=== PATIENT | male | born 1955 | race Caucasian/White ===

== ENCOUNTER 2017-10-29 20:22 | Inpatient (IN) | payer BC, OTHER ==
[2017-10-29] MEDS ORDERED: Sodium Chloride 0.9% 1,000 ML IV STA (20:42)
[2017-10-29] MEDS ORDERED: Morphine 4 MG/ML VIAL ONE ×2 (21:09→22:36)
[2017-10-29 21:25] LABS: BASO % 0.1 % (0.0-2.0); EOS % 0.1 % (0.0-4.0); HEMOGLOBIN 13.2 g/dL (12.0-18.0); LYMPH # 0.4 K/uL (1.0-4.3); LYMPH % 3.4 % (20.0-40.0); MEAN CELL VOLUME 87.4 fl (80.0-94.0); MEAN CORPUSCULAR HEMOGLOBIN 29.9 pg (27.0-31.0); MEAN CORPUSCULAR HGB CONC 34.2 g/dL (33.0-37.0); MEAN PLATELET VOLUME 6.7 fl (7.2-11.7); MONO # 0.4 K/uL (0.0-0.8); NEUT # 10.3 K/uL (1.8-7.0); NEUT % 92.4 % (50.0-75.0); PLATELET COUNT 317 K/uL (130-400); RBC 4.43 Mil/uL (4.40-5.90); RED CELL DISTRIBUTION WIDTH 13.9 % (11.5-14.5); WHITE BLOOD COUNT 11.1 K/uL (4.8-10.8)
--- NOTE | 2017-10-29 21:26 | ED PDOC ---
HPI: Abdomen Time Seen by Provider: 10/29/17 20:30 Chief Complaint (Nursing): Abdominal Pain Chief Complaint (Provider): abdominal pain History Per: Patient History/Exam Limitations: no limitations Onset/Duration Of Symptoms: Days (1), Gradual, Persistent Current Symptoms Are (Timing): Still Present Location Of Pain/Discomfort: RUQ, RLQ Quality Of Discomfort: "Pain" Associated Symptoms: Nausea, Vomiting, Diarrhea, Loss Of Appetite, Other ( distension). denies: Fever, Chills, Constipation, Urinary Symptoms Exacerbating Factors: Movement Alleviating Factors: None Past Medical History Reviewed: Historical Data, Nursing Documentation, Vital Signs Vital Signs: Last Vital Signs Temp 98.6 F 11/01/17 16:25 Pulse 69 11/01/17 16:25 Resp 20 11/01/17 16:25 BP 107/66 11/01/17 16:25 Pulse Ox 97 11/01/17 16:25 - Medical History PMH: Diverticulitis, HTN - Surgical History Surgical History: Hernia Repair (Umbilical) - Family History Family History: States: Hypertension - Living Arrangements Living Arrangements: With Family - Social History Current smoker - smoking cessation education provided: No Alcohol: None - Home Medications Home Medications: Ambulatory Orders Medication Instructions Recorded Aspirin [Lo-Dose Aspirin EC] 81 mg PO DAILY 10/30/17 Gabapentin [Neurontin] 300 mg PO BID 10/30/17 Metoprolol Tartrate [Lopressor] 25 mg PO BID 10/30/17 Naproxen [Naprosyn] 500 mg PO Q12H 10/30/17 Zolpidem [Ambien] 10 mg PO HS 10/30/17 - Allergies Allergies/Adverse Reactions: Allergies Allergy/AdvReac Type Severity Reaction Status Date / Time No Known Allergies Allergy Verified 10/29/17 20:24 Review of Systems ROS Statement: Except As Marked, All Systems Reviewed And Found Negative Constitutional: Negative for: Fever, Chills Gastrointestinal: Positive for: Nausea, Vomiting, Abdominal Pain, Diarrhea. Negative for: Constipation, Melena, Hematochezia, Rectal Pain Physical Exam - Reviewed Nursing Documentation Reviewed: Yes Vital Signs Reviewed: Yes - Physical Exam Appears: Positive for: Uncomfortable, In Acute Distress Head Exam: Positive for: ATRAUMATIC, NORMOCEPHALIC Skin: Positive for: Warm, Dry Eye Exam: Positive for: EOMI, PERRL ENT: Negative for: Pharyngeal Erythema, Tonsillar Exudate Neck: Positive for: Painless ROM, Supple Cardiovascular/Chest: Positive for: Regular Rate, Rhythm. Negative for: Murmur Respiratory: Positive for: Normal Breath Sounds. Negative for: Wheezing Gastrointestinal/Abdominal: Positive for: Soft, Tenderness (diffuse RIGHT>LEFT) , Distended. Negative for: Mass, Guarding, Rebound Back: Positive for: Normal Inspection. Negative for: Decreased ROM Extremity: Positive for: Normal ROM. Negative for: Deformity Lymphatic: Negative for: Adenopathy Neurologic/Psych: Positive for: Alert. Negative for: Motor/Sensory Deficits - Laboratory Results Result Diagrams: 11/01/17 05:30 11/01/17 05:30 Interpretation Of Abn Labs: Minimally elevated WBC - ECG ECG: Positive for: Interpreted By Me ECG Rhythm: Positive for: Normal QRS, Normal ST Segment, Sinus Rhythm O2 Sat by Pulse Oximetry: 96 Pulse Ox Interpretation: Normal - Other Rad Obstructive series X-Ray: Interpreted by Me X-Ray Interpretation: Airfluid levels x 5, otherwise NSBGP. No free air. No inf/ effusion - Progress ED Course And Treament: Pt's pain persisted despite IV Morphine. EXAM: CT Abdomen and Pelvis With Intravenous Contrast CLINICAL HISTORY: 61 years old, male; Pain; Abdominal pain; Localized; Right lower quadrant (rlq); Prior surgery; Surgery date: 6+ months; Surgery type: Hernia surgery yrs ago; Additional info: Severe abd pain and distension TECHNIQUE: Axial computed tomography images of the abdomen and pelvis with intravenous contrast. All CT scans at this facility use at least one of these dose optimization techniques: automated exposure control; mA and/or kV adjustment per patient size (includes targeted exams where dose is matched to clinical indication); or iterative reconstruction. Coronal and sagittal reformatted images were created and reviewed. CONTRAST: 95 mL of [id number] was administered intravenously. COMPARISON: No relevant prior studies available. FINDINGS: Lung bases: Atelectasis posterior lungs. ABDOMEN: Liver: 1.1 cm subcapsular cyst in the anterior liver. Gallbladder and bile ducts: Unremarkable. No calcified stones. No ductal dilation. Pancreas: Unremarkable. No mass. No ductal dilation. Spleen: Unremarkable. No splenomegaly. Adrenals: Unremarkable. No mass. Kidneys and ureters: Unremarkable. No solid mass. No hydronephrosis. Stomach and bowel: Mild mucosal thickening in the sigmoid colon where there are numerous diverticula. There is a small amount of gas and fluid adjacent to the sigmoid colon but no definite abscess. Fluid in the right colon consistent with diarrhea. No obstruction. PELVIS: Appendix: Normal appendix. Bladder: Unremarkable. No mass. Reproductive: Unremarkable as visualized. ABDOMEN and PELVIS: Intraperitoneal space: Unremarkable. No free air. No significant fluid collection. Bones/joints: No acute fracture. No dislocation. Soft tissues: Bilateral inguinal hernias containing fat. Vasculature: Unremarkable. No abdominal aortic aneurysm. Lymph nodes: Unremarkable. No enlarged lymph nodes. IMPRESSION: 1. Mild mucosal thickening in the sigmoid colon where there are numerous diverticula. Findings consistent with acute diverticulitis. 2. There is a small amount of gas and fluid adjacent to the sigmoid colon but no definite abscess. Findings consistent with perforation. 3. Fluid in the right colon consistent with diarrhea. Thank you for allowing us to participate in the care of your patient. Dictated and Authenticated by: Saeed Andrade MD 10/29/2017 11:27 PM Eastern Time ([place] & [place]) IV antibiotics ordered DW pt findings and plan of care. DW Dr Viveros for [facility] Re-evaluation Time: 23:00 Condition: Unchanged Medical Decision Making Medical Decision Making: Time: 2099 Plan: -- Type and Screen -- CT Abd/Pelvis IV Contrast -- EKG -- CMP -- Lact Acid, Plasma -- Lipase -- Magnesium -- Phosphorus -- ED Urine Dipstick -- CBC with differentials -- PTT -- Prothrombin Time -- Obstructive Series XR -- Morphine 4 mg IVP -- Sodium Chloride IV 1000 mls/hr -- Zofran Inj 8 mg IV Time: 2223 Plan: -- Morphine 6 mg IVP -- Blood Culture Time: 2341 Plan: -- General Surgery Consult -- Cipro 400 mg in 200 ml IV -- Flagyl [500 mg/100 ml NS] 100 ml IV DW pt findings and plan of care. Admitted to [facility] and Dr Viveros made aware. Scribe Attestation: Documented by Husam Dolan acting as a scribe for Stephania Mcrae MD. Provider Scribe Attestation: All medical record entries made by the Scribe were at my direction and personally dictated by me. I have reviewed the chart and agree that the record accurately reflects my personal performance of the medical decision making for this patient. I have also personally directed, reviewed, and agree with the discharge instructions and disposition. Disposition - Clinical Impression Clinical Impression: Diverticulitis Discussed With Dr.: Flex Viveros Doctor Will See Patient In The: Hospital Counseled Patient/Family Regarding: Studies Performed, Diagnosis - Disposition Disposition Time: 23:00 Condition: FAIR - Pt Status Changed To: Hospital Disposition Of: Observation - POA Present On Arrival: None
[2017-10-29 21:27] LABS: INR 1.2; PROTHROMBIN TIME 13.8 Seconds (9.8-13.1)
[2017-10-29 21:30] LABS: PARTIAL THROMBOPLASTIN TIME 30.6 Seconds (25.6-37.1)
[2017-10-29 21:34] LABS: ALB/GLOB RATIO 1.2 (1.0-2.1); ALBUMIN 3.9 g/dL (3.5-5.0); ALT/SGPT 37 U/L (21-72); AST/SGOT 28 U/L (17-59); BLOOD UREA NITROGEN 14 mg/dl (9-20); CALCIUM 8.9 mg/dL (8.4-10.2); GFR NON-AFRICAN AMERICAN > 60
[2017-10-29 21:59] LABS: LIPASE < 10 U/L (23-300)
[2017-10-29 22:45] LABS: TOTAL CELLS COUNTED 100
[2017-10-29 22:46] LABS: ANISOCYTOSIS SLIGHT; GIANT PLATELETS PRESENT; LYMPHOCYTE 2 % (20-50); MONOCYTE 5 % (0-10); NEUTROPHIL 93 % (42-75); PLATELET ESTIMATE NORMAL (NORMAL); ROULEAUX FORMATION SLIGHT
[2017-10-29] MEDS ORDERED: Iohexol 300 100 ML IJ ONE ×2 (22:54)
[2017-10-29] MEDS ORDERED: Sodium Chloride 0.9% 50 ML IV ONE (22:54)
[2017-10-29] MEDS ORDERED: Ciprofloxacin 400mg/200ml D5W 400 MG/200 ML BAG IV STA (23:28)
[2017-10-29] MEDS ORDERED: metroNIDAZOLE 500mg/100ml NS 100 ML IV STA (23:28)
[2017-10-30] MEDS ORDERED: Ciprofloxacin 400mg/200ml D5W 400 MG/200 ML BAG IVPB ONE (00:42)
[2017-10-30] MEDS ORDERED: metroNIDAZOLE 500mg/100ml NS 100 ML IVPB ONE (00:42)
--- NOTE | 2017-10-30 00:54 | CP.PCM.CON ---
<Tj Jacob - Last Filed: 10/30/17 00:38> History of Present Illness - History of Present Illness History of Present Illness: General Surgery Consult Re: diverticulitis with microperforation HPI: 61M presented to the ED with RLQ/suprapubic abd pain that began earlier today. Pain kept increasing and he had some nausea with bilious, nonbloody emesis and a small amount of nonbloody stool. By noon he had trouble moving due to the pain. Occasional chills. Had a colonoscopy last which showed severe diverticulosis in the sigmoid and he has a referral to a surgeon at [place] with an appointment on the . Also had a recent stress test that he is following up on the as well. PMH: Hx gastric ulcers, HTN, diverticulosis, heart valve regurg PSH: umbilical hernia, R trigger finger, L hand surgery FH: noncontributory SH: No tobacco, EtOH, or drug use, Works at [employer] All: NKDA Meds: See MAR Review of Systems - Review of Systems All systems: reviewed and no additional remarkable complaints except (as per HPI ) Past Patient History - Past Social History Alcohol: None - CARDIAC Hx Hypertension: Yes - GASTROINTESTINAL Hx Diverticulitis: Yes - PSYCHIATRIC Hx Substance Use: No - SURGICAL HISTORY Hx Herniorrhaphy: Yes Meds Allergies/Adverse Reactions: Allergies Allergy/AdvReac Type Severity Reaction Status Date / Time No Known Allergies Allergy Verified 10/29/17 20:24 Physical Exam - Constitutional Appears: Non-toxic, No Acute Distress - Head Exam Head Exam: ATRAUMATIC, NORMOCEPHALIC - Eye Exam Eye Exam: EOMI. absent: Scleral icterus - ENT Exam ENT Exam: Mucous Membranes Moist Additional comments: trachea midline - Neck Exam Neck exam: Positive for: Full Rom. Negative for: Tenderness - Respiratory Exam Respiratory Exam: NORMAL BREATHING PATTERN. absent: Respiratory Distress - Cardiovascular Exam Cardiovascular Exam: RRR, +S1, +S2 - GI/Abdominal Exam GI & Abdominal Exam: Distended, Soft, Tenderness (worst in RLQ and suprapubic area). absent: Firm, Guarding, Hernia, Rebound, Rigid Additional comments: Lap hernia repair scars, well healed Diastasis recti - Rectal Exam Rectal Exam: Deferred - Extremities Exam Extremities exam: Positive for: normal capillary refill, pedal pulses present. Negative for: calf tenderness, pedal edema - Back Exam Back exam: absent: CVA tenderness (L), CVA tenderness (R) - Neurological Exam Neurological exam: Alert, Oriented x3 - Skin Skin Exam: Dry, Warm Results - Vital Signs Recent Vital Signs: Last Vital Signs Temp 99.3 F 10/29/17 20:24 Pulse 93 H 10/29/17 20:24 Resp 18 10/29/17 20:24 BP 97/58 L 10/29/17 20:24 Pulse Ox 96 10/30/17 00:10 - Labs Result Diagrams: 10/29/17 21:00 10/29/17 21:00 Labs: Laboratory Results - last 24 hr 10/29/17 10/29/17 10/29/17 21:00 21:00 21:00 WBC 11.1 H RBC 4.43 Hgb 13.2 Hct 38.7 MCV 87.4 MCH 29.9 MCHC 34.2 RDW 13.9 Plt Count 317 MPV 6.7 L Neut % (Auto) 92.4 H Lymph % (Auto) 3.4 L Pettis % (Auto) 4.0 Eos % (Auto) 0.1 Baso % (Auto) 0.1 Neut # (Auto) 10.3 H Lymph # (Auto) 0.4 L Pettis # (Auto) 0.4 Eos # (Auto) 0.0 Baso # (Auto) 0.0 Neutrophils % (Manual) 93 H Lymphocytes % (Manual) 2 L Monocytes % (Manual) 5 Platelet Estimate Normal Giant Platelets Present Anisocytosis (manual) Slight Rouleaux Slight PT 13.8 H INR 1.2 APTT 30.6 Sodium 140 Potassium 3.7 Chloride 107 Carbon Dioxide 23 Anion Gap 14 BUN 14 Creatinine 1.2 Est GFR ( Amer) > 60 Est GFR (Non-Af Amer) > 60 Random Glucose 112 H Lactic Acid Calcium 8.9 Phosphorus 2.6 Magnesium 2.0 Total Bilirubin 1.3 AST 28 ALT 37 Alkaline Phosphatase 115 Total Protein 7.1 Albumin 3.9 Globulin 3.2 Albumin/Globulin Ratio 1.2 Lipase < 10 L Blood Type Antibody Screen BBK History Checked 10/29/17 10/29/17 21:00 21:00 WBC RBC Hgb Hct MCV MCH MCHC RDW Plt Count MPV Neut % (Auto) Lymph % (Auto) Pettis % (Auto) Eos % (Auto) Baso % (Auto) Neut # (Auto) Lymph # (Auto) Pettis # (Auto) Eos # (Auto) Baso # (Auto) Neutrophils % (Manual) Lymphocytes % (Manual) Monocytes % (Manual) Platelet Estimate Giant Platelets Anisocytosis (manual) Rouleaux PT INR APTT Sodium Potassium Chloride Carbon Dioxide Anion Gap BUN Creatinine Est GFR ( Amer) Est GFR (Non-Af Amer) Random Glucose Lactic Acid 1.4 Calcium Phosphorus Magnesium Total Bilirubin AST ALT Alkaline Phosphatase Total Protein Albumin Globulin Albumin/Globulin Ratio Lipase Blood Type O POSITIVE Antibody Screen Negative BBK History Checked No verified bt - Imaging and Cardiology CT scan - abdomen Status: Image reviewed by me, Report reviewed by me Assessment & Plan - Assessment and Plan (Free Text) Assessment: 61M with diverticulitis, possible microperforation. Plan: Serial abd exams NPO IVF Analgesia Continue abx Will discuss with Dr. Kasandra Jacob PGY4 <Jay Slaughter - Last Filed: 10/30/17 10:25> History of Present Illness - History of Present Illness History of Present Illness: Patient was seen and examined at the bedside. Agree with resident's note above. Meds - Medications Medications: Current Medications Hydromorphone HCl (Dilaudid) 1 mg IVP Q4 PRN PRN Reason: Pain, severe (8-10) Sodium Chloride (Sodium Chloride 0.9%) 1,000 mls @ 125 mls/hr IV .Q8H [facility] Stop: 10/31/17 01:11 Last Admin: 10/30/17 04:04 Dose: 125 mls/hr Sodium Chloride (Sodium Chloride 0.9%) 1,000 mls @ 1,000 mls/hr IV .Q1H [facility] Stop: 10/31/17 01:21 Last Admin: 10/30/17 05:57 Dose: 1,000 mls/hr Piperacillin Sod/Tazobactam (Sod 3.375 gm/ Sodium Chloride) 100 mls @ 100 mls/ hr IVPB Q6 ANTIONE PRN Reason: Protocol Last Admin: 10/30/17 09:20 Dose: 100 mls/hr Lactated Ringer's (Lactated Ringer's) 1,000 mls @ 0 mls/hr IV .Q0M ANTIONE PRN Reason: UD Morphine Sulfate (Morphine) 4 mg IVP Q4 PRN PRN Reason: Pain, moderate (4-7) Last Admin: 10/30/17 08:05 Dose: 4 mg Ondansetron HCl (Zofran Inj) 4 mg IVP Q4 PRN PRN Reason: Nausea/Vomiting Physical Exam - GI/Abdominal Exam Additional comments: soft, diffusely tender, distended, BS+, well healed scars from prior surgery Results - Vital Signs Recent Vital Signs: Last Vital Signs Temp 98.8 F 10/30/17 08:02 Pulse 81 10/30/17 08:02 Resp 20 10/30/17 08:02 BP 95/60 L 10/30/17 08:02 Pulse Ox 95 10/30/17 08:02 - Labs Result Diagrams: 10/29/17 21:00 10/29/17 21:00 Labs: Laboratory Results - last 24 hr 10/29/17 10/29/17 10/29/17 21:00 21:00 21:00 WBC 11.1 H RBC 4.43 Hgb 13.2 Hct 38.7 MCV 87.4 MCH 29.9 MCHC 34.2 RDW 13.9 Plt Count 317 MPV 6.7 L Neut % (Auto) 92.4 H Lymph % (Auto) 3.4 L Pettis % (Auto) 4.0 Eos % (Auto) 0.1 Baso % (Auto) 0.1 Neut # (Auto) 10.3 H Lymph # (Auto) 0.4 L Pettis # (Auto) 0.4 Eos # (Auto) 0.0 Baso # (Auto) 0.0 Neutrophils % (Manual) 93 H Lymphocytes % (Manual) 2 L Monocytes % (Manual) 5 Platelet Estimate Normal Giant Platelets Present Anisocytosis (manual) Slight Rouleaux Slight PT 13.8 H INR 1.2 APTT 30.6 Sodium 140 Potassium 3.7 Chloride 107 Carbon Dioxide 23 Anion Gap 14 BUN 14 Creatinine 1.2 Est GFR ( Amer) > 60 Est GFR (Non-Af Amer) > 60 POC Glucose (mg/dL) Random Glucose 112 H Lactic Acid Calcium 8.9 Phosphorus 2.6 Magnesium 2.0 Total Bilirubin 1.3 AST 28 ALT 37 Alkaline Phosphatase 115 Total Protein 7.1 Albumin 3.9 Globulin 3.2 Albumin/Globulin Ratio 1.2 Lipase < 10 L Blood Type Antibody Screen BBK History Checked 10/29/17 10/29/17 10/30/17 21:00 21:00 01:11 WBC RBC Hgb Hct MCV MCH MCHC RDW Plt Count MPV Neut % (Auto) Lymph % (Auto) Pettis % (Auto) Eos % (Auto) Baso % (Auto) Neut # (Auto) Lymph # (Auto) Pettis # (Auto) Eos # (Auto) Baso # (Auto) Neutrophils % (Manual) Lymphocytes % (Manual) Monocytes % (Manual) Platelet Estimate Giant Platelets Anisocytosis (manual) Rouleaux PT INR APTT Sodium Potassium Chloride Carbon Dioxide Anion Gap BUN Creatinine Est GFR ( Amer) Est GFR (Non-Af Amer) POC Glucose (mg/dL) 240 H Random Glucose Lactic Acid 1.4 Calcium Phosphorus Magnesium Total Bilirubin AST ALT Alkaline Phosphatase Total Protein Albumin Globulin Albumin/Globulin Ratio Lipase Blood Type O POSITIVE Antibody Screen Negative BBK History Checked No verified bt - Imaging and Cardiology CT scan - abdomen Status: Image reviewed by me, Report reviewed by me Assessment & Plan - Assessment and Plan (Free Text) Plan: - Keep NPO - IV fluids - 1 litter bolus now - Continue antibiotics - Pain control - Repeat labs in am - Will follow
[2017-10-30] MEDS ORDERED: Morphine 4 MG/ML VIAL IVP PRN (01:12)
[2017-10-30] MEDS ORDERED: Sodium Chloride 0.9% 1,000 ML IV SCH (01:30)
[2017-10-30] MEDS ORDERED: Morphine 4 MG/ML VIAL ONE (03:18)
[2017-10-30] MEDS: Sodium Chloride 0.9% 1,000 ML IV SCH ×3 (04:04→22:34)
[2017-10-30] MEDS ORDERED: Piperacillin/Tazobact 3.375 GM in Sodium Chloride 0.9% 100 ML IVPB STA (04:37)
--- NOTE | 2017-10-30 08:47 | CARD ---
APPROVED REPORT Date of service: 10/29/2017 <Conclusion> Normal sinus rhythm Normal ECG
--- NOTE | 2017-10-30 09:00 | RAD ---
Date of service: 10/29/2017 PROCEDURE: Radiographs of the chest and abdomen (obstructive series) HISTORY: abd pain and distension COMPARISON: No prior. TECHNIQUE: AP radiograph of the chest, with upright and supine radiographs of the abdomen. FINDINGS: CHEST: Lungs: The lungs are well inflated and clear. Cardiovascular: Normal size heart. No pulmonary vascular congestion. Pleura: No pleural fluid. No pneumothorax. Other findings: None. ABDOMEN AND PELVIS: Bowel: There are small fluid levels in the abdomen. . Free air: None. Bones: Unremarkable. Other findings: None. IMPRESSION: Clear lungs. Small fluid levels may represent nonspecific enteritis or ileus.
[2017-10-30] MEDS: Piperacillin/Tazobact 3.375 GM in Sodium Chloride 0.9% 100 ML IVPB SCH ×3 (09:20→21:24)
[2017-10-30] MEDS ORDERED: HYDROmorphone 1 mg/ml ISec IVP PRN (10:20)
[2017-10-30] MEDS ORDERED: Lactated Ringer's 1,000 ML IV SCH ×2 (10:30)
--- NOTE | 2017-10-30 11:09 | CT ---
Date of service: 10/29/2017 PROCEDURE: CT Abdomen and Pelvis with contrast HISTORY: severe abd pain and distension COMPARISON: None available TECHNIQUE: Contrast dose: 95 mL Omnipaque 300 Radiation dose: Total exam DLP = 786.36 mGy-cm. This CT exam was performed using one or more of the following dose reduction techniques: Automated exposure control, adjustment of the mA and/or kV according to patient size, and/or use of iterative reconstruction technique. FINDINGS: LOWER THORAX: Bibasilar infiltrates. LIVER: 1.1 cm low-density lesion within the anterior appears consistent with a cyst. Hypoattenuation of the liver compatible with hepatic steatosis. GALLBLADDER AND BILE DUCTS: Gallbladder distension without evidence of gallstone. PANCREAS: Fatty atrophy. SPLEEN: Unremarkable. ADRENALS: Unremarkable. KIDNEYS AND URETERS: The kidneys enhance symmetrically. No hydronephrosis or obstructing calculus identified. VASCULATURE: No aortic aneurysm. BOWEL: Stomach is nondistended. Lack of oral contrast limits evaluation for bowel pathology. Bowel loops appear within normal limits of caliber without evidence of obstruction. Mild mucosal thickening involving the sigmoid colon in region with numerous diverticula. Small gas and fluid adjacent the sigmoid colon. No definite abscess. Fluid within the right colon may be seen in the setting of diarrheal illness. APPENDIX: The appendix appears within normal limits of caliber. No secondary signs of acute appendicitis. LYMPH NODES: No bulky adenopathy identified. BLADDER: Unremarkable. REPRODUCTIVE: Prostate gland measures approximately 4.0 x 4.6 cm. BONES: Degenerative changes. OTHER FINDINGS: Bilateral fat containing inguinal hernias. Tiny ventral wall hernia. IMPRESSION: Findings as above appear consistent with acute diverticulitis involving the sigmoid colon. Small amount of gas and fluid adjacent to the sigmoid colon without definite abscess. Findings consistent with small perforation. Enlarged prostate gland. Recommend correlation with PSA. Gallbladder distension without evidence of gallstone. Suggest correlation with right upper quadrant ultrasound. Additional findings as above. Preliminary impression was provided by virtual radiologic. Study has been marked for PA review.
--- NOTE | 2017-10-30 11:48 | CP.PCM.HP ---
History of Present Illness - History of Present Illness History of Present Illness: 61M presented to the ED with RLQ/suprapubic abd pain that began earlier today. Pain kept increasing and he had some nausea with bilious, nonbloody emesis and a small amount of nonbloody stool. By noon he had trouble moving due to the pain. Occasional chills. Had a colonoscopy last which showed severe diverticulosis in the sigmoid and he has a referral to a surgeon at [place] with an appointment on the . Also had a recent stress test that he is following up on the as well. pt is stable now, c/o pain, vss. Present on Admission - Present on Admission Any Indicators Present on Admission: No Review of Systems - Constitutional Constitutional: absent: As Per HPI, Anorexia, Chills, Daytime Sleepiness, Excessive Sweating, Fatigue, Fever, Frequent Falls, Headache, Increased Appetite , Lethargy, Malaise, Night Sweats, Snoring, Sleep Apnea, Weight Gain, Weight Loss, Weakness, Other - EENT Eyes: absent: As Per HPI, Blind Spots, Blurred Vision, Change in Vision, Decreased Night Vision, Diplopia, Discharge, Dry Eye, Exophthalmos, Floaters, Irritation, Itchy Eyes, Loss of Peripheral Vision, Pain, Photophobia, Requires Corrective Lenses, Sees Flashes, Spots in Vision, Tunnel Vision, Other Visual Disturbances, Loss of Vision, Other Nose/Mouth/Throat: absent: As Per HPI, Epistaxis, Nasal Congestion, Nasal Discharge, Nasal Obstruction, Nasal Trauma, Nose Pain, Post Nasal Drip, Sinus Pain, Sinus Pressure, Bleeding Gums, Change in Voice, Dental Pain, Dry Mouth, Dysphagia, Halitosis, Hoarsness, Lip Swelling, Mouth Lesions, Mouth Pain, Odynophagia, Sore Throat, Throat Swelling, Tongue Swelling, Facial Pain, Neck Pain, Neck Mass, Other - Cardiovascular Cardiovascular: absent: As Per HPI, Acrocyanosis, Chest Pain, Chest Pain at Rest , Chest Pain with Activity, Claudication, Diaphoresis, Dyspnea, Dyspnea on Exertion, Edema, Irregular Heart Rhythm, Pain Radiating to Arm/Neck/Jaw, Leg Edema, Leg Ulcers, Lightheadedness, Orthopnea, Palpitations, Paroxysmal Nocturnal Dyspnea, Pedal Edema, Radiating Pain, Rapid Heart Rate, Slow Heart Rate, Syncope, Other - Respiratory Respiratory: absent: As Per HPI, Cough, Dyspnea, Hemoptysis, Dyspnea on Exertion , Wheezing, Snoring, Stridor, Pain on Inspiration, Chest Congestion, Excessive Mucous Production, Change in Mucous Color, Pain with Coughing, Other - Gastrointestinal Gastrointestinal: Abdominal Pain - Neurological Neurological: absent: As Per HPI, Abnormal Gait, Abnormal Hearing, Abnormal Movements, Abnormal Speech, Behavioral Changes, Burning Sensations, Confusion, Convulsions, Disequilibrium, Dizziness, Numbness, Focal Weakness, Frequent Falls , Headaches, Lack of Coordination, Loss of Vision, Memory Loss, Paresthesias, Radicular Pain, Restless Legs, Sensory Deficit, Syncope, Tingling, Tremor, Vertigo, Weakness, Other Visual Disturbances, Other Past Patient History - Past Social History Smoking Status: Never Smoked - CARDIAC Hx Hypertension: Yes Other/Comment: heart valve regurgitation - PULMONARY Hx Respiratory Disorders: No - NEUROLOGICAL Hx Neurological Disorder: No - HEENT Hx HEENT Problems: No - RENAL Hx Chronic Kidney Disease: No - ENDOCRINE/METABOLIC Hx Endocrine Disorders: No - HEMATOLOGICAL/ONCOLOGICAL Hx Blood Disorders: No - INTEGUMENTARY Hx Dermatological Problems: No - MUSCULOSKELETAL/RHEUMATOLOGICAL Hx Falls: No - GASTROINTESTINAL Hx Diverticulitis: Yes - GENITOURINARY/GYNECOLOGICAL Hx Genitourinary Disorders: No - PSYCHIATRIC Hx Substance Use: No - SURGICAL HISTORY Hx Herniorrhaphy: Yes Other/Comment: Hand surgery - ANESTHESIA Hx Anesthesia: Yes Hx Anesthesia Reactions: No Hx Malignant Hyperthermia: No Has any member of the family had a problem w/ anesthesia?: No Meds Allergies/Adverse Reactions: Allergies Allergy/AdvReac Type Severity Reaction Status Date / Time No Known Allergies Allergy Verified 10/29/17 20:24 Physical Exam - Constitutional Appears: Non-toxic - Head Exam Head Exam: NORMAL INSPECTION - Eye Exam Eye Exam: Normal appearance Pupil Exam: NORMAL ACCOMODATION - ENT Exam ENT Exam: Mucous Membranes Moist - Respiratory Exam Respiratory Exam: Clear to Auscultation Bilateral, NORMAL BREATHING PATTERN - Cardiovascular Exam Cardiovascular Exam: REGULAR RHYTHM, +S1, +S2 - GI/Abdominal Exam GI & Abdominal Exam: Tenderness - Extremities Exam Extremities exam: Positive for: normal inspection - Neurological Exam Neurological exam: Alert, Oriented x3 Results - Vital Signs Recent Vital Signs: Last Vital Signs Temp 98.8 F 10/30/17 08:02 Pulse 81 10/30/17 08:02 Resp 20 10/30/17 08:02 BP 95/60 L 10/30/17 08:02 Pulse Ox 95 10/30/17 08:02 - Labs Result Diagrams: 10/29/17 21:00 10/29/17 21:00 Labs: Laboratory Results - last 24 hr 10/29/17 10/29/17 10/29/17 21:00 21:00 21:00 WBC 11.1 H RBC 4.43 Hgb 13.2 Hct 38.7 MCV 87.4 MCH 29.9 MCHC 34.2 RDW 13.9 Plt Count 317 MPV 6.7 L Neut % (Auto) 92.4 H Lymph % (Auto) 3.4 L Hays % (Auto) 4.0 Eos % (Auto) 0.1 Baso % (Auto) 0.1 Neut # (Auto) 10.3 H Lymph # (Auto) 0.4 L Hays # (Auto) 0.4 Eos # (Auto) 0.0 Baso # (Auto) 0.0 Neutrophils % (Manual) 93 H Lymphocytes % (Manual) 2 L Monocytes % (Manual) 5 Platelet Estimate Normal Giant Platelets Present Anisocytosis (manual) Slight Rouleaux Slight PT 13.8 H INR 1.2 APTT 30.6 Sodium 140 Potassium 3.7 Chloride 107 Carbon Dioxide 23 Anion Gap 14 BUN 14 Creatinine 1.2 Est GFR ( Amer) > 60 Est GFR (Non-Af Amer) > 60 POC Glucose (mg/dL) Random Glucose 112 H Lactic Acid Calcium 8.9 Phosphorus 2.6 Magnesium 2.0 Total Bilirubin 1.3 AST 28 ALT 37 Alkaline Phosphatase 115 Total Protein 7.1 Albumin 3.9 Globulin 3.2 Albumin/Globulin Ratio 1.2 Lipase < 10 L Blood Type Antibody Screen BBK History Checked 10/29/17 10/29/17 10/30/17 21:00 21:00 01:11 WBC RBC Hgb Hct MCV MCH MCHC RDW Plt Count MPV Neut % (Auto) Lymph % (Auto) Hays % (Auto) Eos % (Auto) Baso % (Auto) Neut # (Auto) Lymph # (Auto) Hays # (Auto) Eos # (Auto) Baso # (Auto) Neutrophils % (Manual) Lymphocytes % (Manual) Monocytes % (Manual) Platelet Estimate Giant Platelets Anisocytosis (manual) Rouleaux PT INR APTT Sodium Potassium Chloride Carbon Dioxide Anion Gap BUN Creatinine Est GFR ( Amer) Est GFR (Non-Af Amer) POC Glucose (mg/dL) 240 H Random Glucose Lactic Acid 1.4 Calcium Phosphorus Magnesium Total Bilirubin AST ALT Alkaline Phosphatase Total Protein Albumin Globulin Albumin/Globulin Ratio Lipase Blood Type O POSITIVE Antibody Screen Negative BBK History Checked No verified bt Assessment & Plan - Assessment and Plan (Free Text) Assessment: 1. Ac diverticulitis with microperf CT results reviewed zosyn surgery consulted pain management will cont to monitor npo 2. htn bp is low cont ivf hold meds 3. insomnia ambien 5 prn 4. dvt px
[2017-10-31] MEDS: Piperacillin/Tazobact 3.375 GM in Sodium Chloride 0.9% 100 ML IVPB SCH ×4 (04:19→21:14)
[2017-10-31 06:31] LABS: HEMOGLOBIN 11.4 g/dL (12.0-18.0); MEAN CORPUSCULAR HEMOGLOBIN 30.2 pg (27.0-31.0); MEAN CORPUSCULAR HGB CONC 33.9 g/dL (33.0-37.0); RBC 3.77 Mil/uL (4.40-5.90); WHITE BLOOD COUNT 10.6 K/uL (4.8-10.8)
[2017-10-31 06:45] LABS: ALB/GLOB RATIO 1.1 (1.0-2.1); ALBUMIN 3.1 g/dL (3.5-5.0); ALT/SGPT 30 U/L (21-72); AST/SGOT 30 U/L (17-59); BLOOD UREA NITROGEN 14 mg/dl (9-20); CALCIUM 8.4 mg/dL (8.4-10.2); GFR NON-AFRICAN AMERICAN > 60
[2017-10-31] MEDS ORDERED: Pantoprazole 40 MG in Sodium Chloride 0.9% 100 ML IVPB SCH (09:00)
--- NOTE | 2017-10-31 09:18 | CP.PCM.PN ---
<Arleen Florian - Last Filed: 10/31/17 09:19> Subjective - Date & Time of Evaluation Date of Evaluation: 10/31/17 Time of Evaluation: 09:16 - Subjective Subjective: General surgery progress note for Dr. Slaughter-Arleen Florian, PGY-2 Pt S & E at bedside at 0710 Pt reports improved pain control on Dilaudid. Denies N & V, flatus, BM. Is currently itchy. Objective - Vital Signs/Intake and Output Vital Signs (last 24 hours): Temp Pulse Resp BP Pulse Ox 98.7 F 86 20 104/64 93 L 10/31/17 08:17 10/31/17 08:17 10/31/17 08:17 10/31/17 08:17 10/31/17 08:17 - Medications Medications: Current Medications Hydromorphone HCl (Dilaudid) 1 mg IVP Q4 PRN PRN Reason: Pain, severe (8-10) Last Admin: 10/31/17 05:52 Dose: 1 mg Piperacillin Sod/Tazobactam (Sod 3.375 gm/ Sodium Chloride) 100 mls @ 100 mls/ hr IVPB Q6 ANTIONE PRN Reason: Protocol Last Admin: 10/31/17 04:19 Dose: 100 mls/hr Lactated Ringer's (Lactated Ringer's) 1,000 mls @ 999 mls/hr IV .Q1H1M ANTIONE Morphine Sulfate (Morphine) 4 mg IVP Q4 PRN PRN Reason: Pain, moderate (4-7) Last Admin: 10/30/17 08:05 Dose: 4 mg Ondansetron HCl (Zofran Inj) 4 mg IVP Q4 PRN PRN Reason: Nausea/Vomiting Pantoprazole Sodium (Protonix Inj) 40 mg IVP DAILY ANTIONE Zolpidem Tartrate (Ambien) 5 mg PO HS PRN PRN Reason: Insomnia Stop: 11/03/17 11:00 Last Admin: 10/30/17 22:27 Dose: 5 mg - Labs Labs: 10/31/17 05:50 10/31/17 05:50 PT 13.8 Seconds (9.8-13.1) H 10/29/17 21:00 INR 1.2 10/29/17 21:00 APTT 30.6 Seconds (25.6-37.1) 10/29/17 21:00 - Constitutional Appears: Non-toxic, No Acute Distress - Head Exam Head Exam: ATRAUMATIC, NORMAL INSPECTION, NORMOCEPHALIC - Eye Exam Eye Exam: EOMI, Normal appearance - ENT Exam ENT Exam: Mucous Membranes Moist, Normal Exam - Neck Exam Neck Exam: Full ROM, Normal Inspection - Respiratory Exam Respiratory Exam: NORMAL BREATHING PATTERN - Cardiovascular Exam Cardiovascular Exam: REGULAR RHYTHM, +S1, +S2 - GI/Abdominal Exam GI & Abdominal Exam: Distended (mildly), Tenderness (Suprapubic, RLQ -improved) . absent: Firm, Guarding, Mass - Extremities Exam Extremities Exam: Normal Inspection - Neurological Exam Neurological Exam: Alert, Awake, CN II-XII Intact, Oriented x3 - Psychiatric Exam Psychiatric exam: Normal Affect, Normal Mood - Skin Skin Exam: Dry, Intact, Normal Color, Warm Assessment and Plan - Assessment and Plan (Free Text) Assessment: 61M w/sigmoid diverticulitis Plan: Cont pain control Strict NPO Ok for mouth swabs Serial ab exams IVF Cont IV Abx DW Dr. Kasandra Florian, PGY-2 <Jay Slaughter - Last Filed: 10/31/17 11:02> Subjective - Date & Time of Evaluation Time of Evaluation: 10:35 - Subjective Subjective: Patient was seen and examined at the bedside. Agree with resident's note above. Objective - Vital Signs/Intake and Output Vital Signs (last 24 hours): Temp Pulse Resp BP Pulse Ox 98.7 F 86 20 104/64 93 L 10/31/17 08:17 10/31/17 08:17 10/31/17 08:17 10/31/17 08:17 10/31/17 08:17 - Medications Medications: Current Medications Hydromorphone HCl (Dilaudid) 1 mg IVP Q4 PRN PRN Reason: Pain, severe (8-10) Last Admin: 10/31/17 05:52 Dose: 1 mg Piperacillin Sod/Tazobactam (Sod 3.375 gm/ Sodium Chloride) 100 mls @ 100 mls/ hr IVPB Q6 ANTIONE PRN Reason: Protocol Last Admin: 10/31/17 04:19 Dose: 100 mls/hr Potassium Chloride/Dextrose/Sod Cl (Potassium Chl 20 Meq In D5-1/2ns) 1,000 mls @ 125 mls/hr IV .Q8H ANTIONE Stop: 11/01/17 09:19 Last Admin: 10/31/17 10:48 Dose: 125 mls/hr Morphine Sulfate (Morphine) 4 mg IVP Q4 PRN PRN Reason: Pain, moderate (4-7) Last Admin: 10/30/17 08:05 Dose: 4 mg Ondansetron HCl (Zofran Inj) 4 mg IVP Q4 PRN PRN Reason: Nausea/Vomiting Pantoprazole Sodium (Protonix Inj) 40 mg IVP DAILY [facility] Last Admin: 10/31/17 10:47 Dose: 40 mg Zolpidem Tartrate (Ambien) 5 mg PO HS PRN PRN Reason: Insomnia Stop: 11/03/17 11:00 Last Admin: 10/30/17 22:27 Dose: 5 mg - Labs Labs: 10/31/17 05:50 10/31/17 05:50 PT 13.8 Seconds (9.8-13.1) H 10/29/17 21:00 INR 1.2 10/29/17 21:00 APTT 30.6 Seconds (25.6-37.1) 10/29/17 21:00 - GI/Abdominal Exam Additional comments: soft, tender in the lower abdomen, mildly distended, BS+, no rebound, no guarding, well healed scars from prior surgery Assessment and Plan - Assessment and Plan (Free Text) Plan: - Repeat labs in am - Will follow
[2017-10-31] MEDS: Potassium Ch 20mEq in D5-1/2NS 1,000 ML IV SCH (10:48)
--- NOTE | 2017-10-31 11:53 | CP.PCM.PN ---
Subjective - Date & Time of Evaluation Date of Evaluation: 10/31/17 Time of Evaluation: 11:00 - Subjective Subjective: pt examined at bedside. no fever, no new complaints. npo Objective - Vital Signs/Intake and Output Vital Signs (last 24 hours): Temp Pulse Resp BP Pulse Ox 98.7 F 86 20 104/64 93 L 10/31/17 08:17 10/31/17 08:17 10/31/17 08:17 10/31/17 08:17 10/31/17 08:17 - Medications Medications: Current Medications Hydromorphone HCl (Dilaudid) 1 mg IVP Q4 PRN PRN Reason: Pain, severe (8-10) Last Admin: 10/31/17 11:12 Dose: 1 mg Piperacillin Sod/Tazobactam (Sod 3.375 gm/ Sodium Chloride) 100 mls @ 100 mls/ hr IVPB Q6 ANTIONE PRN Reason: Protocol Last Admin: 10/31/17 04:19 Dose: 100 mls/hr Potassium Chloride/Dextrose/Sod Cl (Potassium Chl 20 Meq In D5-1/2ns) 1,000 mls @ 125 mls/hr IV .Q8H ANTIONE Stop: 11/01/17 09:19 Last Admin: 10/31/17 10:48 Dose: 125 mls/hr Morphine Sulfate (Morphine) 4 mg IVP Q4 PRN PRN Reason: Pain, moderate (4-7) Last Admin: 10/30/17 08:05 Dose: 4 mg Ondansetron HCl (Zofran Inj) 4 mg IVP Q4 PRN PRN Reason: Nausea/Vomiting Pantoprazole Sodium (Protonix Inj) 40 mg IVP DAILY [facility] Last Admin: 10/31/17 10:47 Dose: 40 mg Zolpidem Tartrate (Ambien) 5 mg PO HS PRN PRN Reason: Insomnia Stop: 11/03/17 11:00 Last Admin: 10/30/17 22:27 Dose: 5 mg - Labs Labs: 10/31/17 05:50 10/31/17 05:50 PT 13.8 Seconds (9.8-13.1) H 10/29/17 21:00 INR 1.2 10/29/17 21:00 APTT 30.6 Seconds (25.6-37.1) 10/29/17 21:00 - Head Exam Head Exam: NORMAL INSPECTION - Eye Exam Pupil Exam: NORMAL ACCOMODATION - ENT Exam ENT Exam: Mucous Membranes Moist - Respiratory Exam Respiratory Exam: Clear to Ausculation Bilateral, NORMAL BREATHING PATTERN - Cardiovascular Exam Cardiovascular Exam: REGULAR RHYTHM - GI/Abdominal Exam GI & Abdominal Exam: Soft, Normal Bowel Sounds - Extremities Exam Extremities Exam: Full ROM, Normal Inspection - Neurological Exam Neurological Exam: Alert, Oriented x3 Assessment and Plan - Assessment and Plan (Free Text) Assessment: sigmoid diverticulitis Plan: npo cont iv abx surgery on board cont to monitor.
--- NOTE | 2017-10-31 18:32 | CP.PCM.PN ---
Subjective - Date & Time of Evaluation Date of Evaluation: 10/31/17 Time of Evaluation: 18:26 - Subjective Subjective: ID NOTE PATIENT EXAMINED,HISTORY TAKEN PERFORATED DIVERTICULITI ON ZOSYN,HAVE ADDED FLAGYL TO TREATMENT PRESENTLY IS AFEBRILE WILL REVIEW c SURGERY Objective - Vital Signs/Intake and Output Vital Signs (last 24 hours): Temp Pulse Resp BP Pulse Ox 99.7 F H 91 H 20 127/71 96 10/31/17 17:00 10/31/17 15:58 10/31/17 15:58 10/31/17 15:58 10/31/17 15:58 - Medications Medications: Current Medications Acetaminophen (Tylenol 650 Mg Supp) 650 mg ND Q6 PRN PRN Reason: Fever >100.4 F Last Admin: 10/31/17 16:06 Dose: 650 mg Hydromorphone HCl (Dilaudid) 1 mg IVP Q4 PRN PRN Reason: Pain, severe (8-10) Last Admin: 10/31/17 16:15 Dose: 1 mg Piperacillin Sod/Tazobactam (Sod 3.375 gm/ Sodium Chloride) 100 mls @ 100 mls/ hr IVPB Q6 ANTIONE PRN Reason: Protocol Last Admin: 10/31/17 15:12 Dose: 100 mls/hr Potassium Chloride/Dextrose/Sod Cl (Potassium Chl 20 Meq In D5-1/2ns) 1,000 mls @ 125 mls/hr IV .Q8H ANTIONE Stop: 11/01/17 09:19 Last Admin: 10/31/17 10:48 Dose: 125 mls/hr Metronidazole (Flagyl 500mg/100ml Ns) 100 mls @ 100 mls/hr IVPB Q8 ANTIONE PRN Reason: Protocol Morphine Sulfate (Morphine) 4 mg IVP Q4 PRN PRN Reason: Pain, moderate (4-7) Last Admin: 10/30/17 08:05 Dose: 4 mg Ondansetron HCl (Zofran Inj) 4 mg IVP Q4 PRN PRN Reason: Nausea/Vomiting Pantoprazole Sodium (Protonix Inj) 40 mg IVP DAILY [facility] Last Admin: 10/31/17 10:47 Dose: 40 mg Zolpidem Tartrate (Ambien) 5 mg PO HS PRN PRN Reason: Insomnia Stop: 11/03/17 11:00 Last Admin: 10/30/17 22:27 Dose: 5 mg - Labs Labs: 10/31/17 05:50 10/31/17 05:50 PT 13.8 Seconds (9.8-13.1) H 10/29/17 21:00 INR 1.2 10/29/17 21:00 APTT 30.6 Seconds (25.6-37.1) 10/29/17 21:00
[2017-10-31] MEDS: metroNIDAZOLE 500mg/100ml NS 100 ML IVPB SCH (18:59)
[2017-11-01] MEDS: metroNIDAZOLE 500mg/100ml NS 100 ML IVPB SCH ×3 (00:18→20:09)
[2017-11-01] MEDS: Potassium Ch 20mEq in D5-1/2NS 1,000 ML IV SCH ×3 (01:40→20:10)
[2017-11-01] MEDS: Piperacillin/Tazobact 3.375 GM in Sodium Chloride 0.9% 100 ML IVPB SCH ×4 (04:39→22:13)
[2017-11-01 06:16] LABS: BASO % 0.2 % (0.0-2.0); EOS # 0.1 K/uL (0.0-0.7); EOS % 0.7 % (0.0-4.0); HEMOGLOBIN 10.8 g/dL (12.0-18.0); LYMPH # 0.5 K/uL (1.0-4.3); LYMPH % 5.2 % (20.0-40.0); MEAN CELL VOLUME 88.3 fl (80.0-94.0); MEAN CORPUSCULAR HEMOGLOBIN 29.8 pg (27.0-31.0); MEAN CORPUSCULAR HGB CONC 33.8 g/dL (33.0-37.0); MEAN PLATELET VOLUME 6.7 fl (7.2-11.7); MONO # 0.6 K/uL (0.0-0.8); MONO % 6.3 % (0.0-10.0); NEUT # 8.2 K/uL (1.8-7.0); NEUT % 87.6 % (50.0-75.0); NRBC % 0.1 % (0.0-0.0); RBC 3.64 Mil/uL (4.40-5.90); RED CELL DISTRIBUTION WIDTH 13.7 % (11.5-14.5); WHITE BLOOD COUNT 9.4 K/uL (4.8-10.8)
[2017-11-01 06:37] LABS: ALT/SGPT 30 U/L (21-72); AST/SGOT 27 U/L (17-59); BLOOD UREA NITROGEN 13 mg/dl (9-20); CALCIUM 8.6 mg/dL (8.4-10.2); GFR NON-AFRICAN AMERICAN > 60
--- NOTE | 2017-11-01 11:15 | CP.PCM.PN ---
Subjective - Date & Time of Evaluation Date of Evaluation: 11/01/17 Time of Evaluation: 11:13 - Subjective Subjective: Surgery: Dr. Rivero Pt seen and examined. Pt continues to have abd pain and feels bloated. He denies N/V. He did have small BM this morning, he did notice small amount of dark blood. Occassionally pt has SOB 2/2 pain. Objective - Vital Signs/Intake and Output Vital Signs (last 24 hours): Temp Pulse Resp BP Pulse Ox 100.3 F H 84 20 126/65 94 L 11/01/17 10:36 11/01/17 08:30 11/01/17 08:30 11/01/17 08:30 11/01/17 08:30 - Medications Medications: Current Medications Acetaminophen (Tylenol 650 Mg Supp) 650 mg OR Q6 PRN PRN Reason: Fever >100.4 F Last Admin: 10/31/17 23:21 Dose: 650 mg Hydromorphone HCl (Dilaudid) 1 mg IVP Q4 PRN PRN Reason: Pain, severe (8-10) Last Admin: 11/01/17 08:57 Dose: 1 mg Piperacillin Sod/Tazobactam (Sod 3.375 gm/ Sodium Chloride) 100 mls @ 100 mls/ hr IVPB Q6 ANTIONE PRN Reason: Protocol Last Admin: 11/01/17 09:00 Dose: 100 mls/hr Metronidazole (Flagyl 500mg/100ml Ns) 100 mls @ 100 mls/hr IVPB Q8 ANTIONE PRN Reason: Protocol Last Admin: 11/01/17 00:18 Dose: 100 mls/hr Morphine Sulfate (Morphine) 4 mg IVP Q4 PRN PRN Reason: Pain, moderate (4-7) Last Admin: 10/30/17 08:05 Dose: 4 mg Ondansetron HCl (Zofran Inj) 4 mg IVP Q4 PRN PRN Reason: Nausea/Vomiting Pantoprazole Sodium (Protonix Inj) 40 mg IVP DAILY [facility] Last Admin: 11/01/17 08:56 Dose: 40 mg Zolpidem Tartrate (Ambien) 5 mg PO HS PRN PRN Reason: Insomnia Stop: 11/03/17 11:00 Last Admin: 10/30/17 22:27 Dose: 5 mg - Labs Labs: 11/01/17 05:30 09/01/18 05:30 PT 13.8 Seconds (9.8-13.1) H 10/29/17 21:00 INR 1.2 10/29/17 21:00 APTT 30.6 Seconds (25.6-37.1) 10/29/17 21:00 - Constitutional Appears: Non-toxic, No Acute Distress - Head Exam Head Exam: ATRAUMATIC, NORMOCEPHALIC - Eye Exam Eye Exam: EOMI - ENT Exam ENT Exam: Mucous Membranes Moist - Neck Exam Neck Exam: Full ROM - Respiratory Exam Respiratory Exam: NORMAL BREATHING PATTERN. absent: Accessory Muscle Use, Respiratory Distress - GI/Abdominal Exam GI & Abdominal Exam: Distended, Soft, Tenderness (B/L lower quadrants), Rebound. absent: Firm, Guarding, Rigid - Extremities Exam Extremities Exam: absent: Calf Tenderness, Pedal Edema - Neurological Exam Neurological Exam: Alert, Awake, Oriented x3 - Psychiatric Exam Psychiatric exam: Normal Affect, Normal Mood - Skin Skin Exam: Dry, Normal Color, Warm Assessment and Plan - Assessment and Plan (Free Text) Assessment: 61M w. diverticulitis -Strict NPO -IVF -abx -pain meds -serial abx exams -will f/u on AXR and CXR -will continue to follow closely -d/w attending Zemaitis PGY4
--- NOTE | 2017-11-01 13:07 | RAD ---
Date of service: 11/01/2017 HISTORY: distension/pain COMPARISON: No prior. FINDINGS: BOWEL: Normal. No obstruction. No free air. BONES: Normal. OTHER FINDINGS: None. IMPRESSION: No active disease.
--- NOTE | 2017-11-01 13:39 | CP.PCM.PN ---
Subjective - Date & Time of Evaluation Date of Evaluation: 11/01/17 Time of Evaluation: 11:00 - Subjective Subjective: pt seen and examined at bedside. nad. no fever. cont to be bloated, small bm this am. Objective - Vital Signs/Intake and Output Vital Signs (last 24 hours): Temp Pulse Resp BP Pulse Ox 100.3 F H 84 20 126/65 94 L 11/01/17 10:36 11/01/17 08:30 11/01/17 08:30 11/01/17 08:30 11/01/17 08:30 - Medications Medications: Current Medications Acetaminophen (Tylenol 650 Mg Supp) 650 mg [place] Q6 PRN PRN Reason: Fever >100.4 F Last Admin: 10/31/17 23:21 Dose: 650 mg Hydromorphone HCl (Dilaudid) 1 mg IVP Q4 PRN PRN Reason: Pain, severe (8-10) Last Admin: 11/01/17 12:46 Dose: 1 mg Piperacillin Sod/Tazobactam (Sod 3.375 gm/ Sodium Chloride) 100 mls @ 100 mls/ hr IVPB Q6 ANTIONE PRN Reason: Protocol Last Admin: 11/01/17 09:00 Dose: 100 mls/hr Metronidazole (Flagyl 500mg/100ml Ns) 100 mls @ 100 mls/hr IVPB Q8 ANTIONE PRN Reason: Protocol Last Admin: 11/01/17 12:43 Dose: 100 mls/hr Potassium Chloride/Dextrose/Sod Cl (Potassium Chl 20 Meq In D5-1/2ns) 1,000 mls @ 125 mls/hr IV .Q8H [facility] Stop: 11/02/17 11:44 Morphine Sulfate (Morphine) 4 mg IVP Q4 PRN PRN Reason: Pain, moderate (4-7) Last Admin: 10/30/17 08:05 Dose: 4 mg Ondansetron HCl (Zofran Inj) 4 mg IVP Q4 PRN PRN Reason: Nausea/Vomiting Pantoprazole Sodium (Protonix Inj) 40 mg IVP DAILY [facility] Last Admin: 11/01/17 08:56 Dose: 40 mg Zolpidem Tartrate (Ambien) 5 mg PO HS PRN PRN Reason: Insomnia Stop: 11/03/17 11:00 Last Admin: 10/30/17 22:27 Dose: 5 mg - Labs Labs: 11/01/17 05:30 11/01/17 05:30 PT 13.8 Seconds (9.8-13.1) H 10/29/17 21:00 INR 1.2 10/29/17 21:00 APTT 30.6 Seconds (25.6-37.1) 10/29/17 21:00 - Head Exam Head Exam: NORMAL INSPECTION - Eye Exam Eye Exam: Normal appearance, PERRL Pupil Exam: NORMAL ACCOMODATION - ENT Exam ENT Exam: Mucous Membranes Moist - Neck Exam Neck Exam: Normal Inspection - Respiratory Exam Respiratory Exam: Clear to Ausculation Bilateral - Cardiovascular Exam Cardiovascular Exam: REGULAR RHYTHM, +S1, +S2 - GI/Abdominal Exam GI & Abdominal Exam: Distended, Hypoactive Bowel Sounds - Extremities Exam Extremities Exam: Full ROM, Normal Inspection - Neurological Exam Neurological Exam: Alert, Awake, Oriented x3 Assessment and Plan - Assessment and Plan (Free Text) Assessment: Diverticulitis with perf Plan: cont npo pain management ID consult appreciated, added flagyl to zosyn cont to monitor iVF
[2017-11-01] MEDS ORDERED: Chlorhexidine Gluconate 1 APPL/PKT TP ONE (18:17)
[2017-11-02] MEDS: Piperacillin/Tazobact 3.375 GM in Sodium Chloride 0.9% 100 ML IVPB SCH ×4 (03:11→22:00)
[2017-11-02] MEDS: Potassium Ch 20mEq in D5-1/2NS 1,000 ML IV SCH ×2 (04:00→05:29)
[2017-11-02] MEDS: metroNIDAZOLE 500mg/100ml NS 100 ML IVPB SCH ×3 (05:30→20:41)
--- NOTE | 2017-11-02 07:58 | CP.PCM.PN ---
Subjective - Date & Time of Evaluation Date of Evaluation: 11/02/17 Time of Evaluation: 07:56 - Subjective Subjective: Surgery: Dr. Rivero Pt seen and examined. Resting comfortably in bed. Pain significantly improved. Bloating resolved. No N/V. Objective - Vital Signs/Intake and Output Vital Signs (last 24 hours): Temp Pulse Resp BP Pulse Ox 98.7 F 71 19 109/63 96 11/02/17 00:36 11/02/17 00:36 11/02/17 00:36 11/02/17 00:36 11/02/17 00:36 - Medications Medications: Current Medications Acetaminophen (Tylenol 650 Mg Supp) 650 mg [place] Q6 PRN PRN Reason: Fever >100.4 F Last Admin: 11/01/17 18:17 Dose: 650 mg Hydromorphone HCl (Dilaudid) 1 mg IVP Q4 PRN PRN Reason: Pain, severe (8-10) Last Admin: 11/02/17 02:15 Dose: 1 mg Piperacillin Sod/Tazobactam (Sod 3.375 gm/ Sodium Chloride) 100 mls @ 100 mls/ hr IVPB Q6 [facility] PRN Reason: Protocol Last Admin: 11/02/17 03:11 Dose: 100 mls/hr Potassium Chloride/Dextrose/Sod Cl (Potassium Chl 20 Meq In D5-1/2ns) 1,000 mls @ 125 mls/hr IV .Q8H [facility] Stop: 11/02/17 11:44 Last Admin: 11/02/17 05:29 Dose: 125 mls/hr Metronidazole (Flagyl 500mg/100ml Ns) 100 mls @ 100 mls/hr IVPB Q8H [facility] PRN Reason: Protocol Last Admin: 11/02/17 05:30 Dose: 100 mls/hr Morphine Sulfate (Morphine) 4 mg IVP Q4 PRN PRN Reason: Pain, moderate (4-7) Last Admin: 10/30/17 08:05 Dose: 4 mg Ondansetron HCl (Zofran Inj) 4 mg IVP Q4 PRN PRN Reason: Nausea/Vomiting Pantoprazole Sodium (Protonix Inj) 40 mg IVP DAILY [facility] Last Admin: 11/01/17 08:56 Dose: 40 mg Zolpidem Tartrate (Ambien) 5 mg PO HS PRN PRN Reason: Insomnia Stop: 11/03/17 11:00 Last Admin: 11/02/17 03:07 Dose: 5 mg - Labs Labs: 11/01/17 05:30 11/01/17 05:30 PT 13.8 Seconds (9.8-13.1) H 10/29/17 21:00 INR 1.2 10/29/17 21:00 APTT 30.6 Seconds (25.6-37.1) 10/29/17 21:00 - Constitutional Appears: Non-toxic, No Acute Distress - Head Exam Head Exam: ATRAUMATIC, NORMOCEPHALIC - Eye Exam Eye Exam: EOMI - ENT Exam ENT Exam: Mucous Membranes Moist - Neck Exam Neck Exam: Full ROM - Respiratory Exam Respiratory Exam: NORMAL BREATHING PATTERN. absent: Accessory Muscle Use, Respiratory Distress - GI/Abdominal Exam GI & Abdominal Exam: Distended, Soft, Tenderness (mild lower quadrants). absent : Firm, Guarding, Rigid, Rebound - Extremities Exam Extremities Exam: absent: Calf Tenderness, Pedal Edema - Neurological Exam Neurological Exam: Alert, Awake, Oriented x3 Assessment and Plan - Assessment and Plan (Free Text) Assessment: 61M w. diverticulitis, improving -NPO -IVF -abx -pain meds -f/u AM labs, if wbc WNL, will consider starting clear liquids -c/w serial abd exams -d/w attending Zemaitis PGY4
[2017-11-02 08:18] LABS: HEMOGLOBIN 10.2 g/dL (12.0-18.0); MEAN CELL VOLUME 87.8 fl (80.0-94.0); MEAN CORPUSCULAR HEMOGLOBIN 30.3 pg (27.0-31.0); MEAN CORPUSCULAR HGB CONC 34.5 g/dL (33.0-37.0); RBC 3.37 Mil/uL (4.40-5.90); WHITE BLOOD COUNT 8.5 K/uL (4.8-10.8)
[2017-11-02 08:29] LABS: BLOOD UREA NITROGEN 11 mg/dl (9-20); CALCIUM 8.2 mg/dL (8.4-10.2); GFR NON-AFRICAN AMERICAN > 60
--- NOTE | 2017-11-02 09:10 | RAD ---
Date of service: 11/01/2017 PROCEDURE: CHEST RADIOGRAPH, 1 VIEW HISTORY: SOB COMPARISON: None available. FINDINGS: LUNGS: Nodular density in the left mid lung nodule. Recommend correlation with CT scan. PLEURA: No pneumothorax or pleural fluid seen. CARDIOVASCULAR: Normal. OSSEOUS STRUCTURES: No significant abnormalities. VISUALIZED UPPER ABDOMEN: Normal. OTHER FINDINGS: None. IMPRESSION: Nodular density in the left mid lung nodule. Recommend correlation with CT scan.
[2017-11-02] MEDS ORDERED: Potassium Ch 20mEq in D5-1/2NS 1,000 ML IV SCH (10:29)
--- NOTE | 2017-11-02 12:53 | CP.PCM.PN ---
Subjective - Date & Time of Evaluation Date of Evaluation: 11/02/17 Time of Evaluation: 11:00 - Subjective Subjective: pt seen and examined at bedside. on liquid diet. c/o irritation in left eye Objective - Vital Signs/Intake and Output Vital Signs (last 24 hours): Temp Pulse Resp BP Pulse Ox 97.9 F 78 18 130/80 97 11/02/17 08:05 11/02/17 08:05 11/02/17 08:05 11/02/17 08:05 11/02/17 08:05 - Medications Medications: Current Medications Acetaminophen (Tylenol 650 Mg Supp) 650 mg NE Q6 PRN PRN Reason: Fever >100.4 F Last Admin: 11/01/17 18:17 Dose: 650 mg Hydromorphone HCl (Dilaudid) 1 mg IVP Q4 PRN PRN Reason: Pain, severe (8-10) Last Admin: 11/02/17 08:37 Dose: 1 mg Piperacillin Sod/Tazobactam (Sod 3.375 gm/ Sodium Chloride) 100 mls @ 100 mls/ hr IVPB Q6 [facility] PRN Reason: Protocol Last Admin: 11/02/17 09:54 Dose: 100 mls/hr Metronidazole (Flagyl 500mg/100ml Ns) 100 mls @ 100 mls/hr IVPB Q8H [facility] PRN Reason: Protocol Last Admin: 11/02/17 12:00 Dose: 100 mls/hr Morphine Sulfate (Morphine) 4 mg IVP Q4 PRN PRN Reason: Pain, moderate (4-7) Last Admin: 10/30/17 08:05 Dose: 4 mg Ondansetron HCl (Zofran Inj) 4 mg IVP Q4 PRN PRN Reason: Nausea/Vomiting Pantoprazole Sodium (Protonix Inj) 40 mg IVP DAILY [facility] Last Admin: 11/02/17 08:39 Dose: 40 mg Zolpidem Tartrate (Ambien) 5 mg PO HS PRN PRN Reason: Insomnia Stop: 11/03/17 11:00 Last Admin: 11/02/17 03:07 Dose: 5 mg - Labs Labs: 11/02/17 07:50 11/02/17 07:50 PT 13.8 Seconds (9.8-13.1) H 10/29/17 21:00 INR 1.2 10/29/17 21:00 APTT 30.6 Seconds (25.6-37.1) 10/29/17 21:00 - Constitutional Appears: Non-toxic - Head Exam Head Exam: NORMAL INSPECTION - Eye Exam Eye Exam: Normal appearance Pupil Exam: NORMAL ACCOMODATION - ENT Exam ENT Exam: Mucous Membranes Moist - Neck Exam Neck Exam: Full ROM - Respiratory Exam Respiratory Exam: Clear to Ausculation Bilateral, NORMAL BREATHING PATTERN - Cardiovascular Exam Cardiovascular Exam: REGULAR RHYTHM, +S1, +S2 - GI/Abdominal Exam GI & Abdominal Exam: Soft, Normal Bowel Sounds - Extremities Exam Extremities Exam: Full ROM - Neurological Exam Neurological Exam: Alert Assessment and Plan - Assessment and Plan (Free Text) Assessment: 1. diverticulitis with perf 2.lung nodule Plan: diverticulitis with perforation cont diet advance per surgery pain control cont iv abx lung nodule ct chest ordered eye irritation warm compresses
[2017-11-02] MEDS ORDERED: Chlorhexidine Gluconate 1 APPL/PKT TP ONE (15:27)
[2017-11-02] MEDS: Potassium Chl 40 mEq in D5-1/2 1,000 ML IV SCH ×2 (18:24→23:51)
[2017-11-03] MEDS: Piperacillin/Tazobact 3.375 GM in Sodium Chloride 0.9% 100 ML IVPB SCH ×4 (03:23→22:52)
[2017-11-03] MEDS: metroNIDAZOLE 500mg/100ml NS 100 ML IVPB SCH ×3 (04:59→20:19)
[2017-11-03] MEDS: Potassium Chl 40 mEq in D5-1/2 1,000 ML IV SCH (07:00)
[2017-11-03] MEDS ORDERED: Chlorhexidine Gluconate 1 APPL/PKT TP ONE (07:51)
[2017-11-03 08:28] LABS: BLOOD UREA NITROGEN 8 mg/dl (9-20); CALCIUM 8.2 mg/dL (8.4-10.2); GFR NON-AFRICAN AMERICAN > 60
[2017-11-03 08:48] LABS: BASO % 0.1 % (0.0-2.0); EOS # 0.1 K/uL (0.0-0.7); EOS % 0.8 % (0.0-4.0); HEMOGLOBIN 10.6 g/dL (12.0-18.0); LYMPH # 0.5 K/uL (1.0-4.3); LYMPH % 3.5 % (20.0-40.0); MEAN CELL VOLUME 87.3 fl (80.0-94.0); MEAN CORPUSCULAR HEMOGLOBIN 30.2 pg (27.0-31.0); MEAN CORPUSCULAR HGB CONC 34.7 g/dL (33.0-37.0); MEAN PLATELET VOLUME 6.8 fl (7.2-11.7); MONO # 0.8 K/uL (0.0-0.8); MONO % 6.3 % (0.0-10.0); NEUT # 11.6 K/uL (1.8-7.0); NEUT % 89.3 % (50.0-75.0); NRBC % 0.1 % (0.0-0.0); PLATELET COUNT 252 K/uL (130-400); RBC 3.51 Mil/uL (4.40-5.90); RED CELL DISTRIBUTION WIDTH 13.6 % (11.5-14.5); WHITE BLOOD COUNT 12.9 K/uL (4.8-10.8)
[2017-11-03 09:19] LABS: BANDS 3 % (0-2); EOSINOPHIL 1 % (0-7); HYPOCHROMIC SLIGHT; LYMPHOCYTE 3 % (20-50); METAMYELOCYTE 1 % (0-0); MONOCYTE 8 % (0-10); NEUTROPHIL 83 % (42-75); PLATELET ESTIMATE NORMAL (NORMAL); REACTIVE LYMPHOCYTES 1 % (0-0); TOTAL CELLS COUNTED 100
--- NOTE | 2017-11-03 09:40 | CP.PCM.PN ---
Subjective - Date & Time of Evaluation Date of Evaluation: 11/03/17 Time of Evaluation: 09:33 - Subjective Subjective: General Surgery Pt seen and examined this AM. He reports feeling like he is more bloated today. (+) flatus this AM, LBM: 2days ago. On clear liquid diet with minimal PO intake. He also reports having difficulty breathing because of his abdominal distention but it is worse at night. Right now he feels okay because he had pain medicine he says. Pt continues to have fevers and recently had a CT of his chest which showed pleural effusions and atelectasis. Labs and vitals noted. K corrected from yesterday. PE Gen: Pt laying in bed in NAD Skin: warm and dry Cardio: s1s2 RRR Lungs: CTA bilaterally, (-) tachypnea, (-) wheezing, speaking in full sentences. Abd: Distended, (+) tenderness at RLQ and at midline. (-) LLQ tenderness, (-) rebound Extr: (-) calf tenderness A/P Diverticulitis with micro perf Repeat CT scan of abd with PO contrast tomorrow to r/o abscess Monitor labs Monitor vitals Serial abdominal exams On clear liquids, will renew IVF as pt is not consuming much clears. Pain meds prn as ordered Objective - Vital Signs/Intake and Output Vital Signs (last 24 hours): Temp Pulse Resp BP Pulse Ox 100.7 F H 78 20 109/62 98 11/03/17 08:18 11/03/17 08:18 11/03/17 08:18 11/03/17 08:18 11/03/17 08:18 - Medications Medications: Current Medications Acetaminophen (Tylenol 650 Mg Supp) 650 mg ME Q6 PRN PRN Reason: Fever >100.4 F Last Admin: 11/03/17 07:52 Dose: 650 mg Hydromorphone HCl (Dilaudid) 1 mg IVP Q4 PRN PRN Reason: Pain, severe (8-10) Last Admin: 11/03/17 07:51 Dose: 1 mg Piperacillin Sod/Tazobactam (Sod 3.375 gm/ Sodium Chloride) 100 mls @ 100 mls/ hr IVPB Q6 ANTIONE PRN Reason: Protocol Last Admin: 11/03/17 03:23 Dose: 100 mls/hr Metronidazole (Flagyl 500mg/100ml Ns) 100 mls @ 100 mls/hr IVPB Q8H [facility] PRN Reason: Protocol Last Admin: 11/03/17 04:59 Dose: 100 mls/hr Potassium Chloride/Dextrose/Sod Cl (Potassium Chl 40 Meq In D5-1/2ns) 1,000 mls @ 125 mls/hr IV .Q8H [facility] Stop: 11/03/17 15:06 Last Admin: 11/03/17 07:00 Dose: 125 mls/hr Vancomycin HCl 1 gm/ Sodium (Chloride) 250 mls @ 166.667 mls/hr IVPB Q12 [facility] PRN Reason: Protocol Last Admin: 11/03/17 08:49 Dose: 166.667 mls/hr Ondansetron HCl (Zofran Inj) 4 mg IVP Q4 PRN PRN Reason: Nausea/Vomiting Last Admin: 11/03/17 07:57 Dose: 4 mg Pantoprazole Sodium (Protonix Inj) 40 mg IVP DAILY [facility] Last Admin: 11/03/17 08:50 Dose: 40 mg Zolpidem Tartrate (Ambien) 5 mg PO HS PRN PRN Reason: Insomnia Stop: 11/03/17 11:00 Last Admin: 11/02/17 03:07 Dose: 5 mg - Labs Labs: 11/03/17 08:30 11/03/17 07:45 PT 13.8 Seconds (9.8-13.1) H 10/29/17 21:00 INR 1.2 10/29/17 21:00 APTT 30.6 Seconds (25.6-37.1) 10/29/17 21:00
--- NOTE | 2017-11-03 10:04 | CP.PCM.PN ---
Subjective - Date & Time of Evaluation Date of Evaluation: 11/03/17 Time of Evaluation: 10:04 - Subjective Subjective: stable at present febrile no nvd co abd bloating/full sensation bw noted surgical consilts apprixiated Objective - Vital Signs/Intake and Output Vital Signs (last 24 hours): Temp Pulse Resp BP Pulse Ox 100.7 F H 78 20 109/62 98 11/03/17 08:18 11/03/17 08:18 11/03/17 08:18 11/03/17 08:18 11/03/17 08:18 - Medications Medications: Current Medications Acetaminophen (Tylenol 325mg Tab) 650 mg PO Q6 PRN PRN Reason: Fever >100.4 F Hydromorphone HCl (Dilaudid) 1 mg IVP Q4 PRN PRN Reason: Pain, severe (8-10) Last Admin: 11/03/17 07:51 Dose: 1 mg Piperacillin Sod/Tazobactam (Sod 3.375 gm/ Sodium Chloride) 100 mls @ 100 mls/ hr IVPB Q6 ANTIONE PRN Reason: Protocol Last Admin: 11/03/17 03:23 Dose: 100 mls/hr Metronidazole (Flagyl 500mg/100ml Ns) 100 mls @ 100 mls/hr IVPB Q8H [facility] PRN Reason: Protocol Last Admin: 11/03/17 04:59 Dose: 100 mls/hr Potassium Chloride/Dextrose/Sod Cl (Potassium Chl 40 Meq In D5-1/2ns) 1,000 mls @ 125 mls/hr IV .Q8H [facility] Stop: 11/03/17 15:06 Last Admin: 11/03/17 07:00 Dose: 125 mls/hr Vancomycin HCl 1 gm/ Sodium (Chloride) 250 mls @ 166.667 mls/hr IVPB Q12 [facility]E PRN Reason: Protocol Last Admin: 11/03/17 08:49 Dose: 166.667 mls/hr Lactated Ringer's (Lactated Ringer's) 1,000 mls @ 125 mls/hr IV .Q8H [facility] Stop: 11/05/17 10:01 Ondansetron HCl (Zofran Inj) 4 mg IVP Q4 PRN PRN Reason: Nausea/Vomiting Last Admin: 11/03/17 07:57 Dose: 4 mg Pantoprazole Sodium (Protonix Inj) 40 mg IVP DAILY [facility] Last Admin: 11/03/17 08:50 Dose: 40 mg Zolpidem Tartrate (Ambien) 5 mg PO HS PRN PRN Reason: Insomnia Stop: 11/03/17 11:00 Last Admin: 11/02/17 03:07 Dose: 5 mg - Labs Labs: 11/03/17 08:30 11/03/17 07:45 PT 13.8 Seconds (9.8-13.1) H 10/29/17 21:00 INR 1.2 10/29/17 21:00 APTT 30.6 Seconds (25.6-37.1) 10/29/17 21:00 Assessment and Plan (1) Diverticulitis of colon with perforation Assessment & Plan: surgery id consult aida gerber Status: Acute (2) DVT prophylaxis Assessment & Plan: scd and ae hose hold lovenox r/t intestinal perf Status: Acute
[2017-11-03] MEDS: Lactated Ringer's 1,000 ML IV SCH ×3 (10:14→20:21)
--- NOTE | 2017-11-03 14:17 | CT ---
Date of service: 11/02/2017 PROCEDURE: CT Chest without contrast HISTORY: nodule on cxr COMPARISON: None available. TECHNIQUE: Contiguous axial images were obtained through the chest without intravenous contrast enhancement. Sagittal and coronal reconstructions were performed. Radiation dose (DLP): 587 mGy-cm. This CT exam was performed using one or more of the following dose reduction techniques: Automated exposure control, adjustment of the mA and/or kV according to patient size, and/or use of iterative reconstruction technique. FINDINGS: LUNGS: There is evidence of mild scattered areas of interstitial change and mild interlobular thickening. Scattered areas of mild scarring are also appreciated. Mild subsegmental atelectasis is seen posteriorly at the right lung base associated with a small right pleural effusion. Minor effusion is seen on the left. Mild peribronchial thickening is noted. There is a faint tiny subpleural subtle ground-glass nodule seen in the left upper lobe on axial image 46 series 3 measuring 3-4 millimeters. This subtle finding is more than likely not sales utility representative of the previously noted area of nodularity on the recent portable chest radiograph. No appreciable nodular density is seen in this region on the CT scan. MEDIASTINUM: Unremarkable thoracic aorta. No aneurysm. Heart is normal in size. Coronary artery calcification is suspected although limited by technique. No significant pericardial effusion is noted. Main pulmonary artery unremarkable. No vascular congestion. A few small scattered shotty mediastinal lymph nodes are identified. No hilar adenopathy or subcarinal adenopathy is seen. PLEURA: Small right pleural effusion and smaller left effusion. Mild compressive atelectasis posteriorly at the right lung base. BONES: No fracture. No destructive lesion. Degenerative changes are seen in the spine. UPPER ABDOMEN: Grossly unremarkable. OTHER FINDINGS: Esophagus shows some mild thickening distally. This may reflect mild esophagitis. Visualized upper abdomen is unremarkable except for some minor ascites. IMPRESSION: No appreciable nodule is seen to correspond with the reported area noted on the recent portable chest radiograph. A very tiny subtle subpleural ground-glass nodule in the left upper lobe is incidentally noted. No further imaging workup would be suggested in a low risk patient of this age. Small right pleural effusion and compressive atelectasis at the right lung base. Smaller left effusion. Mild nonspecific interstitial change and peribronchial thickening. This may suggest an infectious and/or inflammatory process and should be correlated clinically. Follow-up PA and lateral chest x-ray is suggested.
--- NOTE | 2017-11-03 16:08 | CP.PCM.PN ---
Subjective - Date & Time of Evaluation Date of Evaluation: 11/03/17 Time of Evaluation: 16:02 - Subjective Subjective: iI D NOTE PATIENT HAS POSITIVE CULTURE FOR GRAM POS COCCI IN CHAINS(STREP/ENTEROCOCCUS) ,HAD ORDERED I gm iv VANCOMYCIN IVPB Q12 H IN ADDITION WILL RE EVAULATE AFTER IDENTIFICATION/SENSITIVITY AVAILABLE HAS SMALL PERFORATION PREVIOSLY NOTED Objective - Vital Signs/Intake and Output Vital Signs (last 24 hours): Temp Pulse Resp BP Pulse Ox 98.7 F 78 20 109/62 98 11/03/17 10:22 11/03/17 08:18 11/03/17 08:18 11/03/17 08:18 11/03/17 08:18 - Medications Medications: Current Medications Acetaminophen (Tylenol 325mg Tab) 650 mg PO Q6 PRN PRN Reason: Fever >100.4 F Hydromorphone HCl (Dilaudid) 1 mg IVP Q4 PRN PRN Reason: Pain, severe (8-10) Last Admin: 11/03/17 12:38 Dose: 1 mg Piperacillin Sod/Tazobactam (Sod 3.375 gm/ Sodium Chloride) 100 mls @ 100 mls/ hr IVPB Q6 ANTIONE PRN Reason: Protocol Last Admin: 11/03/17 10:22 Dose: 100 mls/hr Metronidazole (Flagyl 500mg/100ml Ns) 100 mls @ 100 mls/hr IVPB Q8H [facility] PRN Reason: Protocol Last Admin: 11/03/17 12:32 Dose: 100 mls/hr Vancomycin HCl 1 gm/ Sodium (Chloride) 250 mls @ 166.667 mls/hr IVPB Q12 ANTIONE PRN Reason: Protocol Last Admin: 11/03/17 08:49 Dose: 166.667 mls/hr Lactated Ringer's (Lactated Ringer's) 1,000 mls @ 125 mls/hr IV .Q8H [facility] Stop: 11/05/17 10:01 Last Admin: 11/03/17 10:14 Dose: Not Given Ondansetron HCl (Zofran Inj) 4 mg IVP Q4 PRN PRN Reason: Nausea/Vomiting Last Admin: 11/03/17 07:57 Dose: 4 mg Pantoprazole Sodium (Protonix Inj) 40 mg IVP DAILY [facility] Last Admin: 11/03/17 08:50 Dose: 40 mg - Labs Labs: 11/03/17 08:30 11/03/17 07:45 PT 13.8 Seconds (9.8-13.1) H 10/29/17 21:00 INR 1.2 10/29/17 21:00 APTT 30.6 Seconds (25.6-37.1) 10/29/17 21:00
[2017-11-04] MEDS: Lactated Ringer's 1,000 ML IV SCH ×3 (02:00→18:12)
[2017-11-04] MEDS: Piperacillin/Tazobact 3.375 GM in Sodium Chloride 0.9% 100 ML IVPB SCH ×3 (04:23→16:08)
[2017-11-04] MEDS: metroNIDAZOLE 500mg/100ml NS 100 ML IVPB SCH ×3 (06:00→21:25)
[2017-11-04 07:14] LABS: HEMOGLOBIN 10.3 g/dL (12.0-18.0); MEAN CELL VOLUME 88.5 fl (80.0-94.0); MEAN CORPUSCULAR HEMOGLOBIN 29.8 pg (27.0-31.0); MEAN CORPUSCULAR HGB CONC 33.7 g/dL (33.0-37.0); RBC 3.47 Mil/uL (4.40-5.90)
[2017-11-04 07:19] LABS: BLOOD UREA NITROGEN 8 mg/dl (9-20); CALCIUM 8.1 mg/dL (8.4-10.2); GFR NON-AFRICAN AMERICAN > 60
[2017-11-04] MEDS ORDERED: Iohexol 240 (50 ml) PO ONE (08:05)
--- NOTE | 2017-11-04 09:21 | CP.PCM.PN ---
<Tj Jacob - Last Filed: 11/04/17 09:19> Subjective - Date & Time of Evaluation Date of Evaluation: 11/04/17 Time of Evaluation: 07:00 - Subjective Subjective: General Surgery Pt seen and examined. No acute events overnight. Feeling better. Has not had any liquids. Small BM with scant blood this AM. No N/V/D. Awaiting CT scan. Objective - Vital Signs/Intake and Output Vital Signs (last 24 hours): Temp Pulse Resp BP Pulse Ox 98.6 F 67 20 128/72 98 11/04/17 08:01 11/04/17 08:01 11/04/17 08:01 11/04/17 08:01 11/04/17 08:01 - Medications Medications: Current Medications Acetaminophen (Tylenol 325mg Tab) 650 mg PO Q6 PRN PRN Reason: Fever >100.4 F Hydromorphone HCl (Dilaudid) 1 mg IVP Q4 PRN PRN Reason: Pain, severe (8-10) Last Admin: 11/04/17 07:28 Dose: 1 mg Piperacillin Sod/Tazobactam (Sod 3.375 gm/ Sodium Chloride) 100 mls @ 100 mls/ hr IVPB Q6 ANTIONE PRN Reason: Protocol Last Admin: 11/04/17 09:01 Dose: 100 mls/hr Metronidazole (Flagyl 500mg/100ml Ns) 100 mls @ 100 mls/hr IVPB Q8H [facility] PRN Reason: Protocol Last Admin: 11/04/17 06:00 Dose: 100 mls/hr Vancomycin HCl 1 gm/ Sodium (Chloride) 250 mls @ 166.667 mls/hr IVPB Q12 [facility]E PRN Reason: Protocol Last Admin: 11/04/17 08:25 Dose: 166.667 mls/hr Lactated Ringer's (Lactated Ringer's) 1,000 mls @ 125 mls/hr IV .Q8H [facility] Stop: 11/05/17 10:01 Last Admin: 11/04/17 02:00 Dose: Not Given Potassium Chloride (Potassium Chloride 20 Meq/100 Ml) 100 mls @ 50 mls/hr IV Q2 [facility] Stop: 11/04/17 15:59 Ondansetron HCl (Zofran Inj) 4 mg IVP Q4 PRN PRN Reason: Nausea/Vomiting Last Admin: 11/03/17 21:57 Dose: 4 mg Pantoprazole Sodium (Protonix Inj) 40 mg IVP DAILY [facility] Last Admin: 11/04/17 08:26 Dose: 40 mg - Labs Labs: 11/04/17 06:45 11/04/17 06:45 PT 13.8 Seconds (9.8-13.1) H 10/29/17 21:00 INR 1.2 10/29/17 21:00 APTT 30.6 Seconds (25.6-37.1) 10/29/17 21:00 - Constitutional Appears: Non-toxic, No Acute Distress - Head Exam Head Exam: ATRAUMATIC, NORMOCEPHALIC - Eye Exam Eye Exam: EOMI. absent: Scleral icterus - Respiratory Exam Respiratory Exam: NORMAL BREATHING PATTERN. absent: Respiratory Distress - Cardiovascular Exam Cardiovascular Exam: RRR, +S1, +S2 - GI/Abdominal Exam GI & Abdominal Exam: Soft, Tenderness (Mild at the R inferior quadrant around the umbilicus). absent: Distended, Firm, Guarding, Rigid - Extremities Exam Extremities Exam: absent: Calf Tenderness, Pedal Edema - Back Exam Back Exam: absent: CVA tenderness (L), CVA tenderness (R) - Neurological Exam Neurological Exam: Alert, Awake, Oriented x3 - Skin Skin Exam: Dry, Warm Assessment and Plan - Assessment and Plan (Free Text) Assessment: 61M with diverticulitis Plan: F/U repeat CT scan of abd with PO contrast today to r/o abscess Serial abdominal exams On clear liquids diet but has not had any intake. Cont IVF. Pain meds PRN Cont abx Will D/W Dr. Kasandra Jacob PGY4 <Jay Slaughter - Last Filed: 11/04/17 11:41> Subjective - Date & Time of Evaluation Time of Evaluation: 10:30 - Subjective Subjective: Patient was seen and examined at the bedside. Agree with resident's note above. Objective - Vital Signs/Intake and Output Vital Signs (last 24 hours): Temp Pulse Resp BP Pulse Ox 98.6 F 67 20 128/72 98 11/04/17 08:01 11/04/17 08:01 11/04/17 08:01 11/04/17 08:01 11/04/17 08:01 - Medications Medications: Current Medications Acetaminophen (Tylenol 325mg Tab) 650 mg PO Q6 PRN PRN Reason: Fever >100.4 F Hydromorphone HCl (Dilaudid) 1 mg IVP Q4 PRN PRN Reason: Pain, severe (8-10) Last Admin: 11/04/17 07:28 Dose: 1 mg Metronidazole (Flagyl 500mg/100ml Ns) 100 mls @ 100 mls/hr IVPB Q8H [facility] PRN Reason: Protocol Last Admin: 11/04/17 06:00 Dose: 100 mls/hr Vancomycin HCl 1 gm/ Sodium (Chloride) 250 mls @ 166.667 mls/hr IVPB Q12 [facility] PRN Reason: Protocol Last Admin: 11/04/17 08:25 Dose: 166.667 mls/hr Lactated Ringer's (Lactated Ringer's) 1,000 mls @ 125 mls/hr IV .Q8H [facility] Stop: 11/05/17 10:01 Last Admin: 11/04/17 11:22 Dose: 125 mls/hr Potassium Chloride (Potassium Chloride 20 Meq/100 Ml) 100 mls @ 50 mls/hr IV Q2 [facility] Stop: 11/04/17 15:59 Last Admin: 11/04/17 11:23 Dose: 50 mls/hr Ondansetron HCl (Zofran Inj) 4 mg IVP Q4 PRN PRN Reason: Nausea/Vomiting Last Admin: 11/04/17 09:40 Dose: 4 mg Pantoprazole Sodium (Protonix Inj) 40 mg IVP DAILY [facility] Last Admin: 11/04/17 08:26 Dose: 40 mg - Labs Labs: 11/04/17 06:45 11/04/17 06:45 PT 13.8 Seconds (9.8-13.1) H 10/29/17 21:00 INR 1.2 10/29/17 21:00 APTT 30.6 Seconds (25.6-37.1) 10/29/17 21:00 Assessment and Plan - Assessment and Plan (Free Text) Plan: - Repeat labs in am - Will follow
--- NOTE | 2017-11-04 10:39 | CP.PCM.PN ---
Subjective - Date & Time of Evaluation Date of Evaluation: 11/04/17 Time of Evaluation: 10:38 - Subjective Subjective: pt doing well. no f/c, n/v/d. less tenderness in abd today. all specialists notes appriciated. less distention to abd Objective - Vital Signs/Intake and Output Vital Signs (last 24 hours): Temp Pulse Resp BP Pulse Ox 98.6 F 67 20 128/72 98 11/04/17 08:01 11/04/17 08:01 11/04/17 08:01 11/04/17 08:01 11/04/17 08:01 - Medications Medications: Current Medications Acetaminophen (Tylenol 325mg Tab) 650 mg PO Q6 PRN PRN Reason: Fever >100.4 F Hydromorphone HCl (Dilaudid) 1 mg IVP Q4 PRN PRN Reason: Pain, severe (8-10) Last Admin: 11/04/17 07:28 Dose: 1 mg Metronidazole (Flagyl 500mg/100ml Ns) 100 mls @ 100 mls/hr IVPB Q8H [facility] PRN Reason: Protocol Last Admin: 11/04/17 06:00 Dose: 100 mls/hr Vancomycin HCl 1 gm/ Sodium (Chloride) 250 mls @ 166.667 mls/hr IVPB Q12 [facility] PRN Reason: Protocol Last Admin: 11/04/17 08:25 Dose: 166.667 mls/hr Lactated Ringer's (Lactated Ringer's) 1,000 mls @ 125 mls/hr IV .Q8H [facility] Stop: 11/05/17 10:01 Last Admin: 11/04/17 02:00 Dose: Not Given Potassium Chloride (Potassium Chloride 20 Meq/100 Ml) 100 mls @ 50 mls/hr IV Q2 [facility] Stop: 11/04/17 15:59 Ondansetron HCl (Zofran Inj) 4 mg IVP Q4 PRN PRN Reason: Nausea/Vomiting Last Admin: 11/04/17 09:40 Dose: 4 mg Pantoprazole Sodium (Protonix Inj) 40 mg IVP DAILY [facility] Last Admin: 11/04/17 08:26 Dose: 40 mg - Labs Labs: 11/04/17 06:45 11/04/17 06:45 PT 13.8 Seconds (9.8-13.1) H 10/29/17 21:00 INR 1.2 10/29/17 21:00 APTT 30.6 Seconds (25.6-37.1) 10/29/17 21:00 - Constitutional Appears: Well, Non-toxic, No Acute Distress - Head Exam Head Exam: ATRAUMATIC, NORMAL INSPECTION, NORMOCEPHALIC - Eye Exam Eye Exam: EOMI, Normal appearance, PERRL Pupil Exam: NORMAL ACCOMODATION, PERRL - ENT Exam ENT Exam: Mucous Membranes Moist, Normal Exam - Neck Exam Neck Exam: Full ROM, Normal Inspection. absent: Lymphadenopathy - Respiratory Exam Respiratory Exam: Clear to Ausculation Bilateral, NORMAL BREATHING PATTERN - Cardiovascular Exam Cardiovascular Exam: REGULAR RHYTHM, +S1, +S2. absent: Murmur - GI/Abdominal Exam GI & Abdominal Exam: Soft, Tenderness, Normal Bowel Sounds Additional comments: mild tenderness rlq - Extremities Exam Extremities Exam: Full ROM, Normal Capillary Refill, Normal Inspection. absent : Joint Swelling, Pedal Edema - Back Exam Back Exam: NORMAL INSPECTION - Neurological Exam Neurological Exam: Alert, Awake, CN II-XII Intact, Normal Gait, Oriented x3 - Psychiatric Exam Psychiatric exam: Normal Affect, Normal Mood - Skin Skin Exam: Dry, Intact, Normal Color, Warm Assessment and Plan (1) Diverticulitis of colon with perforation Assessment & Plan: cont anbx, cont all consults repeat ct today Status: Acute (2) DVT prophylaxis Assessment & Plan: scd nad ae hose Status: Acute
[2017-11-04] MEDS: Potassium Chloride 20 mEq 100 ML IV SCH ×3 (11:23→18:12)
[2017-11-04] MEDS ORDERED: Piperacillin/Tazobact 3.375 GM in Sodium Chloride 0.9% 100 ML IVPB SCH (15:15)
--- NOTE | 2017-11-04 15:22 | CP.PCM.PN ---
Subjective - Date & Time of Evaluation Date of Evaluation: 11/04/17 Time of Evaluation: 15:15 - Subjective Subjective: I D NOTE ABDOMEN:HAS DISTENTION.TENDERNESS ,ESPECIALLY RLQ, WBC is STILL 12 DISCUSSED c SURGERY MAY SURGERY ,SOONER IF THERE IS IS NO IMPROVEMENT. CONTINUE 3 ANTIBIOTIC REGIMEN Objective - Vital Signs/Intake and Output Vital Signs (last 24 hours): Temp Pulse Resp BP Pulse Ox 98.6 F 67 20 128/72 98 11/04/17 08:01 11/04/17 08:01 11/04/17 08:01 11/04/17 08:01 11/04/17 08:01 - Medications Medications: Current Medications Acetaminophen (Tylenol 325mg Tab) 650 mg PO Q6 PRN PRN Reason: Fever >100.4 F Hydromorphone HCl (Dilaudid) 1 mg IVP Q4 PRN PRN Reason: Pain, severe (8-10) Last Admin: 11/04/17 13:17 Dose: 1 mg Metronidazole (Flagyl 500mg/100ml Ns) 100 mls @ 100 mls/hr IVPB Q8H [facility] PRN Reason: Protocol Last Admin: 11/04/17 13:20 Dose: 100 mls/hr Vancomycin HCl 1 gm/ Sodium (Chloride) 250 mls @ 166.667 mls/hr IVPB Q12 [facility] PRN Reason: Protocol Last Admin: 11/04/17 08:25 Dose: 166.667 mls/hr Lactated Ringer's (Lactated Ringer's) 1,000 mls @ 125 mls/hr IV .Q8H [facility] Stop: 11/05/17 10:01 Last Admin: 11/04/17 11:22 Dose: 125 mls/hr Potassium Chloride (Potassium Chloride 20 Meq/100 Ml) 100 mls @ 50 mls/hr IV Q2 [facility] Stop: 11/04/17 15:59 Last Admin: 11/04/17 11:23 Dose: 50 mls/hr Piperacillin Sod/Tazobactam (Sod 3.375 gm/ Sodium Chloride) 100 mls @ 100 mls/ hr IVPB Q8H [facility] PRN Reason: Protocol Ondansetron HCl (Zofran Inj) 4 mg IVP Q4 PRN PRN Reason: Nausea/Vomiting Last Admin: 11/04/17 09:40 Dose: 4 mg Pantoprazole Sodium (Protonix Inj) 40 mg IVP DAILY [facility] Last Admin: 11/04/17 08:26 Dose: 40 mg - Labs Labs: 11/04/17 06:45 11/04/17 06:45 PT 13.8 Seconds (9.8-13.1) H 10/29/17 21:00 INR 1.2 10/29/17 21:00 APTT 30.6 Seconds (25.6-37.1) 10/29/17 21:00
--- NOTE | 2017-11-04 16:09 | CT ---
PROCEDURE: CT Abdomen and Pelvis without IV contrast. HISTORY: r/o abscess COMPARISON: CT abdomen pelvis with contrast performed 10/29/17 TECHNIQUE: Contiguous axial images of the abdomen and pelvis. Oral contrast was administered. No IV contrast given. Coronal and Sagittal reformats generated and reviewed. Radiation dose: Total exam DLP = 868.00 mGy-cm. This CT exam was performed using one or more of the following dose reduction techniques: Automated exposure control, adjustment of the mA and/or kV according to patient size, and/or use of iterative reconstruction technique. FINDINGS: There is limited evaluation of the solid organs without the administration of IV contrast. LOWER THORAX: Small to moderate bilateral pleural effusions and compressive consolidations. Small hiatal hernia with evidence of gastroesophageal reflux. LIVER: Hypoattenuation of the liver compatible with hepatic steatosis. Small probable hepatic cyst. GALLBLADDER AND BILE DUCTS: Unremarkable unenhanced appearance. PANCREAS: Fatty atrophy. SPLEEN: Unremarkable unenhanced appearance. ADRENALS: Unremarkable unenhanced appearance. KIDNEYS AND URETERS: No hydronephrosis or obstructing renal calculus. BLADDER: The urinary bladder appears unremarkable. REPRODUCTIVE: Enlarged prostate gland. APPENDIX: The appendix appears within normal limits of caliber. BOWEL: The stomach is nondistended. Bowel loops appear within normal limits of caliber without evidence of obstruction. Mild mucosal thickening involving the sigmoid colon in region with numerous diverticula. Elongated gas collection adjacent to the sigmoid colon with associated phlegmonous changes. No definite drainable abscess identified. Small pelvic free fluid. PERITONEUM: See above. LYMPH NODES: No bulky lymphadenopathy identified. VASCULATURE: Atherosclerotic calcifications of the aorta. No aortic aneurysm. BONES: Degenerative changes. OTHER FINDINGS: Bilateral fat containing inguinal hernias. Tiny ventral wall hernia. IMPRESSION: Findings consistent with acute diverticulitis and small perforation. Elongated gas collection adjacent to the sigmoid colon with associated phlegmonous changes. No definite drainable abscess identified. Small to moderate bilateral pleural effusions and compressive consolidations. Small hiatal hernia with evidence of gastroesophageal reflux. Additional findings as above.
[2017-11-05] MEDS: Piperacillin/Tazobact 3.375 GM in Sodium Chloride 0.9% 100 ML IVPB SCH ×3 (00:25→16:03)
[2017-11-05] MEDS: Lactated Ringer's 1,000 ML IV SCH ×2 (04:03→09:03)
[2017-11-05] MEDS: metroNIDAZOLE 500mg/100ml NS 100 ML IVPB SCH ×3 (04:48→20:32)
[2017-11-05 06:35] LABS: ALBUMIN 2.7 g/dL (3.5-5.0); ALT/SGPT 31 U/L (21-72); AST/SGOT 30 U/L (17-59); BLOOD UREA NITROGEN 8 mg/dl (9-20); GFR NON-AFRICAN AMERICAN > 60
[2017-11-05 06:40] LABS: BASO % 0.3 % (0.0-2.0); EOS # 0.1 K/uL (0.0-0.7); EOS % 0.7 % (0.0-4.0); HEMOGLOBIN 10.1 g/dL (12.0-18.0); LYMPH # 0.7 K/uL (1.0-4.3); LYMPH % 5.7 % (20.0-40.0); MEAN CELL VOLUME 87.4 fl (80.0-94.0); MEAN CORPUSCULAR HEMOGLOBIN 29.6 pg (27.0-31.0); MEAN CORPUSCULAR HGB CONC 33.8 g/dL (33.0-37.0); MEAN PLATELET VOLUME 6.8 fl (7.2-11.7); MONO % 7.7 % (0.0-10.0); NEUT # 11.3 K/uL (1.8-7.0); NEUT % 85.6 % (50.0-75.0); NRBC % 0.1 % (0.0-0.0); RBC 3.42 Mil/uL (4.40-5.90); RED CELL DISTRIBUTION WIDTH 13.9 % (11.5-14.5); WHITE BLOOD COUNT 13.2 K/uL (4.8-10.8)
[2017-11-05] MEDS ORDERED: Potassium Chloride 20 mEq/15 ml LIQ UD PO ONE (08:37)
[2017-11-05] MEDS ORDERED: Potassium CL 10mEq/100ml 100 ML IVPB ONE (08:40)
--- NOTE | 2017-11-05 08:54 | CP.PCM.PN ---
Subjective - Date & Time of Evaluation Date of Evaluation: 11/05/17 Time of Evaluation: 08:52 - Subjective Subjective: pt in incr pain, no f/c, n/v/d. rlq pain incr from yesterday. abd distention incr, bowel sounds decr. case d/c w/ dr jerome-surgery ID consults appriciated. Objective - Vital Signs/Intake and Output Vital Signs (last 24 hours): Temp Pulse Resp BP Pulse Ox 99.2 F 67 20 137/74 96 11/05/17 07:39 11/05/17 07:39 11/05/17 07:39 11/05/17 07:39 11/05/17 07:39 - Medications Medications: Current Medications Acetaminophen (Tylenol 325mg Tab) 650 mg PO Q6 PRN PRN Reason: Fever >100.4 F Hydromorphone HCl (Dilaudid) 1 mg IVP Q4 PRN PRN Reason: Pain, severe (8-10) Last Admin: 11/05/17 07:54 Dose: 1 mg Metronidazole (Flagyl 500mg/100ml Ns) 100 mls @ 100 mls/hr IVPB Q8H [facility] PRN Reason: Protocol Last Admin: 11/05/17 04:48 Dose: 100 mls/hr Vancomycin HCl 1 gm/ Sodium (Chloride) 250 mls @ 166.667 mls/hr IVPB Q12 [facility] PRN Reason: Protocol Last Admin: 11/05/17 08:37 Dose: 166.667 mls/hr Piperacillin Sod/Tazobactam (Sod 3.375 gm/ Sodium Chloride) 100 mls @ 100 mls/ hr IVPB Q8@0100,0900,1700 [facility] PRN Reason: Protocol Last Admin: 11/05/17 08:39 Dose: 100 mls/hr Potassium Chloride (Potassium Chloride 10 Meq/100 Ml) 100 mls @ 100 mls/hr IVPB ONCE ONE Stop: 11/05/17 09:39 Potassium Chloride 20 meq/ (Lactated Ringer's) 1,010 mls @ 125 mls/hr IV .Q8H5M [facility] Stop: 11/07/17 09:01 Ondansetron HCl (Zofran Inj) 4 mg IVP Q4 PRN PRN Reason: Nausea/Vomiting Last Admin: 11/05/17 00:34 Dose: 4 mg Pantoprazole Sodium (Protonix Inj) 40 mg IVP DAILY [facility] Last Admin: 11/05/17 08:35 Dose: 40 mg - Labs Labs: 11/05/17 05:30 11/05/17 05:30 PT 13.8 Seconds (9.8-13.1) H 10/29/17 21:00 INR 1.2 10/29/17 21:00 APTT 30.6 Seconds (25.6-37.1) 10/29/17 21:00 - Constitutional Appears: Non-toxic, No Acute Distress - Head Exam Head Exam: ATRAUMATIC, NORMAL INSPECTION, NORMOCEPHALIC - Eye Exam Eye Exam: EOMI, Normal appearance, PERRL Pupil Exam: NORMAL ACCOMODATION, PERRL - ENT Exam ENT Exam: Mucous Membranes Moist, Normal Exam - Neck Exam Neck Exam: Full ROM, Normal Inspection. absent: Lymphadenopathy - Respiratory Exam Respiratory Exam: Clear to Ausculation Bilateral, NORMAL BREATHING PATTERN - Cardiovascular Exam Cardiovascular Exam: REGULAR RHYTHM, RRR, +S1, +S2. absent: Murmur - GI/Abdominal Exam GI & Abdominal Exam: Distended, Soft, Tenderness, Hypoactive Bowel Sounds Additional comments: rlq tenderness - Extremities Exam Extremities Exam: Full ROM, Normal Capillary Refill, Normal Inspection. absent : Joint Swelling, Pedal Edema - Back Exam Back Exam: NORMAL INSPECTION - Neurological Exam Neurological Exam: Alert, Awake, CN II-XII Intact, Normal Gait, Oriented x3 - Psychiatric Exam Psychiatric exam: Normal Affect, Normal Mood - Skin Skin Exam: Dry, Intact, Normal Color, Warm Assessment and Plan (1) Diverticulitis of colon with perforation Status: Acute (2) DVT prophylaxis Status: Acute - Assessment and Plan (Free Text) Assessment: (1) Diverticulitis of colon with perforation Assessment & Plan: cont anbx, cont all consults pain control ct report pending case d/c w/ dr jerome repeat ct today Status: Acute (2) DVT prophylaxis Assessment & Plan: scd nad ae hose Status: Acute
--- NOTE | 2017-11-05 11:40 | CP.PCM.PN ---
Subjective - Date & Time of Evaluation Date of Evaluation: 11/05/17 Time of Evaluation: 10:40 - Subjective Subjective: Patient was seen and examined at the bedside. Still has abdominal pain, passing flatus and had a small bowel movement. Objective - Vital Signs/Intake and Output Vital Signs (last 24 hours): Temp Pulse Resp BP Pulse Ox 99.2 F 67 20 137/74 96 11/05/17 07:39 11/05/17 07:39 11/05/17 07:39 11/05/17 07:39 11/05/17 07:39 - Medications Medications: Current Medications Acetaminophen (Tylenol 325mg Tab) 650 mg PO Q6 PRN PRN Reason: Fever >100.4 F Hydromorphone HCl (Dilaudid) 1 mg IVP Q4 PRN PRN Reason: Pain, severe (8-10) Last Admin: 11/05/17 07:54 Dose: 1 mg Metronidazole (Flagyl 500mg/100ml Ns) 100 mls @ 100 mls/hr IVPB Q8H [facility] PRN Reason: Protocol Last Admin: 11/05/17 04:48 Dose: 100 mls/hr Vancomycin HCl 1 gm/ Sodium (Chloride) 250 mls @ 166.667 mls/hr IVPB Q12 [facility] PRN Reason: Protocol Last Admin: 11/05/17 08:37 Dose: 166.667 mls/hr Piperacillin Sod/Tazobactam (Sod 3.375 gm/ Sodium Chloride) 100 mls @ 100 mls/ hr IVPB Q8@0100,0900,1700 [facility] PRN Reason: Protocol Last Admin: 11/05/17 08:39 Dose: 100 mls/hr Potassium Chloride 20 meq/ (Lactated Ringer's) 1,010 mls @ 125 mls/hr IV .Q8H5M [facility] Stop: 11/07/17 09:01 Ondansetron HCl (Zofran Inj) 4 mg IVP Q4 PRN PRN Reason: Nausea/Vomiting Last Admin: 11/05/17 00:34 Dose: 4 mg Pantoprazole Sodium (Protonix Inj) 40 mg IVP DAILY [facility] Last Admin: 11/05/17 08:35 Dose: 40 mg - Labs Labs: 11/05/17 05:30 11/05/17 05:30 PT 13.8 Seconds (9.8-13.1) H 10/29/17 21:00 INR 1.2 10/29/17 21:00 APTT 30.6 Seconds (25.6-37.1) 10/29/17 21:00 - Constitutional Appears: Well, Non-toxic, No Acute Distress - Head Exam Head Exam: ATRAUMATIC, NORMAL INSPECTION, NORMOCEPHALIC - Eye Exam Eye Exam: EOMI, Normal appearance, PERRL Pupil Exam: NORMAL ACCOMODATION, PERRL - ENT Exam ENT Exam: Mucous Membranes Moist, Normal Exam - Neck Exam Neck Exam: Full ROM, Normal Inspection - Respiratory Exam Respiratory Exam: Clear to Ausculation Bilateral, NORMAL BREATHING PATTERN - Cardiovascular Exam Cardiovascular Exam: REGULAR RHYTHM, +S1, +S2 - GI/Abdominal Exam GI & Abdominal Exam: Soft, Normal Bowel Sounds Additional comments: very tender in the lower abdomen, mildly distended, well healed scar from prior surgery
[2017-11-05] MEDS: Potassium Chloride 20 MEQ in Lactated Ringer's 1,000 ML IV SCH ×2 (11:55→16:07)
--- NOTE | 2017-11-05 11:58 | CP.PCM.PN ---
<Samra Rosales - Last Filed: 11/05/17 11:52> Subjective - Date & Time of Evaluation Date of Evaluation: 11/05/17 Time of Evaluation: 11:52 - Subjective Subjective: General Surgery Pt seen and examined this AM with Dr. Slaughter. Pt continues to have abdominal pain, better compared to yesterday. Pt also with (+) flatus and (+) small BM described as dark with ground consistency. Afebrile. Poor PO intake, only drank tea today. Labs and vitals noted. Pt continues with hypoK despite repletion yesterday. PE Gen: Pt laying in bed in NAD Skin: warm and dry Abd: soft, (+) tender in right middle and lower quadrant, (+) mildly distended, well healed surgical scar A/P Diverticulitis with perforation CT scan had no drainable abscesses identified Pt continues to have pain, WBC trending up Pt continues with hypokalemia, repletion ordered today. Needs repeat K level tonight. NPO after midnight Pt for OR tomorrow for open sigmoid resection with probable colostomy. Pt and aware of the plan for tomorrow. Objective - Vital Signs/Intake and Output Vital Signs (last 24 hours): Temp Pulse Resp BP Pulse Ox 99.2 F 67 20 137/74 96 11/05/17 07:39 11/05/17 07:39 11/05/17 07:39 11/05/17 07:39 11/05/17 07:39 - Medications Medications: Current Medications Acetaminophen (Tylenol 325mg Tab) 650 mg PO Q6 PRN PRN Reason: Fever >100.4 F Hydromorphone HCl (Dilaudid) 1 mg IVP Q4 PRN PRN Reason: Pain, severe (8-10) Last Admin: 11/05/17 07:54 Dose: 1 mg Metronidazole (Flagyl 500mg/100ml Ns) 100 mls @ 100 mls/hr IVPB Q8H [facility] PRN Reason: Protocol Last Admin: 11/05/17 04:48 Dose: 100 mls/hr Vancomycin HCl 1 gm/ Sodium (Chloride) 250 mls @ 166.667 mls/hr IVPB Q12 [facility] PRN Reason: Protocol Last Admin: 11/05/17 08:37 Dose: 166.667 mls/hr Piperacillin Sod/Tazobactam (Sod 3.375 gm/ Sodium Chloride) 100 mls @ 100 mls/ hr IVPB Q8@0100,0900,1700 [facility] PRN Reason: Protocol Last Admin: 11/05/17 08:39 Dose: 100 mls/hr Potassium Chloride 20 meq/ (Lactated Ringer's) 1,010 mls @ 125 mls/hr IV .Q8H5M [facility] Stop: 11/07/17 09:01 Ondansetron HCl (Zofran Inj) 4 mg IVP Q4 PRN PRN Reason: Nausea/Vomiting Last Admin: 11/05/17 00:34 Dose: 4 mg Pantoprazole Sodium (Protonix Inj) 40 mg IVP DAILY [facility] Last Admin: 11/05/17 08:35 Dose: 40 mg - Labs Labs: 11/05/17 05:30 11/05/17 05:30 PT 13.8 Seconds (9.8-13.1) H 10/29/17 21:00 INR 1.2 10/29/17 21:00 APTT 30.6 Seconds (25.6-37.1) 10/29/17 21:00 <Jay Slaughter - Last Filed: 11/05/17 12:08> Subjective - Subjective Subjective: Patient was seen and examined at the bedside. Agree with note above. Objective - Vital Signs/Intake and Output Vital Signs (last 24 hours): Temp Pulse Resp BP Pulse Ox 99.2 F 67 20 137/74 96 11/05/17 07:39 11/05/17 07:39 11/05/17 07:39 11/05/17 07:39 11/05/17 07:39 - Medications Medications: Current Medications Acetaminophen (Tylenol 325mg Tab) 650 mg PO Q6 PRN PRN Reason: Fever >100.4 F Hydromorphone HCl (Dilaudid) 1 mg IVP Q4 PRN PRN Reason: Pain, severe (8-10) Last Admin: 11/05/17 12:02 Dose: 1 mg Metronidazole (Flagyl 500mg/100ml Ns) 100 mls @ 100 mls/hr IVPB Q8H [facility] PRN Reason: Protocol Last Admin: 11/05/17 04:48 Dose: 100 mls/hr Vancomycin HCl 1 gm/ Sodium (Chloride) 250 mls @ 166.667 mls/hr IVPB Q12 [facility] PRN Reason: Protocol Last Admin: 11/05/17 08:37 Dose: 166.667 mls/hr Piperacillin Sod/Tazobactam (Sod 3.375 gm/ Sodium Chloride) 100 mls @ 100 mls/ hr IVPB Q8@0100,0900,1700 [facility] PRN Reason: Protocol Last Admin: 11/05/17 08:39 Dose: 100 mls/hr Potassium Chloride 20 meq/ (Lactated Ringer's) 1,010 mls @ 125 mls/hr IV .Q8H5M [facility] Stop: 11/07/17 09:01 Last Admin: 11/05/17 11:55 Dose: 125 mls/hr Ondansetron HCl (Zofran Inj) 4 mg IVP Q4 PRN PRN Reason: Nausea/Vomiting Last Admin: 11/05/17 00:34 Dose: 4 mg Pantoprazole Sodium (Protonix Inj) 40 mg IVP DAILY [facility] Last Admin: 11/05/17 08:35 Dose: 40 mg - Labs Labs: 11/05/17 05:30 11/05/17 05:30 PT 13.8 Seconds (9.8-13.1) H 10/29/17 21:00 INR 1.2 10/29/17 21:00 APTT 30.6 Seconds (25.6-37.1) 10/29/17 21:00
--- NOTE | 2017-11-05 18:09 | CARD ---
APPROVED REPORT Date of service: 11/05/2017 <Conclusion> Normal sinus rhythm Low voltage QRS Borderline ECG
--- NOTE | 2017-11-05 18:10 | CP.PCM.PN ---
Subjective - Date & Time of Evaluation Date of Evaluation: 11/05/17 Time of Evaluation: 18:09 - Subjective Subjective: I D NOTE FOr SURGERY TOMORROW CONTINUE SAME ANTIBIOTIC REGIMEN DISCUSSED C PATIENT AND FAMILY Objective - Vital Signs/Intake and Output Vital Signs (last 24 hours): Temp Pulse Resp BP Pulse Ox 99 F 116 H 18 133/77 96 11/05/17 16:13 11/05/17 16:13 11/05/17 16:13 11/05/17 16:13 11/05/17 16:13 - Medications Medications: Current Medications Acetaminophen (Tylenol 325mg Tab) 650 mg PO Q6 PRN PRN Reason: Fever >100.4 F Hydromorphone HCl (Dilaudid) 1 mg IVP Q4 PRN PRN Reason: Pain, severe (8-10) Last Admin: 11/05/17 16:02 Dose: 1 mg Metronidazole (Flagyl 500mg/100ml Ns) 100 mls @ 100 mls/hr IVPB Q8H [facility] PRN Reason: Protocol Last Admin: 11/05/17 12:08 Dose: 100 mls/hr Vancomycin HCl 1 gm/ Sodium (Chloride) 250 mls @ 166.667 mls/hr IVPB Q12 [facility] PRN Reason: Protocol Last Admin: 11/05/17 08:37 Dose: 166.667 mls/hr Piperacillin Sod/Tazobactam (Sod 3.375 gm/ Sodium Chloride) 100 mls @ 100 mls/ hr IVPB Q8@0100,0900,1700 [facility] PRN Reason: Protocol Last Admin: 11/05/17 16:03 Dose: 100 mls/hr Potassium Chloride 20 meq/ (Lactated Ringer's) 1,010 mls @ 125 mls/hr IV .Q8H5M [facility] Stop: 11/07/17 09:01 Last Admin: 11/05/17 16:07 Dose: Not Given Ondansetron HCl (Zofran Inj) 4 mg IVP Q4 PRN PRN Reason: Nausea/Vomiting Last Admin: 11/05/17 12:09 Dose: 4 mg Pantoprazole Sodium (Protonix Inj) 40 mg IVP DAILY [facility] Last Admin: 11/05/17 08:35 Dose: 40 mg - Labs Labs: 11/05/17 05:30 11/05/17 05:30 PT 13.8 Seconds (9.8-13.1) H 10/29/17 21:00 INR 1.2 10/29/17 21:00 APTT 30.6 Seconds (25.6-37.1) 10/29/17 21:00
[2017-11-05] MEDS: KCL 40MEQ/NS 1L 1,000 ML IV SCH (21:44)
[2017-11-06] MEDS: Piperacillin/Tazobact 3.375 GM in Sodium Chloride 0.9% 100 ML IVPB SCH ×3 (00:01→17:00)
[2017-11-06] MEDS: Potassium Chloride 20 MEQ in Lactated Ringer's 1,000 ML IV SCH ×2 (03:21→10:03)
[2017-11-06] MEDS: metroNIDAZOLE 500mg/100ml NS 100 ML IVPB SCH ×4 (04:24→20:38)
[2017-11-06] MEDS: KCL 40MEQ/NS 1L 1,000 ML IV SCH (06:32)
[2017-11-06 06:35] LABS: BASO % 0.3 % (0.0-2.0); EOS # 0.1 K/uL (0.0-0.7); EOS % 1.1 % (0.0-4.0); HEMOGLOBIN 10.3 g/dL (12.0-18.0); LYMPH # 0.7 K/uL (1.0-4.3); LYMPH % 5.5 % (20.0-40.0); MEAN CELL VOLUME 87.3 fl (80.0-94.0); MEAN CORPUSCULAR HEMOGLOBIN 30.1 pg (27.0-31.0); MEAN CORPUSCULAR HGB CONC 34.5 g/dL (33.0-37.0); MEAN PLATELET VOLUME 6.9 fl (7.2-11.7); MONO # 0.9 K/uL (0.0-0.8); MONO % 7.9 % (0.0-10.0); NEUT # 10.2 K/uL (1.8-7.0); NEUT % 85.2 % (50.0-75.0); RBC 3.41 Mil/uL (4.40-5.90); RED CELL DISTRIBUTION WIDTH 14.1 % (11.5-14.5)
[2017-11-06 06:45] LABS: INR 1.5; PROTHROMBIN TIME 17.2 Seconds (9.8-13.1)
[2017-11-06 06:47] LABS: PARTIAL THROMBOPLASTIN TIME 32.7 Seconds (25.6-37.1)
[2017-11-06 07:15] LABS: ALBUMIN 2.8 g/dL (3.5-5.0); ALT/SGPT 32 U/L (21-72); AST/SGOT 38 U/L (17-59); BLOOD UREA NITROGEN 7 mg/dl (9-20); CALCIUM 8.2 mg/dL (8.4-10.2); GFR NON-AFRICAN AMERICAN > 60
[2017-11-06] MEDS ORDERED: Magnesium Sulfate 1 GM in Dextrose 5% In Water 100 ML IVPB ONE (07:31)
[2017-11-06] MEDS: Potassium Chloride 20 mEq 100 ML IVPB SCH (09:09)
--- NOTE | 2017-11-06 09:16 | CP.PCM.PN ---
Subjective - Date & Time of Evaluation Date of Evaluation: 11/06/17 Time of Evaluation: 09:16 - Subjective Subjective: pt w/ worsening pain. no f/c, n/v/d. passing stool. for surgery today w/ ?? ostomy bw noted. all consults appriciated. Objective - Vital Signs/Intake and Output Vital Signs (last 24 hours): Temp Pulse Resp BP Pulse Ox 98.8 F 98 H 20 137/82 96 11/06/17 07:59 11/06/17 07:59 11/06/17 07:59 11/06/17 07:59 11/06/17 07:59 - Medications Medications: Current Medications Acetaminophen (Tylenol 325mg Tab) 650 mg PO Q6 PRN PRN Reason: Fever >100.4 F Hydromorphone HCl (Dilaudid) 1 mg IVP Q4 PRN PRN Reason: Pain, severe (8-10) Last Admin: 11/06/17 08:11 Dose: 1 mg Metronidazole (Flagyl 500mg/100ml Ns) 100 mls @ 100 mls/hr IVPB Q8H [facility] PRN Reason: Protocol Last Admin: 11/06/17 04:24 Dose: 100 mls/hr Vancomycin HCl 1 gm/ Sodium (Chloride) 250 mls @ 166.667 mls/hr IVPB Q12 [facility] PRN Reason: Protocol Last Admin: 11/06/17 08:05 Dose: 166.667 mls/hr Piperacillin Sod/Tazobactam (Sod 3.375 gm/ Sodium Chloride) 100 mls @ 100 mls/ hr IVPB Q8@0100,0900,1700 [facility] PRN Reason: Protocol Last Admin: 11/06/17 08:05 Dose: 100 mls/hr Potassium Chloride 20 meq/ (Lactated Ringer's) 1,010 mls @ 125 mls/hr IV .Q8H5M [facility] Stop: 11/07/17 09:01 Last Admin: 11/06/17 03:21 Dose: Not Given Oral Electrolytes (Kcl 40meq/ 0.9% 1l) 1,000 mls @ 100 mls/hr IV .Q10H [facility] Stop: 11/06/17 20:30 Last Admin: 11/06/17 06:32 Dose: Not Given Potassium Chloride (Potassium Chloride 20 Meq/100 Ml) 100 mls @ 50 mls/hr IVPB Q2 [facility] Stop: 11/06/17 09:59 Last Admin: 11/06/17 09:09 Dose: 50 mls/hr Ondansetron HCl (Zofran Inj) 4 mg IVP Q4 PRN PRN Reason: Nausea/Vomiting Last Admin: 11/06/17 08:13 Dose: 4 mg Pantoprazole Sodium (Protonix Inj) 40 mg IVP DAILY [facility] Last Admin: 11/06/17 08:05 Dose: 40 mg Zolpidem Tartrate (Ambien) 5 mg PO HS PRN PRN Reason: Insomnia Last Admin: 11/05/17 23:33 Dose: 5 mg - Labs Labs: 11/06/17 06:00 11/06/17 06:00 PT 17.2 Seconds (9.8-13.1) H 11/06/17 06:00 INR 1.5 11/06/17 06:00 APTT 32.7 Seconds (25.6-37.1) 11/06/17 06:00 - Constitutional Appears: Well, Non-toxic, No Acute Distress - Head Exam Head Exam: ATRAUMATIC, NORMAL INSPECTION, NORMOCEPHALIC - Eye Exam Eye Exam: EOMI, Normal appearance, PERRL Pupil Exam: NORMAL ACCOMODATION, PERRL - ENT Exam ENT Exam: Mucous Membranes Moist, Normal Exam - Neck Exam Neck Exam: Full ROM, Normal Inspection. absent: Lymphadenopathy - Respiratory Exam Respiratory Exam: Clear to Ausculation Bilateral, NORMAL BREATHING PATTERN - Cardiovascular Exam Cardiovascular Exam: REGULAR RHYTHM, RRR, +S1, +S2. absent: Murmur - GI/Abdominal Exam GI & Abdominal Exam: Soft, Tenderness, Normal Bowel Sounds - Extremities Exam Extremities Exam: Full ROM, Normal Capillary Refill, Normal Inspection. absent : Joint Swelling, Pedal Edema - Back Exam Back Exam: NORMAL INSPECTION - Neurological Exam Neurological Exam: Alert, Awake, CN II-XII Intact, Normal Gait, Oriented x3 - Psychiatric Exam Psychiatric exam: Normal Affect, Normal Mood - Skin Skin Exam: Dry, Intact, Normal Color, Warm Assessment and Plan (1) Diverticulitis of colon with perforation Status: Acute (2) DVT prophylaxis Status: Acute - Assessment and Plan (Free Text) Assessment: (1) Diverticulitis of colon with perforation Assessment & Plan: cont anbx, cont all consults pain control npo, ivf w/ kcl case d/c w/ dr jerome repeat ct noted or today Status: Acute (2) DVT prophylaxis Assessment & Plan: scd nad ae hose Status: Acute [id number] added to lr, po kdur
--- NOTE | 2017-11-06 11:49 | PQF ---
PROVIDER RESPONSE TEXT: Pos bc likely r/t divertic w/ perf REVIEWER QUERY TEXT: Documentation Clarification Are there any additional diagnoses to go along with the 11/03: Draft : ID documentation of : patient perez s positive culture for Gm pos cocci in chains OR: Unable to determine OR: Other explanation of clinical finding OR: Disagree 10/29/17@21:15: Blood Culture: 11/04/17:Final: Peptostreptococcus Micros: Anaerobic bottle : positive on ly 10/29/17@21:20: Second Blood Culture: negative 11/04: Blood Culture: preliminary: no growth after 24 hours 11/03 Draft: ID progress note: Subjective: PATIENT HAS POSITIVE CULTURE FOR GRAM POS COCCI IN CHAINS(STREP/ENTEROCOCCUS) ,HAD ORDERED I GM IV VANCOMYCIN IVPB Q12 H IN ADDITION WILL RE EVAULATE AFTER IDENTIFICATION/SENSITIVITY AVAILABLE HAS SMALL PERFORATION PREVIOSLY NOTED 11/04:Draft ID progress note: ABDOMEN:HAS DISTENTION.TENDERNESS ,ESPECIALLY RLQ, WBC is STILL 12 DISCU SSED c SURGERY MAY SURGERY ,SOONER IF THERE IS IS NO IMPROVEMENT. CONTINUE 3 ANTIBIOTIC REGIMEN The patient's Clinical Indicators include: xx Query created by: Jenna Limon on 11/06/2017 11:38 AM Electronically signed by: Jacques Hanson APN 11/06/2017 11:45 AM
[2017-11-06] MEDS ORDERED: Propofol 10 mg/ml Inj (20 ML) ONE (12:11)
[2017-11-06] MEDS ORDERED: Rocuronium 10 mg/ml (5 ml) ONE ×2 (12:11→14:34)
[2017-11-06] MEDS ORDERED: Lidocaine 4% (Laryng-O-Jet) Kit MM ONE (12:12)
[2017-11-06] MEDS ORDERED: Lidocaine 1% 5ml Abboject IV ONE (12:12)
[2017-11-06] MEDS ORDERED: Etomidate 20 mg/10ml Inj IV ONE (12:12)
[2017-11-06] MEDS ORDERED: Succinylcholine 200 mg/10 ml Inj IV ONE (12:12)
[2017-11-06] MEDS ORDERED: Lidocaine 4% MPF 5 ML IJ ONE (12:14)
[2017-11-06] MEDS ORDERED: Dexamethasone 4 mg/1 ml ONE (12:14)
[2017-11-06] MEDS ORDERED: Phenylephrine 10 mg/ml Inj ONE (12:15)
[2017-11-06] MEDS ORDERED: Lactated Ringer's 1,000 ML IV ONE ×4 (12:35→15:12)
[2017-11-06] MEDS ORDERED: Ketamine 50 mg/ml Inj (10 ml) ONE (12:37)
[2017-11-06] MEDS ORDERED: Midazolam 2 MG/2 ML VIAL ONE (12:39)
[2017-11-06] MEDS ORDERED: Liquid Adhesive TOP ONE ×3 (14:45)
[2017-11-06] MEDS ORDERED: Neostigmine 1:1000 (1 mg/ml) Inj ONE (14:52)
--- NOTE | 2017-11-06 15:10 | PCM.SURG1 ---
Surgeon's Initial Post Op Note - Surgeon's Notes Surgeon: Dr. Slaughter Truss Designer: Dr. Rueda, Dr. Watson PGY-3 Type of Anesthesia: General Endo Anesthesia Administered By: Dr. Barron Pre-Operative Diagnosis: Acute Diverticulitis Operative Findings: See operative report Post-Operative Diagnosis: Perforated Diverticulitis with phlegmon/abscess Operation Performed: Ex-Lap with extensive lysis of adhesions & [place]'s Specimen/Specimens Removed: Part of Sigmoid colon Estimated Blood Loss: EBL {In ML}: 50 Blood Products Given: N/A Drains Used: No Drains, Ostomy Device Post-Op Condition: Good Date of Surgery/Procedure: 11/06/17 Time of Surgery/Procedure: 15:10
[2017-11-06] MEDS ORDERED: Oxycodone/Acetaminophen 5/325 mg Tab PO PRN (15:11)
[2017-11-06] MEDS: HYDROmorphone 0.5 mg/0.5 ml ISec IVP PRN ×4 (15:15→16:05)
--- NOTE | 2017-11-06 15:19 | PCM.ANESB5 ---
Transverse Abdominis Block - Transverse Abdominis Plane Date of Procedure: 11/06/17 Anesthesiologist: Carolann Pre-Procedure Diagnosis: Perforated divericulitis Post-Procedure Diagnosis: Same Procedure Performed: Transverse Abdominis Plane Nerve Block Left, Transverse Abdominis Plane Nerve Block Right - Procedure Transverse Abdominis Plane Nerve Block: The procedure was explained to the patient that it is for post-operative pain management and would be performed after surgery. Consent was obtained prior to surgery after a thorough discussion with the patient regarding the benefits and possible complications of transverse abdominis plane block. After the surgery had concluded and before the patient emerged from general anesthesia, time-out was held with the circulating nurse to re-confirm the appropriate block. With the patient in supine position, the ultrasound probe was placed transverse to the abdominal wall at the mid-axillary line above the iliac crest of the appropriate side. The skin, subcutaneous tissue, fat, external oblique muscle, internal oblique muscle, and the transverse abdominis muscle were identified. The general area of the block site was then prepped with Betadine three times. At this point, a # 21-gauge Stimuplex 4-inch needle was inserted posterior to and in plane with the ultrasound probe and directed anteriorly. Needle was advanced under direct ultrasound visualization until it reached the plane between the internal oblique and transverse abdominis muscles. After appropriate placement, 2mL of local anesthetic solution was injected. When the transverse abdominis plane was observed expanding in an ellipsoid way, the rest of the solution was slowly injected. A total of ___30___ mL of _0.25____ % _ bupivicaine with 1:200,000 epinephrine was used for this block. The needle was then removed and sterile dressing was applied. Similarly, the same procedure was performed on the other side using the same medications. The patient had stable vital signs throughout and had no untoward complications after emergence from general anesthesia in the recovery room.
[2017-11-06] MEDS: Lactated Ringer's 1,000 ML IV SCH ×3 (17:17→22:10)
[2017-11-07] MEDS: Piperacillin/Tazobact 3.375 GM in Sodium Chloride 0.9% 100 ML IVPB SCH ×3 (01:40→16:39)
[2017-11-07] MEDS: Potassium Chloride 20 MEQ in Lactated Ringer's 1,000 ML IV SCH (01:55)
[2017-11-07] MEDS: metroNIDAZOLE 500mg/100ml NS 100 ML IVPB SCH ×3 (05:07→20:20)
[2017-11-07] MEDS: Lactated Ringer's 1,000 ML IV SCH (05:08)
[2017-11-07 06:37] LABS: HEMOGLOBIN 10.9 g/dL (12.0-18.0); MEAN CELL VOLUME 87.9 fl (80.0-94.0); MEAN CORPUSCULAR HEMOGLOBIN 29.7 pg (27.0-31.0); MEAN CORPUSCULAR HGB CONC 33.8 g/dL (33.0-37.0); RBC 3.68 Mil/uL (4.40-5.90); RED CELL DISTRIBUTION WIDTH 13.8 % (11.5-14.5); WHITE BLOOD COUNT 16.9 K/uL (4.8-10.8)
[2017-11-07 07:20] LABS: ALBUMIN 2.8 g/dL (3.5-5.0); ALT/SGPT 25 U/L (21-72); AST/SGOT 28 U/L (17-59); BLOOD UREA NITROGEN 11 mg/dl (9-20); CALCIUM 8.3 mg/dL (8.4-10.2); GFR NON-AFRICAN AMERICAN > 60
[2017-11-07] MEDS ORDERED: Potassium Chloride 20 mEq 100 ML IVPB SCH (08:00)
--- NOTE | 2017-11-07 08:26 | OP ---
PROCEDURE DATE: 11/06/17 PREOPERATIVE DIAGNOSIS: Acute diverticulitis and perforation of the sigmoid colon. POSTOPERATIVE DIAGNOSIS: Acute diverticulitis and perforation of the sigmoid colon. PROCEDURE: Exploratory laparotomy and sigmoid colectomy and descending colostomy. SURGEON: Jay Slaughter MD ROBOTICS APPLICATION ENGINEER: Dr. Rueda. SECOND ROBOTICS APPLICATION ENGINEER: Jane Watson DO, certified ophthalmic surgical assistant. ANESTHESIOLOGIST: Brenton Vuong MD ANESTHESIA: General endotracheal intubation. IV FLUIDS: Crystalloids. ESTIMATED BLOOD LOSS: 50 mL. INTRAOPERATIVE FINDINGS: Perforated sigmoid colon and intraabdominal abscess. SPECIMEN: Sigmoid colon. BRIEF HISTORY: Mr. Sawyer is a very pleasant 61-year-old gentleman who presented to the hospital complaining of severe abdominal pain, and upon further investigation on the CAT scan, the patient was found to have microperforation of the sigmoid colon with a lot of inflammatory changes in the sigmoid colon. Initially, the patient was treated conservatively with antibiotics, n.p.o., on IV fluids. However as the time progresses, the patient did not improve as much as we would like to and repeat CAT scan was obtained. Repeat CAT scan essentially was re-demonstration of the sigmoid diverticulitis, but no drainable abscess, only phlegmonous changes. So at this point in time, the patient failed conservative management so decision was made to take the patient to operating room for above stated procedure. All the risks and benefits of the procedure were explained to the patient, and the patient have an full understanding of all the risks and benefits involved. Informed consent was obtained and the patient was taken to the operating room for above stated procedure. DESCRIPTION OF PROCEDURE: The patient was brought into the operating room and placed supine on the operating table. Bilateral Flowtron boots were applied to the patient's lower extremities. After successful induction of anesthesia and successful endotracheal intubation by the Anesthesia team, Kendall catheter was inserted into the patient's urinary bladder. Subsequent to that, the patient's abdomen was shaved and prepped with Chloraprep stick and draped in a standard surgical fashion. Prior to the beginning of the procedure, time out was called in the room and every one in the room were in agreement. Using a #10 blade scalpel knife, approximately 20 cm incision was made in the midline, slightly extending above the umbilicus, going around the umbilicus on the right side of the patient and extending down to the pelvis. Subsequent to that, dissection was carried down with electrical cautery through the subcutaneous tissues until the fascial layer was encountered. Once the fascia was encountered, small joão was made in the fascia and at this point in time, two Agatha clamps were placed on both ends of the fascia. Fascial layer was opened up a little more, and the peritoneal layer was encountered. Peritoneum was grabbed with two Agatha clamps and transected with Metzenbaum scissors. At this point in time, the patient's abdominal cavity was entered. Once this was accomplished, the entire length of the fascial layer was opened up and at this point in time, we encountered the lot of inflammatory changes, and there was actually abscess cavity that was a stuck to the anterior abdominal wall and was rolled off by the sigmoid colon and the small bowel. There, we drained approximately 20 mL of purulent material. Wound cultures were obtained, and at this point in time, the colon was bluntly from the small bowel in inflammatory run, and once this was accomplished, small bowel was out of the way, and now attention was turned to the sigmoid colon. Once the sigmoid colon was inspected, there appeared to be a perforation in the mid sigmoid colon, so at this point in time, a small joão was made in the mesentery of the sigmoid colon proximal to the area of the perforation, and subsequent to that for the mesenteric defect, 75 blue load GI stapler was inserted. At this point in time, the staple was fired. Subsequent to that, the mesentery of the sigmoid colon was taken with the Impact LigaSure Once we passed the area of the perforation to the normal colon, looked the LigaSure device, we made a decision to use a TA 60 green load stapler was fired across the healthy appearing bowel distal to the area of the perforation, and subsequent to that, using curved Abdullahi, the colon was transected and passed off to the Abdullahi stand as a specimen. At this point in time, abdominal cavity was inspected, and there appeared to be no other signs of pathologies, so at this point in time, taking in to account, extremely inflamed colon and purulent peritonitis, we made a decision to bring up descending colon colostomy. Mid way between the umbilicus and the anterior superior iliac spine and left side of the patient's abdomen, surgical incision was made in the skin, and subsequent to that, dissection was carried down through the subcutaneous tissues and electrical cautery until anterior rectus sheath was encountered. Cruciate incision was made in the anterior rectus sheath, and subsequent to that, rectus muscle was encountered that was retracted medially and laterally until the posterior rectus sheath was encountered. Another cruciate insertion was made in the posterior rectus sheath, and at this point in time, two fingers were cut passed for the defect in the abdominal cavity, especially in the abdominal wall that was created. Once this was accomplished, Lizzy clamp was passed through the made defect and descending colon at the staple line was brought up to the anterior abdominal wall as s future ostomy. At this point in time, the fascial layer was closed with #1 looped PDS, one from above and one from below, and they were tied in the middle, and subsequent to that, the patient's wound was washed and dried and steffany were applied to the site of the incision. At this point in time, the colon at the ostomy site was opened up with electrocautery, and subsequent to that, a colostomy was broke at 12, 3, 6 and 9 o'clock position with 3-0 Monocryl sutures. At this point in time, the rest of the ostomy was matured with interrupted 3-0 Monocryl sutures. Once this was accomplished, the colostomy was digitalized and appeared to be patent. So at this point in time, the patient's abdomen was washed and dried, and the Mastisol was applied around the site of the colostomy and ostomy appliance was applied to the area of the colostomy. Clean dressing was applied to the site of the midline incision. At this point in time, the patient was successfully extubated by the anesthesia team, transferred to the stretcher and taken to the recovery room in a stable condition. At the end of the procedure, all instruments, counts, needles and sponges were correct. Jay Slaughter MD
--- NOTE | 2017-11-07 09:22 | CP.PCM.PN ---
<Jane Watson - Last Filed: 11/07/17 09:20> Subjective - Date & Time of Evaluation Date of Evaluation: 11/07/17 Time of Evaluation: 09:20 - Subjective Subjective: Surgery: Dr. Slaughter Pt seen and examined. s/p [place]'s POD#1. No acute overnight events. Pt states he's feeling very well this morning and has already been out of bed to chair. He states his pain is well controlled at this time. He denies any N/V, fevers/ chills, chest pain or SOB. Objective - Vital Signs/Intake and Output Vital Signs (last 24 hours): Temp Pulse Resp BP Pulse Ox 98.4 F 68 20 142/82 95 11/07/17 07:31 11/07/17 07:31 11/07/17 07:31 11/07/17 07:31 11/07/17 07:31 Intake and Output: 11/07/17 11/07/17 06:59 18:59 Intake Total 1000 Output Total 810 Balance 190 - Medications Medications: Current Medications Acetaminophen (Tylenol 325mg Tab) 650 mg PO Q6 PRN PRN Reason: Fever >100.4 F Hydromorphone HCl (Dilaudid) 1 mg IVP Q4 PRN PRN Reason: Pain, severe (8-10) Last Admin: 11/06/17 20:53 Dose: 1 mg Metronidazole (Flagyl 500mg/100ml Ns) 100 mls @ 100 mls/hr IVPB Q8H [facility] PRN Reason: Protocol Last Admin: 11/07/17 05:07 Dose: 100 mls/hr Piperacillin Sod/Tazobactam (Sod 3.375 gm/ Sodium Chloride) 100 mls @ 100 mls/ hr IVPB Q8@0100,0900,1700 [facility] PRN Reason: Protocol Last Admin: 11/07/17 08:34 Dose: 100 mls/hr Acetaminophen (Ofirmev) 100 mls @ 400 mls/hr IVPB Q6H [facility] PRN Reason: Protocol Stop: 11/07/17 12:31 Last Admin: 11/07/17 06:44 Dose: 400 mls/hr Vancomycin HCl 1 gm/ Sodium (Chloride) 250 mls @ 166.667 mls/hr IVPB Q12@1000, 2200 [facility] PRN Reason: Protocol Last Admin: 11/06/17 22:32 Dose: 166.667 mls/hr Potassium Chloride/Dextrose/Sod Cl (Potassium Chl 20 Meq In D5-1/2ns) 1,000 mls @ 125 mls/hr IV .Q8H [facility] Stop: 11/08/17 09:15 Ondansetron HCl (Zofran Inj) 4 mg IVP Q4 PRN PRN Reason: Nausea/Vomiting Last Admin: 11/06/17 08:13 Dose: 4 mg Oxycodone/Acetaminophen (Percocet 5/325 Mg Tab) 1 tab PO Q4 PRN PRN Reason: Pain, Mild (1-3) Stop: 11/09/17 15:12 Pantoprazole Sodium (Protonix Inj) 40 mg IVP DAILY [facility] Last Admin: 11/07/17 08:36 Dose: 40 mg Zolpidem Tartrate (Ambien) 5 mg PO HS PRN PRN Reason: Insomnia Last Admin: 11/05/17 23:33 Dose: 5 mg - Labs Labs: 11/07/17 06:20 11/07/17 06:20 PT 17.2 Seconds (9.8-13.1) H 11/06/17 06:00 INR 1.5 11/06/17 06:00 APTT 32.7 Seconds (25.6-37.1) 11/06/17 06:00 - Constitutional Appears: Well, No Acute Distress - Head Exam Head Exam: ATRAUMATIC, NORMOCEPHALIC - ENT Exam ENT Exam: Mucous Membranes Moist - Respiratory Exam Respiratory Exam: NORMAL BREATHING PATTERN - Cardiovascular Exam Cardiovascular Exam: RRR - GI/Abdominal Exam GI & Abdominal Exam: Soft, Tenderness (around midline incision, dressing clean/ dry/intact. Ostomy in LLQ with some air noted in bag, pink/patent). absent: Distended, Guarding - Extremities Exam Extremities Exam: absent: Calf Tenderness, Pedal Edema - Neurological Exam Neurological Exam: Alert, Awake, Oriented x3 - Skin Skin Exam: Dry, Warm Assessment and Plan - Assessment and Plan (Free Text) Assessment: 61M with acute perforated diverticulitis s/p Ex-lap with [place]'s; POD#1 Plan: - Cont NPO with IVF hydration - Cont IV ABX; ID on board - will advance diet slowly once pt has bowel function, due to severe inflammation of colon/SB found intra-op - DC cooper - encourage ambulation & incentive spirometry - d/w Dr. Kasandra Watson <Jay Slaughter - Last Filed: 11/07/17 12:10> Subjective - Subjective Subjective: Patient was seen and examined at the bedside. Agree with resident's note above. Objective - Vital Signs/Intake and Output Vital Signs (last 24 hours): Temp Pulse Resp BP Pulse Ox 98.4 F 68 20 142/82 95 11/07/17 07:31 11/07/17 07:31 11/07/17 07:31 11/07/17 07:31 11/07/17 07:31 Intake and Output: 11/07/17 11/07/17 06:59 18:59 Intake Total 1000 Output Total 810 250 Balance 190 -250 - Medications Medications: Current Medications Acetaminophen (Tylenol 325mg Tab) 650 mg PO Q6 PRN PRN Reason: Fever >100.4 F Enoxaparin Sodium (Lovenox) 40 mg SC DAILY [facility] PRN Reason: Protocol Hydromorphone HCl (Dilaudid) 1 mg IVP Q4 PRN PRN Reason: Pain, severe (8-10) Last Admin: 11/07/17 10:09 Dose: 1 mg Metronidazole (Flagyl 500mg/100ml Ns) 100 mls @ 100 mls/hr IVPB Q8H [facility] PRN Reason: Protocol Last Admin: 11/07/17 05:07 Dose: 100 mls/hr Piperacillin Sod/Tazobactam (Sod 3.375 gm/ Sodium Chloride) 100 mls @ 100 mls/ hr IVPB Q8@0100,0900,1700 [facility] PRN Reason: Protocol Last Admin: 11/07/17 08:34 Dose: 100 mls/hr Acetaminophen (Ofirmev) 100 mls @ 400 mls/hr IVPB Q6H [facility] PRN Reason: Protocol Stop: 11/07/17 12:31 Last Admin: 11/07/17 06:44 Dose: 400 mls/hr Vancomycin HCl 1 gm/ Sodium (Chloride) 250 mls @ 166.667 mls/hr IVPB Q12@1000, 2200 [facility] PRN Reason: Protocol Last Admin: 11/07/17 10:01 Dose: 166.667 mls/hr Potassium Chloride/Dextrose/Sod Cl (Potassium Chl 20 Meq In D5-1/2ns) 1,000 mls @ 125 mls/hr IV .Q8H [facility] Stop: 11/08/17 09:15 Last Admin: 11/07/17 10:35 Dose: 125 mls/hr Ondansetron HCl (Zofran Inj) 4 mg IVP Q4 PRN PRN Reason: Nausea/Vomiting Last Admin: 11/06/17 08:13 Dose: 4 mg Oxycodone/Acetaminophen (Percocet 5/325 Mg Tab) 1 tab PO Q4 PRN PRN Reason: Pain, Mild (1-3) Stop: 11/09/17 15:12 Pantoprazole Sodium (Protonix Inj) 40 mg IVP DAILY [facility] Last Admin: 11/07/17 08:36 Dose: 40 mg Zolpidem Tartrate (Ambien) 5 mg PO HS PRN PRN Reason: Insomnia Last Admin: 11/05/17 23:33 Dose: 5 mg - Labs Labs: 11/07/17 06:20 11/07/17 06:20 PT 17.2 Seconds (9.8-13.1) H 11/06/17 06:00 INR 1.5 11/06/17 06:00 APTT 32.7 Seconds (25.6-37.1) 11/06/17 06:00 Assessment and Plan - Assessment and Plan (Free Text) Plan: - Start clear liquid diet - pain control - IV fluids - Insentive spirometry - Continue antibiotics - DVT ppx - Out of bed and ambulate - Repeat labs in am - Will follow
[2017-11-07] MEDS: Potassium Ch 20mEq in D5-1/2NS 1,000 ML IV SCH ×2 (10:35→16:41)
[2017-11-07 14:02] VITALS: BMI 26.6
[2017-11-07] MEDS: Enoxaparin 40 mg Syringe SC SCH (16:40)
--- NOTE | 2017-11-07 20:44 | CP.PCM.PN ---
Subjective - Date & Time of Evaluation Date of Evaluation: 11/07/17 Time of Evaluation: 20:44 - Subjective Subjective: pt doing well no pain fcn d bowel sounds ouder pt is pod 1 middleton and bowel resection bw noted case dc with surgery Objective - Vital Signs/Intake and Output Vital Signs (last 24 hours): Temp Pulse Resp BP Pulse Ox 98.5 F 66 18 147/81 95 11/07/17 16:15 11/07/17 16:15 11/07/17 16:15 11/07/17 16:15 11/07/17 16:15 Intake and Output: 11/07/17 11/08/17 18:59 06:59 Intake Total 1500 Output Total 670 Balance 830 - Medications Medications: Current Medications Acetaminophen (Tylenol 325mg Tab) 650 mg PO Q6 PRN PRN Reason: Fever >100.4 F Enoxaparin Sodium (Lovenox) 40 mg SC DAILY [facility] PRN Reason: Protocol Last Admin: 11/07/17 16:40 Dose: 40 mg Hydromorphone HCl (Dilaudid) 1 mg IVP Q4 PRN PRN Reason: Pain, severe (8-10) Last Admin: 11/07/17 20:17 Dose: 1 mg Metronidazole (Flagyl 500mg/100ml Ns) 100 mls @ 100 mls/hr IVPB Q8H [facility] PRN Reason: Protocol Last Admin: 11/07/17 20:20 Dose: 100 mls/hr Piperacillin Sod/Tazobactam (Sod 3.375 gm/ Sodium Chloride) 100 mls @ 100 mls/ hr IVPB Q8@0100,0900,1700 [facility] PRN Reason: Protocol Last Admin: 11/07/17 16:39 Dose: 100 mls/hr Vancomycin HCl 1 gm/ Sodium (Chloride) 250 mls @ 166.667 mls/hr IVPB Q12@1000, 2200 [facility] PRN Reason: Protocol Last Admin: 11/07/17 10:01 Dose: 166.667 mls/hr Potassium Chloride/Dextrose/Sod Cl (Potassium Chl 20 Meq In D5-1/2ns) 1,000 mls @ 125 mls/hr IV .Q8H [facility] Stop: 11/08/17 09:15 Last Admin: 11/07/17 16:41 Dose: 125 mls/hr Ondansetron HCl (Zofran Inj) 4 mg IVP Q4 PRN PRN Reason: Nausea/Vomiting Last Admin: 11/06/17 08:13 Dose: 4 mg Oxycodone/Acetaminophen (Percocet 5/325 Mg Tab) 1 tab PO Q4 PRN PRN Reason: Pain, Mild (1-3) Stop: 11/09/17 15:12 Pantoprazole Sodium (Protonix Inj) 40 mg IVP DAILY [facility] Last Admin: 11/07/17 08:36 Dose: 40 mg Zolpidem Tartrate (Ambien) 5 mg PO HS PRN PRN Reason: Insomnia Last Admin: 11/05/17 23:33 Dose: 5 mg - Labs Labs: 11/07/17 06:20 11/07/17 06:20 PT 17.2 Seconds (9.8-13.1) H 11/06/17 06:00 INR 1.5 11/06/17 06:00 APTT 32.7 Seconds (25.6-37.1) 11/06/17 06:00 - Constitutional Appears: Well, Non-toxic, No Acute Distress - Head Exam Head Exam: ATRAUMATIC, NORMAL INSPECTION, NORMOCEPHALIC - Eye Exam Eye Exam: EOMI, Normal appearance, PERRL Pupil Exam: NORMAL ACCOMODATION, PERRL - ENT Exam ENT Exam: Mucous Membranes Moist, Normal Exam - Neck Exam Neck Exam: Full ROM, Normal Inspection. absent: Lymphadenopathy - Respiratory Exam Respiratory Exam: Clear to Ausculation Bilateral, NORMAL BREATHING PATTERN - Cardiovascular Exam Cardiovascular Exam: REGULAR RHYTHM, RRR, +S1, +S2. absent: Murmur - GI/Abdominal Exam GI & Abdominal Exam: Distended, Soft, Tenderness, Normal Bowel Sounds - Extremities Exam Extremities Exam: Full ROM, Normal Capillary Refill, Normal Inspection. absent : Joint Swelling, Pedal Edema - Back Exam Back Exam: NORMAL INSPECTION - Neurological Exam Neurological Exam: Alert, Awake, CN II-XII Intact, Normal Gait, Oriented x3 - Psychiatric Exam Psychiatric exam: Normal Affect, Normal Mood - Skin Skin Exam: Dry, Intact, Normal Color, Warm Assessment and Plan (1) Diverticulitis of colon with perforation Status: Acute (2) DVT prophylaxis Status: Acute - Assessment and Plan (Free Text) Assessment: (1) Diverticulitis of colon with perforation Assessment & Plan: cont anbx, cont all consults pain control npo, ivf w/ kcl s/p hartmanna nd bowel resection, doing well. ostomy care and education Status: Acute (2) DVT prophylaxis Assessment & Plan: scd nad ae hose lovenox Status: Acute [id number] added to lr, cont ot monitor
[2017-11-08] MEDS: Piperacillin/Tazobact 3.375 GM in Sodium Chloride 0.9% 100 ML IVPB SCH ×3 (01:19→17:17)
[2017-11-08] MEDS: Potassium Ch 20mEq in D5-1/2NS 1,000 ML IV SCH (01:50)
[2017-11-08] MEDS: metroNIDAZOLE 500mg/100ml NS 100 ML IVPB SCH ×3 (05:39→20:11)
[2017-11-08 08:12] LABS: BLOOD UREA NITROGEN 11 mg/dl (9-20)
[2017-11-08 08:15] LABS: ALBUMIN 2.6 g/dL (3.5-5.0); ALT/SGPT 31 U/L (21-72); AST/SGOT 23 U/L (17-59); CALCIUM 7.9 mg/dL (8.4-10.2); GFR NON-AFRICAN AMERICAN > 60
[2017-11-08 08:32] LABS: BASO % 0.2 % (0.0-2.0); EOS % 0.1 % (0.0-4.0); HEMOGLOBIN 10.4 g/dL (12.0-18.0); LYMPH # 0.9 K/uL (1.0-4.3); MEAN CELL VOLUME 87.7 fl (80.0-94.0); MEAN CORPUSCULAR HGB CONC 34.1 g/dL (33.0-37.0); MEAN PLATELET VOLUME 6.8 fl (7.2-11.7); MONO # 0.9 K/uL (0.0-0.8); MONO % 6.1 % (0.0-10.0); NEUT # 13.1 K/uL (1.8-7.0); NEUT % 87.6 % (50.0-75.0); NRBC % 0.1 % (0.0-0.0); PLATELET COUNT 465 K/uL (130-400); RBC 3.49 Mil/uL (4.40-5.90); RED CELL DISTRIBUTION WIDTH 13.8 % (11.5-14.5)
[2017-11-08] MEDS ORDERED: Potassium Chloride 20 mEq/15 ml LIQ UD PO ONE (08:45)
[2017-11-08] MEDS ORDERED: Potassium Ch 20mEq in D5-1/2NS 1,000 ML IV SCH (08:47)
--- NOTE | 2017-11-08 08:48 | CP.PCM.PN ---
Subjective - Date & Time of Evaluation Date of Evaluation: 11/08/17 Time of Evaluation: 08:42 - Subjective Subjective: Surgery: Dr. Rueda Pt seen and examined. No acute overnight events. Pt is POD#2 from [place]'s, states he feels well and his pain is well controlled. He admits to feeling gurgling in his belly but hasn't had any flatus or BM in the ostomy yet. Pt is ambulating around the halls without difficulty. Tolerating CLD without nausea/ vomiting. Denies fevers/chills. Objective - Vital Signs/Intake and Output Vital Signs (last 24 hours): Temp Pulse Resp BP Pulse Ox 97.6 F 75 20 127/81 95 11/08/17 08:23 11/08/17 08:23 11/08/17 08:23 11/08/17 08:23 11/08/17 08:23 Intake and Output: 11/08/17 11/08/17 06:59 18:59 Intake Total 1620 Output Total 1200 Balance 420 - Medications Medications: Current Medications Acetaminophen (Tylenol 325mg Tab) 650 mg PO Q6 PRN PRN Reason: Fever >100.4 F Enoxaparin Sodium (Lovenox) 40 mg SC DAILY [facility] PRN Reason: Protocol Last Admin: 11/07/17 16:40 Dose: 40 mg Hydromorphone HCl (Dilaudid) 1 mg IVP Q4 PRN PRN Reason: Pain, severe (8-10) Last Admin: 11/08/17 05:38 Dose: 1 mg Metronidazole (Flagyl 500mg/100ml Ns) 100 mls @ 100 mls/hr IVPB Q8H [facility] PRN Reason: Protocol Last Admin: 11/08/17 05:39 Dose: 100 mls/hr Piperacillin Sod/Tazobactam (Sod 3.375 gm/ Sodium Chloride) 100 mls @ 100 mls/ hr IVPB Q8@0100,0900,1700 [facility] PRN Reason: Protocol Last Admin: 11/08/17 08:23 Dose: 100 mls/hr Vancomycin HCl 1 gm/ Sodium (Chloride) 250 mls @ 166.667 mls/hr IVPB Q12@1000, 2200 [facility] PRN Reason: Protocol Last Admin: 11/07/17 21:41 Dose: 166.667 mls/hr Potassium Chloride/Dextrose/Sod Cl (Potassium Chl 20 Meq In D5-1/2ns) 1,000 mls @ 125 mls/hr IV .Q8H [facility] Stop: 11/08/17 09:15 Last Admin: 11/08/17 01:50 Dose: 125 mls/hr Ondansetron HCl (Zofran Inj) 4 mg IVP Q4 PRN PRN Reason: Nausea/Vomiting Last Admin: 11/08/17 05:47 Dose: 4 mg Oxycodone/Acetaminophen (Percocet 5/325 Mg Tab) 1 tab PO Q4 PRN PRN Reason: Pain, Mild (1-3) Stop: 11/09/17 15:12 Pantoprazole Sodium (Protonix Inj) 40 mg IVP DAILY [facility] Last Admin: 11/07/17 08:36 Dose: 40 mg Zolpidem Tartrate (Ambien) 5 mg PO HS PRN PRN Reason: Insomnia Last Admin: 11/07/17 22:38 Dose: 5 mg - Labs Labs: 11/08/17 05:30 11/08/17 05:30 PT 17.2 Seconds (9.8-13.1) H 11/06/17 06:00 INR 1.5 11/06/17 06:00 APTT 32.7 Seconds (25.6-37.1) 11/06/17 06:00 - Constitutional Appears: Well, No Acute Distress - Head Exam Head Exam: ATRAUMATIC, NORMOCEPHALIC - Eye Exam Eye Exam: Normal appearance - ENT Exam ENT Exam: Mucous Membranes Moist - Respiratory Exam Respiratory Exam: NORMAL BREATHING PATTERN - Cardiovascular Exam Cardiovascular Exam: RRR - GI/Abdominal Exam GI & Abdominal Exam: Distended, Soft, Tenderness (around midline incision, clean /dry with steffany in place. Ostomy LLQ with serosang liquid in bag, pink/patent ). absent: Guarding, Rebound - Extremities Exam Extremities Exam: absent: Calf Tenderness - Neurological Exam Neurological Exam: Alert, Awake, Oriented x3 Assessment and Plan - Assessment and Plan (Free Text) Assessment: 61M s/p [place]'s for perforated diverticulitis; POD#2 Plan: - cont to monitor bowel function - will advance diet slowly as tolerated - cont IV ABX - cont ambulation & incentive spirometry - further recs per Dr. Mohit Watson
[2017-11-08 09:44] LABS: LYMPHOCYTE 1 % (20-50); MONOCYTE 3 % (0-10); NEUTROPHIL 96 % (42-75); PLATELET ESTIMATE NORMAL (NORMAL); TOTAL CELLS COUNTED 100
[2017-11-08 09:45] LABS: ANISOCYTOSIS SLIGHT; OVALOCYTES SLIGHT; POIKILOCYTOSIS SLIGHT
[2017-11-08] MEDS: Enoxaparin 40 mg Syringe SC SCH (10:18)
--- NOTE | 2017-11-08 13:54 | CP.PCM.PN ---
Subjective - Date & Time of Evaluation Date of Evaluation: 11/08/17 Time of Evaluation: 13:53 - Subjective Subjective: pt c/o gas, more discomft tahn yesterday. no f/c, n/v/d. "?? passing flatus into ostomy bw noted. lr w/ kcl reordered. surgical notes appriciated. Objective - Vital Signs/Intake and Output Vital Signs (last 24 hours): Temp Pulse Resp BP Pulse Ox 97.6 F 75 20 127/81 95 11/08/17 08:23 11/08/17 08:23 11/08/17 08:23 11/08/17 08:23 11/08/17 08:23 Intake and Output: 11/08/17 11/08/17 06:59 18:59 Intake Total 1620 Output Total 1200 Balance 420 - Medications Medications: Current Medications Acetaminophen (Tylenol 325mg Tab) 650 mg PO Q6 PRN PRN Reason: Fever >100.4 F Enoxaparin Sodium (Lovenox) 40 mg SC DAILY [facility] PRN Reason: Protocol Last Admin: 11/08/17 10:18 Dose: 40 mg Hydromorphone HCl (Dilaudid) 1 mg IVP Q4 PRN PRN Reason: Pain, severe (8-10) Last Admin: 11/08/17 10:21 Dose: 1 mg Metronidazole (Flagyl 500mg/100ml Ns) 100 mls @ 100 mls/hr IVPB Q8H [facility] PRN Reason: Protocol Last Admin: 11/08/17 13:26 Dose: 100 mls/hr Piperacillin Sod/Tazobactam (Sod 3.375 gm/ Sodium Chloride) 100 mls @ 100 mls/ hr IVPB Q8@0100,0900,1700 [facility] PRN Reason: Protocol Last Admin: 11/08/17 08:23 Dose: 100 mls/hr Vancomycin HCl 1 gm/ Sodium (Chloride) 250 mls @ 166.667 mls/hr IVPB Q12@1000, 2200 [facility] PRN Reason: Protocol Last Admin: 11/08/17 10:18 Dose: 166.667 mls/hr Ondansetron HCl (Zofran Inj) 4 mg IVP Q4 PRN PRN Reason: Nausea/Vomiting Last Admin: 11/08/17 05:47 Dose: 4 mg Oxycodone/Acetaminophen (Percocet 5/325 Mg Tab) 1 tab PO Q4 PRN PRN Reason: Pain, Mild (1-3) Stop: 11/09/17 15:12 Pantoprazole Sodium (Protonix Inj) 40 mg IVP DAILY [facility] Last Admin: 11/08/17 10:18 Dose: 40 mg Zolpidem Tartrate (Ambien) 5 mg PO HS PRN PRN Reason: Insomnia Last Admin: 11/07/17 22:38 Dose: 5 mg - Labs Labs: 11/08/17 05:30 11/08/17 05:30 PT 17.2 Seconds (9.8-13.1) H 11/06/17 06:00 INR 1.5 11/06/17 06:00 APTT 32.7 Seconds (25.6-37.1) 11/06/17 06:00 Assessment and Plan (1) Diverticulitis of colon with perforation Status: Acute (2) DVT prophylaxis Status: Acute - Assessment and Plan (Free Text) Assessment: (1) Diverticulitis of colon with perforation Assessment & Plan: cont anbx, cont all consults pain control npo, ivf w/ kcl s/p hartmanna nd bowel resection, doing well. ostomy care and education Status: Acute (2) DVT prophylaxis Assessment & Plan: scd nad ae hose lovenox Status: Acute [id number] added to lr, cont ot monitor
[2017-11-08] MEDS: Potassium Chloride 20 MEQ in Lactated Ringer's 1,000 ML IV SCH (18:23)
[2017-11-09] MEDS: Potassium Chloride 20 MEQ in Lactated Ringer's 1,000 ML IV SCH ×2 (00:06→18:19)
[2017-11-09] MEDS: Piperacillin/Tazobact 3.375 GM in Sodium Chloride 0.9% 100 ML IVPB SCH ×3 (00:35→16:35)
[2017-11-09] MEDS: metroNIDAZOLE 500mg/100ml NS 100 ML IVPB SCH ×3 (04:39→20:35)
[2017-11-09 07:06] LABS: BASO % 0.2 % (0.0-2.0); EOS # 0.1 K/uL (0.0-0.7); EOS % 0.5 % (0.0-4.0); HEMOGLOBIN 10.4 g/dL (12.0-18.0); LYMPH # 0.6 K/uL (1.0-4.3); LYMPH % 4.9 % (20.0-40.0); MEAN CELL VOLUME 86.4 fl (80.0-94.0); MEAN CORPUSCULAR HEMOGLOBIN 29.6 pg (27.0-31.0); MEAN CORPUSCULAR HGB CONC 34.3 g/dL (33.0-37.0); MEAN PLATELET VOLUME 6.5 fl (7.2-11.7); MONO # 0.8 K/uL (0.0-0.8); MONO % 6.5 % (0.0-10.0); NEUT # 11.1 K/uL (1.8-7.0); NEUT % 87.9 % (50.0-75.0); RBC 3.5 Mil/uL (4.40-5.90); RED CELL DISTRIBUTION WIDTH 13.9 % (11.5-14.5); WHITE BLOOD COUNT 12.6 K/uL (4.8-10.8)
[2017-11-09 07:17] LABS: ALB/GLOB RATIO 0.9 (1.0-2.1); ALBUMIN 2.5 g/dL (3.5-5.0); ALT/SGPT 29 U/L (21-72); AST/SGOT 37 U/L (17-59); BLOOD UREA NITROGEN 6 mg/dl (9-20); CALCIUM 7.8 mg/dL (8.4-10.2); GFR NON-AFRICAN AMERICAN > 60
[2017-11-09] MEDS: Enoxaparin 40 mg Syringe SC SCH (08:20)
--- NOTE | 2017-11-09 09:23 | CP.PCM.PN ---
Subjective - Date & Time of Evaluation Date of Evaluation: 11/09/17 Time of Evaluation: 09:19 - Subjective Subjective: Surgery: Dr. Rueda Pt seen and examined. Resting comfortably in bed. No acute events overnight. Pain controlled. Tolerating CLD. No N/V. Ambulating without difficulty. Objective - Vital Signs/Intake and Output Vital Signs (last 24 hours): Temp Pulse Resp BP Pulse Ox 98.5 F 77 20 145/84 94 L 11/09/17 08:14 11/09/17 08:14 11/09/17 08:14 11/09/17 08:14 11/09/17 08:14 Intake and Output: 11/09/17 11/09/17 06:59 18:59 Intake Total 1200 Output Total 1480 Balance -280 - Medications Medications: Current Medications Acetaminophen (Tylenol 325mg Tab) 650 mg PO Q6 PRN PRN Reason: Fever >100.4 F Enoxaparin Sodium (Lovenox) 40 mg SC DAILY [facility] PRN Reason: Protocol Last Admin: 11/09/17 08:20 Dose: 40 mg Hydromorphone HCl (Dilaudid) 1 mg IVP Q4 PRN PRN Reason: Pain, severe (8-10) Last Admin: 11/09/17 04:45 Dose: 1 mg Metronidazole (Flagyl 500mg/100ml Ns) 100 mls @ 100 mls/hr IVPB Q8H [facility] PRN Reason: Protocol Last Admin: 11/09/17 04:39 Dose: 100 mls/hr Piperacillin Sod/Tazobactam (Sod 3.375 gm/ Sodium Chloride) 100 mls @ 100 mls/ hr IVPB Q8@0100,0900,1700 [facility] PRN Reason: Protocol Last Admin: 11/09/17 08:21 Dose: 100 mls/hr Vancomycin HCl 1 gm/ Sodium (Chloride) 250 mls @ 166.667 mls/hr IVPB Q12@1000, 2200 [facility] PRN Reason: Protocol Last Admin: 11/08/17 21:31 Dose: 166.667 mls/hr Potassium Chloride 20 meq/ (Lactated Ringer's) 1,010 mls @ 100 mls/hr IV .Q10H6M [facility] Last Admin: 11/09/17 00:06 Dose: Not Given Ondansetron HCl (Zofran Inj) 4 mg IVP Q4 PRN PRN Reason: Nausea/Vomiting Last Admin: 11/09/17 04:52 Dose: 4 mg Oxycodone/Acetaminophen (Percocet 5/325 Mg Tab) 1 tab PO Q4 PRN PRN Reason: Pain, Mild (1-3) Stop: 11/09/17 15:12 Pantoprazole Sodium (Protonix Inj) 40 mg IVP DAILY [facility] Last Admin: 11/09/17 08:20 Dose: 40 mg Potassium Chloride (K-Dur 20 Meq Er Tab) 20 meq PO BID [facility] Stop: 11/09/17 17:01 Zolpidem Tartrate (Ambien) 5 mg PO HS PRN PRN Reason: Insomnia Last Admin: 11/07/17 22:38 Dose: 5 mg - Labs Labs: 11/09/17 05:30 11/09/17 05:30 PT 17.2 Seconds (9.8-13.1) H 11/06/17 06:00 INR 1.5 11/06/17 06:00 APTT 32.7 Seconds (25.6-37.1) 11/06/17 06:00 - Constitutional Appears: Non-toxic, No Acute Distress - Head Exam Head Exam: ATRAUMATIC, NORMOCEPHALIC - Eye Exam Eye Exam: EOMI - ENT Exam ENT Exam: Mucous Membranes Moist - Neck Exam Neck Exam: Full ROM - Respiratory Exam Respiratory Exam: NORMAL BREATHING PATTERN. absent: Accessory Muscle Use, Respiratory Distress - GI/Abdominal Exam GI & Abdominal Exam: Soft, Tenderness (sameer-incisional ). absent: Distended, Firm, Guarding, Rigid, Rebound Additional comments: midline incision, C/D/I w. steffany Stoma pink and patent - Extremities Exam Extremities Exam: absent: Calf Tenderness, Pedal Edema - Neurological Exam Neurological Exam: Alert, Awake, Oriented x3 - Psychiatric Exam Psychiatric exam: Normal Affect, Normal Mood Assessment and Plan - Assessment and Plan (Free Text) Assessment: 61M s/p [place]'s for perforated diverticulitis; POD#3 -Stoma: scant serous drainage noted -c/w clear liquid diet -replete K -pain management -Monitor bowel fxn -encourage ambulation -DVT ppx -will d/w attending Iris PGY4
[2017-11-09] MEDS: Potassium Chloride 20 mEq ER Tab PO SCH ×2 (09:50→16:34)
[2017-11-09] MEDS ORDERED: Simethicone 80 mg Chewtab PO PRN (20:01)
--- NOTE | 2017-11-09 21:31 | CP.PCM.PN ---
Subjective - Date & Time of Evaluation Date of Evaluation: 11/09/17 Time of Evaluation: 21:28 - Subjective Subjective: pt doing well, diana liquids, surgical notes appriciated. no f/c, n/v/d. less pain /distention today. bw noted. wbc improving, k remains low. Objective - Vital Signs/Intake and Output Vital Signs (last 24 hours): Temp Pulse Resp BP Pulse Ox 99.3 F 70 18 134/78 94 L 11/09/17 16:12 11/09/17 16:12 11/09/17 16:12 11/09/17 16:12 11/09/17 16:12 Intake and Output: 11/09/17 11/10/17 18:59 06:59 Intake Total 1200 Output Total 1480 50 Balance -280 -50 - Medications Medications: Current Medications Acetaminophen (Tylenol 325mg Tab) 650 mg PO Q6 PRN PRN Reason: Fever >100.4 F Enoxaparin Sodium (Lovenox) 40 mg SC DAILY [facility] PRN Reason: Protocol Last Admin: 11/09/17 08:20 Dose: 40 mg Hydromorphone HCl (Dilaudid) 0.5 mg IVP Q4H PRN PRN Reason: Pain, moderate (4-7) Last Admin: 11/09/17 20:36 Dose: 0.5 mg Metronidazole (Flagyl 500mg/100ml Ns) 100 mls @ 100 mls/hr IVPB Q8H [facility] PRN Reason: Protocol Last Admin: 11/09/17 20:35 Dose: 100 mls/hr Piperacillin Sod/Tazobactam (Sod 3.375 gm/ Sodium Chloride) 100 mls @ 100 mls/ hr IVPB Q8@0100,0900,1700 [facility] PRN Reason: Protocol Last Admin: 11/09/17 16:35 Dose: 100 mls/hr Vancomycin HCl 1 gm/ Sodium (Chloride) 250 mls @ 166.667 mls/hr IVPB Q12@1000, 2200 [facility] PRN Reason: Protocol Last Admin: 11/09/17 09:51 Dose: 166.667 mls/hr Potassium Chloride 20 meq/ (Lactated Ringer's) 1,010 mls @ 100 mls/hr IV .Q10H6M [facility] Last Admin: 09/09/18 18:19 Dose: 100 mls/hr Ondansetron HCl (Zofran Inj) 4 mg IVP Q4 PRN PRN Reason: Nausea/Vomiting Last Admin: 11/09/17 10:00 Dose: 4 mg Pantoprazole Sodium (Protonix Inj) 40 mg IVP DAILY [facility] Last Admin: 11/09/17 08:20 Dose: 40 mg Simethicone (Mylicon Chew Tab) 80 mg PO TID PRN PRN Reason: Flatulence Last Admin: 11/09/17 20:35 Dose: 80 mg Zolpidem Tartrate (Ambien) 5 mg PO HS PRN PRN Reason: Insomnia Last Admin: 11/07/17 22:38 Dose: 5 mg - Labs Labs: 11/09/17 05:30 11/09/17 05:30 PT 17.2 Seconds (9.8-13.1) H 11/06/17 06:00 INR 1.5 11/06/17 06:00 APTT 32.7 Seconds (25.6-37.1) 11/06/17 06:00 - Constitutional Appears: Well, Non-toxic, No Acute Distress - Head Exam Head Exam: ATRAUMATIC, NORMAL INSPECTION, NORMOCEPHALIC - Eye Exam Eye Exam: EOMI, Normal appearance, PERRL Pupil Exam: NORMAL ACCOMODATION, PERRL - ENT Exam ENT Exam: Mucous Membranes Moist, Normal Exam - Neck Exam Neck Exam: Full ROM, Normal Inspection. absent: Lymphadenopathy - Respiratory Exam Respiratory Exam: Clear to Ausculation Bilateral, NORMAL BREATHING PATTERN - Cardiovascular Exam Cardiovascular Exam: REGULAR RHYTHM, RRR, +S1, +S2. absent: Murmur - GI/Abdominal Exam GI & Abdominal Exam: Distended, Soft, Tenderness, Normal Bowel Sounds - Extremities Exam Extremities Exam: Full ROM, Normal Capillary Refill, Normal Inspection. absent : Joint Swelling, Pedal Edema - Back Exam Back Exam: NORMAL INSPECTION - Neurological Exam Neurological Exam: Alert, Awake, CN II-XII Intact, Normal Gait, Oriented x3 - Psychiatric Exam Psychiatric exam: Normal Affect, Normal Mood - Skin Skin Exam: Dry, Intact, Normal Color, Warm Assessment and Plan (1) Hypokalemia Assessment & Plan: cont lr w/ kcl, recheck in am, po k if cleared by surgery Status: Acute (2) DVT prophylaxis Assessment & Plan: scd and ae hose lovenox Status: Acute (3) Diverticulitis of colon with perforation Assessment & Plan: post op [place]/bowel resection cont id, surgical f/u pain control liquid diet, po as diana zosyn, vanco, flagyl ivf w/ kcl Status: Acute
[2017-11-10] MEDS: Potassium Chloride 20 MEQ in Lactated Ringer's 1,000 ML IV SCH (00:25)
[2017-11-10] MEDS: Piperacillin/Tazobact 3.375 GM in Sodium Chloride 0.9% 100 ML IVPB SCH ×2 (00:41→09:17)
[2017-11-10] MEDS: metroNIDAZOLE 500mg/100ml NS 100 ML IVPB SCH ×3 (05:21→20:34)
[2017-11-10] MEDS: Enoxaparin 40 mg Syringe SC SCH (09:19)
[2017-11-10 09:57] LABS: BASO % 0.3 % (0.0-2.0); EOS # 0.1 K/uL (0.0-0.7); EOS % 0.7 % (0.0-4.0); HEMOGLOBIN 10.2 g/dL (12.0-18.0); LYMPH # 0.6 K/uL (1.0-4.3); MEAN CELL VOLUME 86.4 fl (80.0-94.0); MEAN CORPUSCULAR HEMOGLOBIN 30.1 pg (27.0-31.0); MEAN CORPUSCULAR HGB CONC 34.9 g/dL (33.0-37.0); MEAN PLATELET VOLUME 6.5 fl (7.2-11.7); MONO # 0.8 K/uL (0.0-0.8); MONO % 6.2 % (0.0-10.0); NEUT # 10.6 K/uL (1.8-7.0); NEUT % 87.8 % (50.0-75.0); NRBC % 0.1 % (0.0-0.0); RBC 3.39 Mil/uL (4.40-5.90); RED CELL DISTRIBUTION WIDTH 13.6 % (11.5-14.5); WHITE BLOOD COUNT 12.1 K/uL (4.8-10.8)
[2017-11-10 10:06] LABS: ALBUMIN 2.5 g/dL (3.5-5.0); ALT/SGPT 24 U/L (21-72); AST/SGOT 34 U/L (17-59); BLOOD UREA NITROGEN 7 mg/dl (9-20); GFR NON-AFRICAN AMERICAN > 60
--- NOTE | 2017-11-10 10:08 | CP.PCM.PN ---
Subjective - Date & Time of Evaluation Date of Evaluation: 11/10/17 Time of Evaluation: 10:01 - Subjective Subjective: General surgery Pt seen and examined this AM. He reports having increased pain at surgical incision site. (+) flatus, described as "popping" sounds in colostomy bag. (- ) BM, (+) watery output from bag. Afebrile. Tolerating clear liquids. Labs and vitals noted. Pt continues with Hypokalemia, today's labs pending. Wound culture: Gram (-) rods, no sensitivities available yet. PE Gen: Pt laying in bed in NAD Skin: warm and dry, (see abd) Cardio: s1s2 RRR Lungs: CTA bilaterally Abd: Soft, mildly distended. Stapled surgical incision with (+) surrounding erythema, (+) tenderness surrounding incision, (-) drainage. (+) Colostomy bag with (+) flatus, (+) serosanguinous fluid, (-) stool, Stoma is pink. Extr: (+) 1-2+ pitting edema of bilateraly LE extending to upper thighs. (-) calf tenderness bilaterally A/P POD 4 [place]'s for perforated diverticulitis Monitor surgical incision Continue antibiotics F/U on sensitivities of wound culture Keep on clear liquids for now Stop IVFs as pt is consuming 100% of clear liquid tray and has pitting edema. Pt also (+) >4 liters according to I/O's since post op. F/U on today's labs, if K needs to be repleted pt prefers PO tablets vs suspension Objective - Vital Signs/Intake and Output Vital Signs (last 24 hours): Temp Pulse Resp BP Pulse Ox 98.8 F 74 20 148/83 95 11/10/17 07:43 11/10/17 07:43 11/10/17 07:43 11/10/17 07:43 11/10/17 07:43 Intake and Output: 11/10/17 11/10/17 06:59 18:59 Intake Total 1320 Output Total 50 1200 Balance -50 120 - Medications Medications: Current Medications Acetaminophen (Tylenol 325mg Tab) 650 mg PO Q6 PRN PRN Reason: Fever >100.4 F Enoxaparin Sodium (Lovenox) 40 mg SC DAILY [facility] PRN Reason: Protocol Last Admin: 11/10/17 09:19 Dose: 40 mg Hydromorphone HCl (Dilaudid) 0.5 mg IVP Q4H PRN PRN Reason: Pain, moderate (4-7) Last Admin: 11/10/17 05:57 Dose: 0.5 mg Metronidazole (Flagyl 500mg/100ml Ns) 100 mls @ 100 mls/hr IVPB Q8H [facility] PRN Reason: Protocol Last Admin: 11/10/17 05:21 Dose: 100 mls/hr Piperacillin Sod/Tazobactam (Sod 3.375 gm/ Sodium Chloride) 100 mls @ 100 mls/ hr IVPB Q8@0100,0900,1700 [facility] PRN Reason: Protocol Last Admin: 11/10/17 09:17 Dose: 100 mls/hr Vancomycin HCl 1 gm/ Sodium (Chloride) 250 mls @ 166.667 mls/hr IVPB Q12@1000, 2200 [facility] PRN Reason: Protocol Last Admin: 11/10/17 09:21 Dose: 166.667 mls/hr Potassium Chloride 20 meq/ (Lactated Ringer's) 1,010 mls @ 100 mls/hr IV .Q10H6M [facility] Last Admin: 11/10/17 00:25 Dose: Not Given Ondansetron HCl (Zofran Inj) 4 mg IVP Q4 PRN PRN Reason: Nausea/Vomiting Last Admin: 11/09/17 10:00 Dose: 4 mg Pantoprazole Sodium (Protonix Inj) 40 mg IVP DAILY [facility] Last Admin: 11/10/17 09:20 Dose: 40 mg Simethicone (Mylicon Chew Tab) 80 mg PO TID PRN PRN Reason: Flatulence Last Admin: 11/09/17 20:35 Dose: 80 mg Zolpidem Tartrate (Ambien) 5 mg PO HS PRN PRN Reason: Insomnia Last Admin: 11/07/17 22:38 Dose: 5 mg - Labs Labs: 11/09/17 05:30 11/09/17 05:30 PT 17.2 Seconds (9.8-13.1) H 11/06/17 06:00 INR 1.5 11/06/17 06:00 APTT 32.7 Seconds (25.6-37.1) 11/06/17 06:00
[2017-11-10] MEDS ORDERED: Potassium Chloride 20 mEq ER Tab PO ONE (10:10)
--- NOTE | 2017-11-10 16:08 | CP.PCM.PN ---
Subjective - Date & Time of Evaluation Date of Evaluation: 11/10/17 Time of Evaluation: 16:00 - Subjective Subjective: I D NOTE PATIENT IS POST OP,HAS COLOSTOMY INTRAOPERATIVE CULTURES GREW ESBL POS ECOLI WHICH IS SENSITIVE TO ZOSYN BUT HAS HIGH MICs i have switched to meropenem WHICH HAS EXCELLENT MICs DISCUSSED c PATIENT ,,DAUGHTER ,AND FAMILY Objective - Vital Signs/Intake and Output Vital Signs (last 24 hours): Temp Pulse Resp BP Pulse Ox 98.8 F 74 18 148/83 95 11/10/17 14:56 11/10/17 14:56 11/10/17 14:56 11/10/17 14:56 11/10/17 14:56 Intake and Output: 11/10/17 11/10/17 06:59 18:59 Intake Total 1320 Output Total 50 1200 Balance -50 120 - Medications Medications: Current Medications Acetaminophen (Tylenol 325mg Tab) 650 mg PO Q6 PRN PRN Reason: Fever >100.4 F Enoxaparin Sodium (Lovenox) 40 mg SC DAILY [facility] PRN Reason: Protocol Last Admin: 11/10/17 09:19 Dose: 40 mg Hydromorphone HCl (Dilaudid) 0.5 mg IVP Q4H PRN PRN Reason: Pain, moderate (4-7) Last Admin: 11/10/17 14:13 Dose: 0.5 mg Metronidazole (Flagyl 500mg/100ml Ns) 100 mls @ 100 mls/hr IVPB Q8H [facility] PRN Reason: Protocol Last Admin: 11/10/17 12:55 Dose: 100 mls/hr Vancomycin HCl 1 gm/ Sodium (Chloride) 250 mls @ 166.667 mls/hr IVPB Q12@1000, 2200 [facility] PRN Reason: Protocol Last Admin: 11/10/17 09:21 Dose: 166.667 mls/hr Meropenem 1 gm/ Sodium (Chloride) 100 mls @ 100 mls/hr IVPB Q8 [facility] PRN Reason: Protocol Ondansetron HCl (Zofran Inj) 4 mg IVP Q4 PRN PRN Reason: Nausea/Vomiting Last Admin: 11/09/17 10:00 Dose: 4 mg Pantoprazole Sodium (Protonix Inj) 40 mg IVP DAILY [facility] Last Admin: 11/10/17 09:20 Dose: 40 mg Potassium Chloride (K-Dur 20 Meq Er Tab) 20 meq PO DAILY [facility] Simethicone (Mylicon Chew Tab) 80 mg PO TID PRN PRN Reason: Flatulence Last Admin: 11/09/17 20:35 Dose: 80 mg Zolpidem Tartrate (Ambien) 5 mg PO HS PRN PRN Reason: Insomnia Last Admin: 11/07/17 22:38 Dose: 5 mg - Labs Labs: 11/10/17 09:44 11/10/17 09:44 PT 17.2 Seconds (9.8-13.1) H 11/06/17 06:00 INR 1.5 11/06/17 06:00 APTT 32.7 Seconds (25.6-37.1) 11/06/17 06:00
--- NOTE | 2017-11-10 16:47 | CP.PCM.PN ---
Subjective - Date & Time of Evaluation Date of Evaluation: 11/10/17 Time of Evaluation: 16:46 - Subjective Subjective: doing well. no copmlaints, less tenderness, distention. on contact precautions for esbl c coli per id, ok for tcu on anbx, total 10 days of iv anbx may have picc as per id pt/ot to be ordered Objective - Vital Signs/Intake and Output Vital Signs (last 24 hours): Temp Pulse Resp BP Pulse Ox 98.5 F 71 18 151/81 H 94 L 11/10/17 16:06 11/10/17 16:06 11/10/17 16:06 11/10/17 16:06 11/10/17 16:06 Intake and Output: 11/10/17 11/10/17 06:59 18:59 Intake Total 1320 Output Total 50 1200 Balance -50 120 - Medications Medications: Current Medications Acetaminophen (Tylenol 325mg Tab) 650 mg PO Q6 PRN PRN Reason: Fever >100.4 F Enoxaparin Sodium (Lovenox) 40 mg SC DAILY [facility] PRN Reason: Protocol Last Admin: 11/10/17 09:19 Dose: 40 mg Hydromorphone HCl (Dilaudid) 0.5 mg IVP Q4H PRN PRN Reason: Pain, moderate (4-7) Last Admin: 11/10/17 14:13 Dose: 0.5 mg Metronidazole (Flagyl 500mg/100ml Ns) 100 mls @ 100 mls/hr IVPB Q8H [facility] PRN Reason: Protocol Last Admin: 11/10/17 12:55 Dose: 100 mls/hr Vancomycin HCl 1 gm/ Sodium (Chloride) 250 mls @ 166.667 mls/hr IVPB Q12@1000, 2200 [facility] PRN Reason: Protocol Last Admin: 11/10/17 09:21 Dose: 166.667 mls/hr Meropenem 1 gm/ Sodium (Chloride) 100 mls @ 100 mls/hr IVPB Q8 [facility] PRN Reason: Protocol Ondansetron HCl (Zofran Inj) 4 mg IVP Q4 PRN PRN Reason: Nausea/Vomiting Last Admin: 11/09/17 10:00 Dose: 4 mg Pantoprazole Sodium (Protonix Inj) 40 mg IVP DAILY [facility] Last Admin: 11/10/17 09:20 Dose: 40 mg Potassium Chloride (K-Dur 20 Meq Er Tab) 20 meq PO DAILY [facility] Simethicone (Mylicon Chew Tab) 80 mg PO TID PRN PRN Reason: Flatulence Last Admin: 11/09/17 20:35 Dose: 80 mg Zolpidem Tartrate (Ambien) 5 mg PO HS PRN PRN Reason: Insomnia Last Admin: 11/07/17 22:38 Dose: 5 mg - Labs Labs: 11/10/17 09:44 11/10/17 09:44 PT 17.2 Seconds (9.8-13.1) H 11/06/17 06:00 INR 1.5 11/06/17 06:00 APTT 32.7 Seconds (25.6-37.1) 11/06/17 06:00 - Constitutional Appears: Well, Non-toxic, No Acute Distress - Head Exam Head Exam: ATRAUMATIC, NORMAL INSPECTION, NORMOCEPHALIC - Eye Exam Eye Exam: EOMI, Normal appearance, PERRL Pupil Exam: NORMAL ACCOMODATION, PERRL - ENT Exam ENT Exam: Mucous Membranes Moist, Normal Exam - Neck Exam Neck Exam: Full ROM, Normal Inspection. absent: Lymphadenopathy - Respiratory Exam Respiratory Exam: Clear to Ausculation Bilateral, NORMAL BREATHING PATTERN - Cardiovascular Exam Cardiovascular Exam: REGULAR RHYTHM, RRR, +S1, +S2. absent: Murmur - GI/Abdominal Exam GI & Abdominal Exam: Distended, Soft, Tenderness, Normal Bowel Sounds - Extremities Exam Extremities Exam: Full ROM, Normal Capillary Refill, Normal Inspection. absent : Joint Swelling, Pedal Edema - Back Exam Back Exam: NORMAL INSPECTION - Neurological Exam Neurological Exam: Alert, Awake, CN II-XII Intact, Normal Gait, Oriented x3 - Psychiatric Exam Psychiatric exam: Normal Affect, Normal Mood - Skin Skin Exam: Dry, Intact, Normal Color, Warm Assessment and Plan (1) Diverticulitis of colon with perforation Status: Acute (2) DVT prophylaxis Status: Acute - Assessment and Plan (Free Text) Assessment: (1) Diverticulitis of colon with perforation Assessment & Plan: cont anbx, cont all consults pain control liquid, adv as diana/per surg ivf w/ kcl s/p m[place] and bowel resection, doing well. ostomy care and education esbl ecoli in wound c/s-contact ordered Status: Acute (2) DVT prophylaxis Assessment & Plan: scd nad ae hose lovenox Status: Acute [id number] added to lr, cont to monitor
[2017-11-10] MEDS: Meropenem 1 GM in Sodium Chloride 0.9% 100 ML IVPB SCH (17:28)
[2017-11-11] MEDS: Meropenem 1 GM in Sodium Chloride 0.9% 100 ML IVPB SCH ×3 (00:43→18:17)
[2017-11-11] MEDS: metroNIDAZOLE 500mg/100ml NS 100 ML IVPB SCH ×3 (05:16→21:02)
[2017-11-11 06:15] LABS: HEMOGLOBIN 10.4 g/dL (12.0-18.0); MEAN CELL VOLUME 87.2 fl (80.0-94.0); MEAN CORPUSCULAR HEMOGLOBIN 29.6 pg (27.0-31.0); MEAN CORPUSCULAR HGB CONC 33.9 g/dL (33.0-37.0); RBC 3.51 Mil/uL (4.40-5.90); RED CELL DISTRIBUTION WIDTH 13.6 % (11.5-14.5); WHITE BLOOD COUNT 12.8 K/uL (4.8-10.8)
[2017-11-11 06:37] LABS: ALBUMIN 2.6 g/dL (3.5-5.0); ALT/SGPT 25 U/L (21-72); AST/SGOT 21 U/L (17-59); BLOOD UREA NITROGEN 7 mg/dl (9-20); GFR NON-AFRICAN AMERICAN > 60
--- NOTE | 2017-11-11 08:38 | CP.PCM.PN ---
Subjective - Date & Time of Evaluation Date of Evaluation: 11/11/17 Time of Evaluation: 08:36 - Subjective Subjective: pt doing well sitting up in chair. less pain, n/v/d. bw noted, k wnl. all consults, contacts noted Objective - Vital Signs/Intake and Output Vital Signs (last 24 hours): Temp Pulse Resp BP Pulse Ox 98.7 F 71 20 150/87 95 11/11/17 08:30 11/11/17 08:30 11/11/17 08:30 11/11/17 08:30 11/11/17 08:30 Intake and Output: 11/11/17 11/11/17 06:59 18:59 Output Total 1270 Balance -1270 - Medications Medications: Current Medications Acetaminophen (Tylenol 325mg Tab) 650 mg PO Q6 PRN PRN Reason: Fever >100.4 F Enoxaparin Sodium (Lovenox) 40 mg SC DAILY [facility] PRN Reason: Protocol Last Admin: 11/10/17 09:19 Dose: 40 mg Hydromorphone HCl (Dilaudid) 0.5 mg IVP Q4H PRN PRN Reason: Pain, moderate (4-7) Last Admin: 11/11/17 03:41 Dose: 0.5 mg Metronidazole (Flagyl 500mg/100ml Ns) 100 mls @ 100 mls/hr IVPB Q8H [facility] PRN Reason: Protocol Last Admin: 11/11/17 05:16 Dose: 100 mls/hr Vancomycin HCl 1 gm/ Sodium (Chloride) 250 mls @ 166.667 mls/hr IVPB Q12@1000, 2200 [facility] PRN Reason: Protocol Last Admin: 11/10/17 22:09 Dose: 166.667 mls/hr Meropenem 1 gm/ Sodium (Chloride) 100 mls @ 100 mls/hr IVPB Q8 [facility] PRN Reason: Protocol Last Admin: 11/11/17 00:43 Dose: 100 mls/hr Ondansetron HCl (Zofran Inj) 4 mg IVP Q4 PRN PRN Reason: Nausea/Vomiting Last Admin: 11/09/17 10:00 Dose: 4 mg Pantoprazole Sodium (Protonix Inj) 40 mg IVP DAILY [facility] Last Admin: 11/10/17 09:20 Dose: 40 mg Potassium Chloride (K-Dur 20 Meq Er Tab) 20 meq PO DAILY [facility] Simethicone (Mylicon Chew Tab) 80 mg PO TID PRN PRN Reason: Flatulence Last Admin: 11/09/17 20:35 Dose: 80 mg Zolpidem Tartrate (Ambien) 5 mg PO HS PRN PRN Reason: Insomnia Last Admin: 11/07/17 22:38 Dose: 5 mg - Labs Labs: 11/11/17 05:30 11/11/17 05:30 PT 17.2 Seconds (9.8-13.1) H 11/06/17 06:00 INR 1.5 11/06/17 06:00 APTT 32.7 Seconds (25.6-37.1) 11/06/17 06:00 - Constitutional Appears: Well, Non-toxic, No Acute Distress - Head Exam Head Exam: ATRAUMATIC, NORMAL INSPECTION, NORMOCEPHALIC - Eye Exam Eye Exam: EOMI, Normal appearance, PERRL Pupil Exam: NORMAL ACCOMODATION, PERRL - ENT Exam ENT Exam: Mucous Membranes Moist, Normal Exam - Neck Exam Neck Exam: Full ROM, Normal Inspection. absent: Lymphadenopathy - Respiratory Exam Respiratory Exam: Clear to Ausculation Bilateral, NORMAL BREATHING PATTERN - Cardiovascular Exam Cardiovascular Exam: REGULAR RHYTHM, RRR, +S1, +S2. absent: Murmur - GI/Abdominal Exam GI & Abdominal Exam: Soft, Normal Bowel Sounds. absent: Tenderness Additional comments: less distended, tenderness - Extremities Exam Extremities Exam: Full ROM, Normal Capillary Refill, Normal Inspection. absent : Joint Swelling, Pedal Edema - Back Exam Back Exam: NORMAL INSPECTION - Neurological Exam Neurological Exam: Alert, Awake, CN II-XII Intact, Normal Gait, Oriented x3 - Psychiatric Exam Psychiatric exam: Normal Affect, Normal Mood - Skin Skin Exam: Dry, Intact, Normal Color, Warm Assessment and Plan (1) Diverticulitis of colon with perforation Assessment & Plan: pt/ot pain med, cont iv anbx id and surgery consult ivf w/ kcl Status: Acute (2) DVT prophylaxis Assessment & Plan: scd and ae hose lovenox Status: Acute (3) Infection due to ESBL-producing Escherichia coli Assessment & Plan: merrem, flagyl, vanco picc-cleared by ID cont ID and surgery consult contact precautions Status: Acute (4) Hypokalemia Assessment & Plan: cont ivf cont ot monitor k Status: Acute
[2017-11-11] MEDS: Potassium Chloride 20 mEq ER Tab PO SCH (08:41)
[2017-11-11] MEDS: Enoxaparin 40 mg Syringe SC SCH (08:42)
--- NOTE | 2017-11-11 09:18 | CP.PCM.PN ---
Subjective - Date & Time of Evaluation Date of Evaluation: 11/11/17 Time of Evaluation: 07:00 - Subjective Subjective: Surgery: Dr. Slaughter Pt seen and examined. No acute overnight events. States he feels well this morning and is tolerating liquids. He admits to ambulating without difficulty and denies any nausea/vomiting, fevers or chills. Objective - Vital Signs/Intake and Output Vital Signs (last 24 hours): Temp Pulse Resp BP Pulse Ox 98.7 F 71 20 150/87 95 11/11/17 08:30 11/11/17 08:30 11/11/17 08:30 11/11/17 08:30 11/11/17 08:30 Intake and Output: 11/11/17 11/11/17 06:59 18:59 Output Total 1270 Balance -1270 - Medications Medications: Current Medications Acetaminophen (Tylenol 325mg Tab) 650 mg PO Q6 PRN PRN Reason: Fever >100.4 F Enoxaparin Sodium (Lovenox) 40 mg SC DAILY [facility] PRN Reason: Protocol Last Admin: 11/11/17 08:42 Dose: 40 mg Hydromorphone HCl (Dilaudid) 0.5 mg IVP Q4H PRN PRN Reason: Pain, moderate (4-7) Last Admin: 11/11/17 09:02 Dose: 0.5 mg Metronidazole (Flagyl 500mg/100ml Ns) 100 mls @ 100 mls/hr IVPB Q8H [facility] PRN Reason: Protocol Last Admin: 11/11/17 05:16 Dose: 100 mls/hr Vancomycin HCl 1 gm/ Sodium (Chloride) 250 mls @ 166.667 mls/hr IVPB Q12@1000, 2200 [facility] PRN Reason: Protocol Last Admin: 11/10/17 22:09 Dose: 166.667 mls/hr Meropenem 1 gm/ Sodium (Chloride) 100 mls @ 100 mls/hr IVPB Q8 [facility] PRN Reason: Protocol Last Admin: 11/11/17 08:42 Dose: 100 mls/hr Ondansetron HCl (Zofran Inj) 4 mg IVP Q4 PRN PRN Reason: Nausea/Vomiting Last Admin: 11/09/17 10:00 Dose: 4 mg Pantoprazole Sodium (Protonix Inj) 40 mg IVP DAILY [facility] Last Admin: 11/11/17 08:42 Dose: 40 mg Potassium Chloride (K-Dur 20 Meq Er Tab) 20 meq PO DAILY [facility] Last Admin: 11/11/17 08:41 Dose: 20 meq Simethicone (Mylicon Chew Tab) 80 mg PO TID PRN PRN Reason: Flatulence Last Admin: 11/09/17 20:35 Dose: 80 mg Zolpidem Tartrate (Ambien) 5 mg PO HS PRN PRN Reason: Insomnia Last Admin: 11/07/17 22:38 Dose: 5 mg - Labs Labs: 11/11/17 05:30 11/11/17 05:30 PT 17.2 Seconds (9.8-13.1) H 11/06/17 06:00 INR 1.5 11/06/17 06:00 APTT 32.7 Seconds (25.6-37.1) 11/06/17 06:00 - Constitutional Appears: Well, No Acute Distress - Head Exam Head Exam: ATRAUMATIC, NORMOCEPHALIC - Eye Exam Eye Exam: Normal appearance - ENT Exam ENT Exam: Mucous Membranes Moist - Respiratory Exam Respiratory Exam: NORMAL BREATHING PATTERN - Cardiovascular Exam Cardiovascular Exam: RRR - GI/Abdominal Exam GI & Abdominal Exam: Soft, Tenderness (around midline incision, steffany in place with some erythema around the inferior border). absent: Distended, Guarding, Rebound Additional comments: Ostomy in place with air & soft liquid stool in bag - Extremities Exam Extremities Exam: absent: Calf Tenderness - Neurological Exam Neurological Exam: Alert, Awake, Oriented x3 - Skin Skin Exam: Dry, Warm Assessment and Plan - Assessment and Plan (Free Text) Assessment: 62M s/p [place]'s for perforated diverticulitis; POD# 5 Plan: - advance to low residual diet - cont IV ABX per ID recs; pt for PICC today - cont ambulation & incentive spirometry - d/w Dr. Kasandra Watson
[2017-11-11] MEDS ORDERED: Lidocaine 1% 5ml Abboject IV ONE (12:41)
--- NOTE | 2017-11-11 13:56 | PCM.SURG1 ---
Surgeon's Initial Post Op Note - Surgeon's Notes Surgeon: Dakota Nash MD Crutching Contractor: NONE Type of Anesthesia: Local Pre-Operative Diagnosis: Infection Operative Findings: US showed patent basilic vein Post-Operative Diagnosis: Infection Operation Performed: Single lumen picc right basilic vein, 33 cm. Tip is in the SVC. Specimen/Specimens Removed: NONE Estimated Blood Loss: EBL {In ML}: 2 Blood Products Given: N/A Drains Used: No Drains Post-Op Condition: Fair Date of Surgery/Procedure: 11/11/17 Time of Surgery/Procedure: 13:50
--- NOTE | 2017-11-11 14:37 | VASCULAR ---
PROCEDURE: Date of procedure: 11/11/2017 Procedure: 1. Placement of a right arm PICC with ultrasound and fluoroscopic guidance, CPT 88170 2. PICC tip confirmation with spot radiograph and is in the superior vena cava Medications: 1 percent lidocaine Total Fluoro time: 4.4 seconds Radiation: 0.60 MGy EBL: 2 cc HISTORY: Infection requiring long-term IV antibiotics TECHNIQUE: Following informed consent and procedure time-out, the patient was placed supine on the interventional table and the right arm prepped and draped in the usual sterile fashion. Ultrasound showed a patent and compressible right basilic vein. After the skin was anesthetized with lidocaine, the basilic vein was accessed with micro micropuncture technique using ultrasound guidance. A guidewire was then advanced under fluoroscopic guidance into the superior vena cava. An image documenting ultrasound guidance for vascular access was permanently saved. The length of the single-lumen 4 Tongan PICC was trimmed to 33 centimeters and advanced through a peel-away sheath. The PICC was position with tip of PICC confirm a spot radiograph the superior vena cava. The PICC was secured to the patient's skin. The PICC was flushed. A biopatch and sterile dressing was applied. IMPRESSION: Placement of a single-lumen 4 Tongan PICC trimmed to 33 centimeters via right basilic vein. The tip of the PICC is confirmed with spot radiograph and is in the superior vena cava.
[2017-11-12] MEDS: Meropenem 1 GM in Sodium Chloride 0.9% 100 ML IVPB SCH ×2 (00:23→09:06)
[2017-11-12] MEDS: metroNIDAZOLE 500mg/100ml NS 100 ML IVPB SCH ×2 (05:07→12:13)
[2017-11-12 06:35] LABS: HEMOGLOBIN 10.2 g/dL (12.0-18.0); MEAN CELL VOLUME 87.2 fl (80.0-94.0); MEAN CORPUSCULAR HEMOGLOBIN 30.8 pg (27.0-31.0); MEAN CORPUSCULAR HGB CONC 35.3 g/dL (33.0-37.0); RBC 3.31 Mil/uL (4.40-5.90); RED CELL DISTRIBUTION WIDTH 13.5 % (11.5-14.5); WHITE BLOOD COUNT 10.9 K/uL (4.8-10.8)
[2017-11-12 07:33] LABS: BLOOD UREA NITROGEN 7 mg/dl (9-20); CALCIUM 7.7 mg/dL (8.4-10.2); GFR NON-AFRICAN AMERICAN > 60
[2017-11-12 08:23] VITALS: BP 139/82; PULSE 79; RESP 20; TEMP 98.8; O2SAT 95
--- NOTE | 2017-11-12 08:45 | CP.PCM.PN ---
Subjective - Date & Time of Evaluation Date of Evaluation: 11/12/17 Time of Evaluation: 08:43 - Subjective Subjective: pt doing well. no complaints. no f/c, n/v/d. bw noted. consults appriciated. pt notes appriciated pt would benefit from skill nursing care of new ostomy and iv anbx Objective - Vital Signs/Intake and Output Vital Signs (last 24 hours): Temp Pulse Resp BP Pulse Ox 98.8 F 79 20 139/82 95 11/12/17 08:22 11/12/17 08:22 11/12/17 08:22 11/12/17 08:22 11/12/17 08:22 Intake and Output: 11/12/17 11/12/17 06:59 18:59 Output Total 300 Balance -300 - Medications Medications: Current Medications Acetaminophen (Tylenol 325mg Tab) 650 mg PO Q6 PRN PRN Reason: Fever >100.4 F Enoxaparin Sodium (Lovenox) 40 mg SC DAILY ANTIONE PRN Reason: Protocol Last Admin: 11/11/17 08:42 Dose: 40 mg Hydromorphone HCl (Dilaudid) 0.5 mg IVP Q4H PRN PRN Reason: Pain, moderate (4-7) Last Admin: 11/12/17 02:31 Dose: 0.5 mg Metronidazole (Flagyl 500mg/100ml Ns) 100 mls @ 100 mls/hr IVPB Q8H ANTIONE PRN Reason: Protocol Last Admin: 11/12/17 05:07 Dose: 100 mls/hr Vancomycin HCl 1 gm/ Sodium (Chloride) 250 mls @ 166.667 mls/hr IVPB Q12@1000, 2200 ANTIONE PRN Reason: Protocol Last Admin: 11/11/17 22:36 Dose: 166.667 mls/hr Meropenem 1 gm/ Sodium (Chloride) 100 mls @ 100 mls/hr IVPB Q8 ANTIONE PRN Reason: Protocol Last Admin: 11/12/17 00:23 Dose: 100 mls/hr Ondansetron HCl (Zofran Inj) 4 mg IVP Q4 PRN PRN Reason: Nausea/Vomiting Last Admin: 11/11/17 19:52 Dose: 4 mg Pantoprazole Sodium (Protonix Inj) 40 mg IVP DAILY [facility] Last Admin: 11/11/17 08:42 Dose: 40 mg Potassium Chloride (K-Dur 20 Meq Er Tab) 20 meq PO DAILY ANTIONE Last Admin: 11/11/17 08:41 Dose: 20 meq Simethicone (Mylicon Chew Tab) 80 mg PO TID PRN PRN Reason: Flatulence Last Admin: 11/09/17 20:35 Dose: 80 mg Zolpidem Tartrate (Ambien) 5 mg PO HS PRN PRN Reason: Insomnia Last Admin: 11/07/17 22:38 Dose: 5 mg - Labs Labs: 11/12/17 05:55 11/12/17 05:55 PT 17.2 Seconds (9.8-13.1) H 11/06/17 06:00 INR 1.5 11/06/17 06:00 APTT 32.7 Seconds (25.6-37.1) 11/06/17 06:00 - Constitutional Appears: Well, Non-toxic, No Acute Distress - Head Exam Head Exam: ATRAUMATIC, NORMAL INSPECTION, NORMOCEPHALIC - Eye Exam Eye Exam: EOMI, Normal appearance, PERRL Pupil Exam: NORMAL ACCOMODATION, PERRL - ENT Exam ENT Exam: Mucous Membranes Moist, Normal Exam - Neck Exam Neck Exam: Full ROM, Normal Inspection. absent: Lymphadenopathy - Respiratory Exam Respiratory Exam: Clear to Ausculation Bilateral, NORMAL BREATHING PATTERN - Cardiovascular Exam Cardiovascular Exam: REGULAR RHYTHM, RRR, +S1, +S2. absent: Murmur - GI/Abdominal Exam GI & Abdominal Exam: Distended, Soft, Normal Bowel Sounds. absent: Tenderness - Extremities Exam Extremities Exam: Full ROM, Normal Capillary Refill, Normal Inspection. absent : Joint Swelling, Pedal Edema - Back Exam Back Exam: NORMAL INSPECTION - Neurological Exam Neurological Exam: Alert, Awake, CN II-XII Intact, Normal Gait, Oriented x3 - Psychiatric Exam Psychiatric exam: Normal Affect, Normal Mood - Skin Skin Exam: Dry, Intact, Normal Color, Warm Assessment and Plan (1) Diverticulitis of colon with perforation Status: Acute (2) DVT prophylaxis Status: Acute (3) Infection due to ESBL-producing Escherichia coli Status: Acute (4) Hypokalemia Status: Acute - Assessment and Plan (Free Text) Assessment: (1) Diverticulitis of colon with perforation Assessment & Plan: pt/ot pain med, cont iv anbx id and surgery consult ivf w/ kcl Status: Acute (2) DVT prophylaxis Assessment & Plan: scd and ae hose lovenox Status: Acute (3) Infection due to ESBL-producing Escherichia coli Assessment & Plan: merrem, flagyl, vanco picc-cleared by ID cont ID and surgery consult contact precautions Status: Acute (4) Hypokalemia Assessment & Plan: cont ivf cont ot monitor k Status: Acute tcu vs home care
[2017-11-12] MEDS: Enoxaparin 40 mg Syringe SC SCH (09:05)
[2017-11-12] MEDS: Potassium Chloride 20 mEq ER Tab PO SCH (09:05)
--- NOTE | 2017-11-12 09:56 | CP.PCM.PCO ---
Physician Communication Note - Physician Communication Note Physician Communication Note: Per pt may go to TCU to continue IV abx for at least 7-10 days
[2017-11-12] MEDS ORDERED: Oxycodone/Acetaminophen 5/325 mg Tab PO PRN ×2 (10:09→10:11)
[2017-11-12] MEDS ORDERED: Potassium Chloride 20 mEq ER Tab PO ONE (11:00)
--- NOTE | 2017-11-12 12:08 | CP.PCM.PN ---
Subjective - Date & Time of Evaluation Date of Evaluation: 11/12/17 Time of Evaluation: 11:40 - Subjective Subjective: Patient was seen and examined at the bedside. No nausea or vomiting, tolerating low residue diet. Objective - Vital Signs/Intake and Output Vital Signs (last 24 hours): Temp Pulse Resp BP Pulse Ox 98.8 F 79 20 139/82 95 11/12/17 08:22 11/12/17 08:22 11/12/17 08:22 11/12/17 08:22 11/12/17 08:22 Intake and Output: 11/12/17 11/12/17 06:59 18:59 Output Total 300 Balance -300 - Medications Medications: Current Medications Acetaminophen (Tylenol 325mg Tab) 650 mg PO Q6 PRN PRN Reason: Fever >100.4 F Enoxaparin Sodium (Lovenox) 40 mg SC DAILY ANTIONE PRN Reason: Protocol Last Admin: 11/12/17 09:05 Dose: 40 mg Metronidazole (Flagyl 500mg/100ml Ns) 100 mls @ 100 mls/hr IVPB Q8H ANTIONE PRN Reason: Protocol Last Admin: 11/12/17 05:07 Dose: 100 mls/hr Vancomycin HCl 1 gm/ Sodium (Chloride) 250 mls @ 166.667 mls/hr IVPB Q12@1000, 2200 ANTIONE PRN Reason: Protocol Last Admin: 11/12/17 09:07 Dose: 166.667 mls/hr Meropenem 1 gm/ Sodium (Chloride) 100 mls @ 100 mls/hr IVPB Q8 ANTIONE PRN Reason: Protocol Last Admin: 11/12/17 09:06 Dose: 100 mls/hr Ondansetron HCl (Zofran Inj) 4 mg IVP Q4 PRN PRN Reason: Nausea/Vomiting Last Admin: 11/11/17 19:52 Dose: 4 mg Oxycodone/Acetaminophen (Percocet 5/325 Mg Tab) 1 tab PO Q4 PRN PRN Reason: Pain, moderate (4-7) Stop: 11/15/17 10:10 Oxycodone/Acetaminophen (Percocet 5/325 Mg Tab) 2 tab PO Q4 PRN PRN Reason: Pain, severe (8-10) Stop: 11/15/17 10:12 Last Admin: 11/12/17 10:36 Dose: 2 tab Pantoprazole Sodium (Protonix Inj) 40 mg IVP DAILY ANTIONE Last Admin: 11/12/17 09:06 Dose: 40 mg Potassium Chloride (K-Dur 20 Meq Er Tab) 20 meq PO DAILY ANTIONE Last Admin: 11/12/17 09:05 Dose: 20 meq Simethicone (Mylicon Chew Tab) 80 mg PO TID PRN PRN Reason: Flatulence Last Admin: 11/09/17 20:35 Dose: 80 mg Zolpidem Tartrate (Ambien) 5 mg PO HS PRN PRN Reason: Insomnia Last Admin: 11/07/17 22:38 Dose: 5 mg - Labs Labs: 11/12/17 05:55 11/12/17 05:55 PT 17.2 Seconds (9.8-13.1) H 11/06/17 06:00 INR 1.5 11/06/17 06:00 APTT 32.7 Seconds (25.6-37.1) 11/06/17 06:00 - Constitutional Appears: Well, Non-toxic, No Acute Distress - Head Exam Head Exam: ATRAUMATIC, NORMAL INSPECTION, NORMOCEPHALIC - Eye Exam Eye Exam: EOMI, Normal appearance, PERRL Pupil Exam: NORMAL ACCOMODATION, PERRL - ENT Exam ENT Exam: Mucous Membranes Moist, Normal Exam - Neck Exam Neck Exam: Full ROM, Normal Inspection - Respiratory Exam Respiratory Exam: Clear to Ausculation Bilateral, NORMAL BREATHING PATTERN - Cardiovascular Exam Cardiovascular Exam: REGULAR RHYTHM, +S1, +S2 - GI/Abdominal Exam GI & Abdominal Exam: Soft, Normal Bowel Sounds Additional comments: very mild sameer-incisional tenderness, ND, no rebound, no guarding, incision clean, improving erythema, no drainage, LLQ colostomy in place with stool and gas - Rectal Exam Rectal Exam: Deferred - Extremities Exam Extremities Exam: Full ROM, Normal Inspection - Back Exam Back Exam: NORMAL INSPECTION - Neurological Exam Neurological Exam: Alert, Awake, Oriented x3 - Psychiatric Exam Psychiatric exam: Normal Affect, Normal Mood - Skin Skin Exam: Dry, Intact, Normal Color, Warm Assessment and Plan - Assessment and Plan (Free Text) Assessment: 62 y.o. male s/p Harmann's procedure for perforated diverticulitis Plan: - Continue diet - Pain control - Continue antibiotics as per ID - Physical therapy - Patient is clear for transfer to TCU from the general surgery stand point
--- NOTE | 2017-11-13 08:55 | CP.PCM.DIS ---
Provider - Provider Date of Admission: 10/31/17 08:12 Attending physician: Lyla Tubbs MD Consults: 11/07/17 04:15 Nursing Referral for Wound Care Routine Comment: Physician Instructions: Reason For Exam: s/p explor lap Time Spent in preparation of Discharge (in minutes): 30 Diagnosis - Discharge Diagnosis (1) Diverticulitis of colon with perforation Status: Acute (2) DVT prophylaxis Status: Acute (3) Infection due to ESBL-producing Escherichia coli Status: Acute (4) Hypokalemia Status: Acute Hospital Course - Lab Results Lab Results: Micro Results 11/06/17 18:00 Abscess - Abdominal Cavity Gram Stain - Final 11/06/17 18:00 Abscess - Abdominal Cavity Wound Culture - Final Escherichia Coli 11/04/17 10:28 Blood-Venous Blood Culture - Final NO GROWTH AFTER 5 DAYS 11/04/17 10:28 Blood-Venous Gram Stain - Final TEST NOT PERFORMED 10/29/17 21:15 Blood-Venous S.aureus & Coag-Neg Staph PNA FISH - Final 10/29/17 21:15 Blood-Venous Blood Culture - Final Peptostreptococcus Micros 10/29/17 21:15 Blood-Venous Gram Stain - Final 10/29/17 21:20 Blood-Venous Blood Culture - Final NO GROWTH AFTER 5 DAYS 10/29/17 21:20 Blood-Venous Gram Stain - Final TEST NOT PERFORMED Most Recent Lab Values WBC 10.9 K/uL (4.8-10.8) H 11/12/17 05:55 RBC 3.31 Mil/uL (4.40-5.90) L 11/12/17 05:55 Hgb 10.2 g/dL (12.0-18.0) L 11/12/17 05:55 Hct 28.9 % (35.0-51.0) L 11/12/17 05:55 MCV 87.2 fl (80.0-94.0) 11/12/17 05:55 MCH 30.8 pg (27.0-31.0) 11/12/17 05:55 MCHC 35.3 g/dL (33.0-37.0) 11/12/17 05:55 RDW 13.5 % (11.5-14.5) 11/12/17 05:55 Plt Count 491 K/uL (130-400) H 11/12/17 05:55 MPV 6.5 fl (7.2-11.7) L 11/10/17 09:44 Neut % (Auto) 87.8 % (50.0-75.0) H 11/10/17 09:44 Lymph % (Auto) 5.0 % (20.0-40.0) L 11/10/17 09:44 Real % (Auto) 6.2 % (0.0-10.0) 11/10/17 09:44 Eos % (Auto) 0.7 % (0.0-4.0) 11/10/17 09:44 Baso % (Auto) 0.3 % (0.0-2.0) 11/10/17 09:44 Neut # (Auto) 10.6 K/uL (1.8-7.0) H 11/10/17 09:44 Lymph # (Auto) 0.6 K/uL (1.0-4.3) 11/10/17 09:44 Real # (Auto) 0.8 K/uL (0.0-0.8) 11/10/17 09:44 Eos # (Auto) 0.1 K/uL (0.0-0.7) 11/10/17 09:44 Baso # (Auto) 0.0 K/uL (0.0-0.2) 11/10/17 09:44 Neutrophils % (Manual) 96 % (42-75) H 11/08/17 05:30 Band Neutrophils % 3 % (0-2) H 11/03/17 08:30 Lymphocytes % (Manual) 1 % (20-50) L 11/08/17 05:30 Reactive Lymphs % 1 % (0-0) H 11/03/17 08:30 Monocytes % (Manual) 3 % (0-10) 11/08/17 05:30 Eosinophils % (Manual) 1 % (0-7) 11/03/17 08:30 Metamyelocytes % 1 % (0-0) H 11/03/17 08:30 Platelet Estimate Normal (NORMAL) 11/08/17 05:30 Giant Platelets Present 10/29/17 21:00 Hypochromasia (manual) Slight 11/03/17 08:30 Poikilocytosis (manual Slight 11/08/17 05:30 Anisocytosis (manual) Slight 11/08/17 05:30 Ovalocytes Slight 11/08/17 05:30 Rouleaux Slight 10/29/17 21:00 PT 17.2 Seconds (9.8-13.1) H 11/06/17 06:00 INR 1.5 11/06/17 06:00 APTT 32.7 Seconds (25.6-37.1) 11/06/17 06:00 Sodium 136 mmol/l (132-148) 11/12/17 05:55 Potassium 3.1 MMOL/L (3.6-5.0) L 11/12/17 05:55 Chloride 100 mmol/L (98-107) 11/12/17 05:55 Carbon Dioxide 29 mmol/L (22-30) 11/12/17 05:55 Anion Gap 10 (10-20) 11/12/17 05:55 BUN 7 mg/dl (9-20) L 11/12/17 05:55 Creatinine 0.6 mg/dl (0.8-1.5) L 11/12/17 05:55 Est GFR ( Amer) > 60 11/12/17 05:55 Est GFR (Non-Af Amer) > 60 11/12/17 05:55 POC Glucose (mg/dL) 240 mg/dL (65-110) H 10/30/17 01:11 Random Glucose 83 mg/dL (75-110) 11/12/17 05:55 Lactic Acid 0.5 MMOL/L (0.7-2.1) L 11/04/17 15:34 Calcium 7.7 mg/dL (8.4-10.2) L 11/12/17 05:55 Phosphorus 3.0 mg/dl (2.5-4.5) 11/12/17 10:42 Magnesium 2.1 MG/DL (1.6-2.3) 11/12/17 10:42 Total Bilirubin 0.4 mg/dl (0.2-1.3) 11/11/17 05:30 AST 21 U/L (17-59) 11/11/17 05:30 ALT 25 U/L (21-72) 11/11/17 05:30 Alkaline Phosphatase 60 U/L (38-126) 11/11/17 05:30 Total Protein 5.4 G/DL (6.3-8.2) L 11/11/17 05:30 Albumin 2.6 g/dL (3.5-5.0) L 11/11/17 05:30 Globulin 2.7 gm/dL (2.2-3.9) 11/11/17 05:30 Albumin/Globulin Ratio 1.0 (1.0-2.1) 11/11/17 05:30 Lipase < 10 U/L (23-300) L 10/29/17 21:00 Vancomycin Trough 5.3 ug/mL (5.0-10.0) 11/04/17 20:04 Blood Type O POSITIVE 11/06/17 06:00 Antibody Screen Negative 11/06/17 06:00 BBK History Checked Patient has bt 11/06/17 06:00 - Hospital Course Hospital Course: surgery, id iv anbx c/s noted ostomy placement Discharge Exam - Head Exam Head Exam: ATRAUMATIC, NORMAL INSPECTION, NORMOCEPHALIC Discharge Plan - Discharge Medications Prescriptions: Meropenem IV 1 gm in NS [Merrem IV 1 gm Premix] 1 gm IVPB Q8 #27 bag metroNIDAZOLE 500mg/100ml NS [Flagyl 500MG/100ML NS] 500 mg IVPB Q8 #27 bag Vancomycin/0.9 % Sod Chloride [Vanco 1 Gram/150 ml-0.9% NaCl] 1 gm IV Q12 #18 plast..bag - Follow Up Plan Condition: FAIR Disposition: REHAB FACILITY/REHAB UNIT Instructions: Diverticulitis (DC) Additional Instructions: f/u pt on tcu, rted prn, meds per med rec final dx-diverticulitis w/ perf, esbl e coli in wound Referrals: Lyla Tubbs MD [Staff Provider] - Jay Slaughter MD [Staff Provider] - Jacques Hanson, DNP, VARNISHING MACHINE OPERATOR [Advanced Practice Nurse] -
== END 2017-11-12 15:00 | DRG 330 ==
LOC: H.ER 20:22 → H.ERHOLD 23:38 → H.MEDSURG1 10-30 03:46 → OBSVTOIN 10-31 08:12
PROVIDERS: ADMIT Family Medicine; ATTEND Family Medicine
PROC: 3E0T3BZ Introduction of Anesthetic Agent into Peripheral Nerves and Plexi, Percutaneous Approach (ICD-10-PCS; 2017-11-06)
PROC: 3E0T33Z Introduction of Anti-inflammatory into Peripheral Nerves and Plexi, Percutaneous Approach (ICD-10-PCS; 2017-11-06)
PROC: 0D1M0Z4 Bypass Descending Colon to Cutaneous, Open Approach (ICD-10-PCS; principal; 2017-11-06 12:30)
PROC: 0DTN0ZZ Resection of Sigmoid Colon, Open Approach (ICD-10-PCS; 2017-11-06 12:30)
PROC: 02HV33Z Insertion of Infusion Device into Superior Vena Cava, Percutaneous Approach (ICD-10-PCS; 2017-11-11)
PROC: B548ZZA Ultrasonography of Superior Vena Cava, Guidance (ICD-10-PCS; 2017-11-11)
PROC: 3E04329 Introduction of Other Anti-infective into Central Vein, Percutaneous Approach (ICD-10-PCS; 2017-11-11)
DX: K57.20 Diverticulitis of large intestine with perforation and abscess without bleeding (principal); E87.6 Hypokalemia; B96.29 Other Escherichia coli [E. coli] as the cause of diseases classified elsewhere; B95.2 Enterococcus as the cause of diseases classified elsewhere; Z16.12 Extended spectrum beta lactamase (ESBL) resistance; I10 Essential (primary) hypertension; G47.00 Insomnia, unspecified; R91.1 Solitary pulmonary nodule; Z87.11 Personal history of peptic ulcer disease; Z79.82 Long term (current) use of aspirin

== ENCOUNTER 2018-03-18 05:44 | Inpatient (IN) | payer BC ==
[2018-02-17 11:51] VITALS: BMI 28.8
[2018-03-18 07:04] LABS: BASO % 0.5 % (0.0-2.0); EOS # 0.2 K/uL (0.0-0.7); EOS % 2.4 % (0.0-4.0); HEMOGLOBIN 15.7 g/dL (12.0-18.0); LYMPH # 1.1 K/uL (1.0-4.3); LYMPH % 15.1 % (20.0-40.0); MEAN CELL VOLUME 88.9 fl (80.0-94.0); MEAN CORPUSCULAR HGB CONC 34.8 g/dL (33.0-37.0); MONO # 0.6 K/uL (0.0-0.8); MONO % 8.2 % (0.0-10.0); NEUT # 5.2 K/uL (1.8-7.0); NEUT % 73.8 % (50.0-75.0); NRBC % 0.3 % (0.0-0.0); RBC 5.08 Mil/uL (4.40-5.90)
[2018-03-18] MEDS ORDERED: Lactated Ringer's 1,000 ML IV ONE ×5 (07:06→10:17)
[2018-03-18] MEDS ORDERED: Propofol 10 mg/ml Inj (20 ML) ONE (07:22)
[2018-03-18] MEDS ORDERED: Lidocaine 4% (Laryng-O-Jet) Kit MM ONE (07:22)
[2018-03-18] MEDS ORDERED: Rocuronium 10 mg/ml (5 ml) ONE ×2 (07:22→08:53)
[2018-03-18] MEDS ORDERED: Succinylcholine Chloride 20 mg/ml Syr (5 ml) IV ONE (07:22)
[2018-03-18] MEDS ORDERED: Phenylephrine 10 mg/ml Inj ONE (07:23)
[2018-03-18] MEDS ORDERED: metroNIDAZOLE 500mg/100ml NS 100 ML IVPB ONE (07:35)
[2018-03-18] MEDS ORDERED: Midazolam 2 MG/2 ML VIAL ONE (08:07)
[2018-03-18] MEDS ORDERED: metroNIDAZOLE 500mg/100ml NS IVPB ONE (08:15)
[2018-03-18] MEDS ORDERED: ceFAZolin IV 1 gm in Dextrose 1 GM/50 ML BAG IVPB ONE (08:22)
[2018-03-18] MEDS ORDERED: Dexamethasone 4 mg/1 ml ONE (08:37)
[2018-03-18] MEDS ORDERED: Bupivacaine HCl/Epi 0.5% 1:20000 30 ML SOL IJ ONE (08:45)
[2018-03-18] MEDS ORDERED: Neostigmine 1:1000 (1 mg/ml) Inj ONE (09:46)
--- NOTE | 2018-03-18 10:31 | PCM.SURG1 ---
Surgeon's Initial Post Op Note - Surgeon's Notes Surgeon: Jay Slaughter Cracker Dough Mixer: Uche Rueda and Samra Rosales Type of Anesthesia: General Endo Anesthesia Administered By: Brenton Vuong Pre-Operative Diagnosis: Dolly's Colostomy Operative Findings: Extensive adhesions and mesh Post-Operative Diagnosis: Reversal of Dolly's Operation Performed: Reversal of Dolly's Colostomy, extensive lysis of adhesions Specimen/Specimens Removed: colostomy Estimated Blood Loss: EBL {In ML}: 50 Blood Products Given: N/A Drains Used: No Drains Post-Op Condition: Good Date of Surgery/Procedure: 03/18/18 Time of Surgery/Procedure: 10:00
--- NOTE | 2018-03-18 10:58 | PCM.ANESB5 ---
Transverse Abdominis Block - Transverse Abdominis Plane Date of Procedure: 03/18/18 Anesthesiologist: Carolann Pre-Procedure Diagnosis: S/P colostomy Post-Procedure Diagnosis: Same Procedure Performed: Transverse Abdominis Plane Nerve Block Left, Transverse Abdominis Plane Nerve Block Right - Procedure Transverse Abdominis Plane Nerve Block: The procedure was explained to the patient that it is for post-operative pain management and would be performed after surgery. Consent was obtained prior to surgery after a thorough discussion with the patient regarding the benefits and possible complications of transverse abdominis plane block. After the surgery had concluded and before the patient emerged from general anesthesia, time-out was held with the circulating nurse to re-confirm the appropriate block. With the patient in supine position, the ultrasound probe was placed transverse to the abdominal wall at the mid-axillary line above the iliac crest of the appropriate side. The skin, subcutaneous tissue, fat, external oblique muscle, internal oblique muscle, and the transverse abdominis muscle were identified. The general area of the block site was then prepped with Betadine three times. At this point, a # 21-gauge Stimuplex 4-inch needle was inserted posterior to and in plane with the ultrasound probe and directed anteriorly. Needle was advanced under direct ultrasound visualization until it reached the plane between the internal oblique and transverse abdominis muscles. After appropriate placement, 2mL of local anesthetic solution was injected. When the transverse abdominis plane was observed expanding in an ellipsoid way, the rest of the solution was slowly injected. A total of __30____ mL of __0.25___ % ___bupivacaine with 1:200,000 epinephrine was used for this block. The needle was then removed and sterile dressing was applied. Similarly, the same procedure was performed on the other side using the same medications. The patient had stable vital signs throughout and had no untoward complications after emergence from general anesthesia in the recovery room.
[2018-03-18] MEDS: HYDROmorphone 0.5 mg/0.5 ml ISec IVP PRN ×5 (11:04→12:16)
[2018-03-18] MEDS ORDERED: HYDROmorphone 0.5 mg/0.5 ml ISec ONE ×2 (11:06→12:19)
[2018-03-18] MEDS ORDERED: HYDROmorphone 0.5 mg/0.5 ml ISec IVP PRN (12:20)
[2018-03-18] MEDS: Lactated Ringer's 1,000 ML IV SCH ×3 (15:00→22:01)
[2018-03-19] MEDS: Lactated Ringer's 1,000 ML IV SCH ×2 (03:00→05:28)
--- NOTE | 2018-03-19 07:42 | CP.PCM.PN ---
Subjective - Date & Time of Evaluation Date of Evaluation: 03/19/18 Time of Evaluation: 06:45 - Subjective Subjective: Patient seen and examined. No acute events over night. >1L UOP/ 12 hrs. Moderate incisional site pain. Denies fever/chills, nausea/vomiting. Not passing flatus. Objective - Vital Signs/Intake and Output Vital Signs (last 24 hours): Temp Pulse Resp BP Pulse Ox 98.2 F 63 18 99/62 L 96 03/19/18 02:00 03/19/18 02:00 03/19/18 02:00 03/19/18 02:00 03/19/18 02:00 Intake and Output: 03/19/18 03/19/18 06:59 18:59 Output Total 1000 Balance -1000 - Medications Medications: Current Medications Aspirin (Ecotrin) 81 mg PO DAILY [facility] Enoxaparin Sodium (Lovenox) 40 mg SC DAILY [facility]; Protocol Gabapentin (Neurontin) 600 mg PO TID [facility] Hydromorphone HCl (Dilaudid) 0.5 mg IVP Q3 PRN PRN Reason: Pain, severe (8-10) Acetaminophen (Ofirmev) 100 mls @ 400 mls/hr IVPB Q6H [facility]; Protocol Stop: 03/19/18 08:01 Last Admin: 03/19/18 02:47 Dose: 400 mls/hr Metoprolol Succinate (Toprol Xl) 50 mg PO DAILY [facility] Ondansetron HCl (Zofran Inj) 4 mg IVP ONCE PRN PRN Reason: Nausea/Vomiting Last Admin: 03/18/18 21:15 Dose: 4 mg Oxycodone/Acetaminophen (Percocet 5/325 Mg Tab) 1 tab PO Q4 PRN PRN Reason: Pain, moderate (4-7) Stop: 03/22/18 07:40 Zolpidem Tartrate (Ambien) 5 mg PO HS PRN PRN Reason: Insomnia - Labs Labs: 03/18/18 07:01 - Constitutional Appears: No Acute Distress - Head Exam Head Exam: NORMOCEPHALIC - Eye Exam Eye Exam: EOMI, Normal appearance - ENT Exam ENT Exam: Mucous Membranes Moist - Respiratory Exam Respiratory Exam: NORMAL BREATHING PATTERN - Cardiovascular Exam Cardiovascular Exam: +S1, +S2 - GI/Abdominal Exam GI & Abdominal Exam: Soft, Tenderness. absent: Distended, Firm, Guarding, Ri gid, Rebound Additional comments: incisional site tenderness - Neurological Exam Neurological Exam: Alert, Awake, Oriented x3 - Psychiatric Exam Psychiatric exam: Normal Mood - Skin Skin Exam: Dry, Normal Color, Warm Assessment and Plan - Assessment and Plan (Free Text) Assessment: 62M s/p Dolly's reversal w/ mesh repair POD1 Plan: Start clear liquid diet IVF D/C cooper D/C MEDICAL LABORATORY SCIENTIST Anti-emetics prn Analgesics prn DVT ppx Encourage IS use Encourage ambulations D/w Dr. Kasandra Gabriel PGY3
--- NOTE | 2018-03-19 07:52 | CP.PCM.HP ---
History of Present Illness - History of Present Illness History of Present Illness: pt admitted s/p reversal middleton procedure doing well at present co abd cramping o fcnvd labs noted Present on Admission - Present on Admission Any Indicators Present on Admission: No Review of Systems - Gastrointestinal Gastrointestinal: As Per HPI, Abdominal Pain Past Patient History - Infectious Disease Hx of Infectious Diseases: ESL (ESBL grew from wound culture) - Past Medical History & Family History Past Medical History?: Yes - Past Social History Smoking Status: Former Smoker - CARDIAC Hx Cardiac Disorders: Yes (HTN) Hx Hypertension: Yes Other/Comment: Heart valve regurg - PULMONARY Hx Respiratory Disorders: No - NEUROLOGICAL Hx Neurological Disorder: No - HEENT Hx HEENT Problems: No Other/Comment: wears glasses - RENAL Hx Chronic Kidney Disease: No - ENDOCRINE/METABOLIC Hx Endocrine Disorders: No - HEMATOLOGICAL/ONCOLOGICAL Hx Blood Disorders: No Hx AIDS: No Hx Human Immunodeficiency Virus (HIV): No - INTEGUMENTARY Hx Dermatological Problems: No - MUSCULOSKELETAL/RHEUMATOLOGICAL Hx Musculoskeletal Disorders: No Hx Falls: No - GASTROINTESTINAL Hx Gastrointestinal Disorders: Yes Hx Bowel Surgery: Yes (sigmoid resection with middleton procedure) Hx Colostomy: Yes (recent admission-nov) Hx Diverticulitis: Yes Hx Gastritis: Yes Hx Ulcer: Yes - GENITOURINARY/GYNECOLOGICAL Hx Genitourinary Disorders: No - PSYCHIATRIC Hx Emotional Abuse: No Hx Physical Abuse: No - SURGICAL HISTORY Hx Surgeries: Yes Hx Herniorrhaphy: Yes (umbilical) Other/Comment: Hand nasal septum surgery. sigmoid resection with middleton procedure-nov - ANESTHESIA Hx Anesthesia: Yes Hx Anesthesia Reactions: No Hx Malignant Hyperthermia: No Has any member of the family had a problem w/ anesthesia?: No Meds Allergies/Adverse Reactions: Allergies Allergy/AdvReac Type Severity Reaction Status Date / Time No Known Allergies Allergy Verified 11/12/17 15:14 Physical Exam - Constitutional Appears: Well, Non-toxic, No Acute Distress - Head Exam Head Exam: ATRAUMATIC, NORMAL INSPECTION, NORMOCEPHALIC - Eye Exam Eye Exam: EOMI, Normal appearance, PERRL Pupil Exam: NORMAL ACCOMODATION, PERRL - ENT Exam ENT Exam: Mucous Membranes Moist, Normal Exam - Neck Exam Neck exam: Positive for: Normal Inspection - Respiratory Exam Respiratory Exam: Clear to Auscultation Bilateral, NORMAL BREATHING PATTERN - Cardiovascular Exam Cardiovascular Exam: REGULAR RHYTHM - GI/Abdominal Exam GI & Abdominal Exam: Normal Bowel Sounds, Soft Additional comments: surgical site cdi - Rectal Exam Rectal Exam: NORMAL INSPECTION - Extremities Exam Extremities exam: Positive for: full ROM, normal capillary refill, normal inspection, pedal pulses present - Back Exam Back exam: NORMAL INSPECTION - Neurological Exam Neurological exam: Alert, CN II-XII Intact, Normal Gait, Oriented x3, Reflexes Normal - Psychiatric Exam Psychiatric exam: Normal Affect, Normal Mood - Skin Skin Exam: Dry, Intact, Normal Color, Warm Results - Vital Signs Recent Vital Signs: Last Vital Signs Temp 98.2 F 03/19/18 02:00 Pulse 63 03/19/18 02:00 Resp 18 03/19/18 02:00 BP 99/62 L 03/19/18 02:00 Pulse Ox 96 03/19/18 02:00 - Labs Result Diagrams: 03/19/18 07:53 03/19/18 07:53 Labs: Laboratory Results - last 24 hr 03/18/18 07:01 Blood Type O POSITIVE Antibody Screen Negative BBK History Checked Patient has bt Assessment & Plan (1) DVT prophylaxis Assessment and Plan: scd and aehose ambulation Status: Acute (2) Diverticulitis of colon with perforation Assessment and Plan: pain control s/p reversal of middleton dsg c/d/i monitor for bm. f/u labs Status: Acute Decision To Admit - Pt Status Changed To: Hospital Disposition Of: Inpatient - Admit Certification Admit to Inpatient:: After my assessment, the patient will require hospitalization for at least two midnights. This is because of the severity of symptoms shown, intensity of services needed, and/or the medical risk in this patient being treated as an outpatient. - . Bed Request Type: Med/Surg Admitting Physician: Jay Slaughter
[2018-03-19 08:01] LABS: BASO % 0.1 % (0.0-2.0); HEMOGLOBIN 12.5 g/dL (12.0-18.0); LYMPH # 0.6 K/uL (1.0-4.3); LYMPH % 5.6 % (20.0-40.0); MEAN CORPUSCULAR HEMOGLOBIN 30.9 pg (27.0-31.0); MEAN CORPUSCULAR HGB CONC 33.9 g/dL (33.0-37.0); MEAN PLATELET VOLUME 7.4 fl (7.2-11.7); MONO # 0.8 K/uL (0.0-0.8); MONO % 6.7 % (0.0-10.0); NEUT # 10.1 K/uL (1.8-7.0); NEUT % 87.6 % (50.0-75.0); NRBC % 0.1 % (0.0-0.0); PLATELET COUNT 236 K/uL (130-400); RBC 4.04 Mil/uL (4.40-5.90); WHITE BLOOD COUNT 11.5 K/uL (4.8-10.8)
--- NOTE | 2018-03-19 08:02 | OP ---
PROCEDURE DATE: 03/18/2018 PREOPERATIVE DIAGNOSIS: Diverticular disease. POSTOPERATIVE DIAGNOSIS: Diverticular disease. PROCEDURE: Reversal of Dolly's procedure, reversal of colostomy and extensive lysis of adhesions. SURGEON: Jay Slaughter MD SUPERVISOR SPINNING: Jacques Rueda DPM. SECOND SUPERVISOR SPINNING: gisele Arellano PA ANESTHESIOLOGIST: Brenton Vuong MD ANESTHESIA: General endotracheal intubation. INTRAVENOUS FLUIDS: Crystalloids. ESTIMATED BLOOD LOSS: 50 mL. INTRAOPERATIVE FINDINGS: Satisfactory colocolonic anastomosis with no tension and intraabdominal adhesions. SPECIMEN: Colostomy. BRIEF HISTORY: Mr. Kan is a very pleasant 62-year-old gentleman who is known to me from his prior admission to [facility] last year when he presented with perforated diverticulitis and was taken to the operative room and underwent Dolly's procedure. Subsequent to that, the patient recovered from his initial surgery and he had colonoscopy about a day prior to the last admission, so there was no need to repeat colonoscopy at this time and the patient was taken to the operative room for above-stated procedure. All the risks and benefits of the procedure were explained to the patient with the patient having a full understanding of all the risks and benefits involved. Informed consent was obtained. DESCRIPTION OF PROCEDURE: The patient was brought into the operating room and placed supine on the operating table. Bilateral Flowtron boots were applied to the patient's lower extremities. After successful induction of anesthesia and successful endotracheal intubation by the anesthesia team, the patient was placed in the lithotomy position and subsequent to that colostomy site was closed with a running locking 2-0 nylon suture. Subsequent to that, Kendall catheter was inserted into the patient's urinary bladder and the patient's abdomen was shaved and prepped with ChloraPrep stick and buttock and perineal area were prepped with Betadine. Subsequent to that, the patient was draped in a standard surgical fashion. Prior to the beginning of procedure, the patient received prophylactic Ancef and Flagyl antibiotics. A time-out was called in the room and everyone in the room was in agreement. Using a 10-blade scalpel knife, approximately 20 cm incision was made going slightly above the umbilicus, coming around the umbilicus on the right side of the patient's abdomen and extending down to the pelvis for the prior scar from his laparotomy. Subsequent to that, dissection was carried down with electrocautery until the fascial layer was encountered. A small joão was made in the fascia and two Agatha clamps were placed on both ends of the fascia. Subsequent to that, fascial layer was opened up a little bit more, and at this point in time, we encountered the peritoneal layer. Peritoneal layer was transected with electrocautery and the patient's abdominal cavity was entered. I immediately was able to visualize extensive intraabdominal adhesion to the anterior abdominal wall that were taken down bluntly with finger dissection as well as sharply with Metzenbaum scissors. I spent approximately 40 minutes during the adhesiolysis. Once the adhesions were all freed up, we got to the pelvis and rectal stump was dissected out with Metzenbaum scissors from surrounding adhesions. At this point in time, attention was turned to the site of the colostomy. Adhesions from the colon were taken down with Metzenbaum scissors, and at this point in time, I made a decision to fire a 75-mm blue load ROLDAN stapler smacked against abdominal wall at the site of the colostomy. Once this was done and the bowel was freed up, the colon was approximated to the rectal stump with interrupted 3-0 silk sutures and a SH needle in a [id number] fashion. Once this was accomplished, two enterotomies were made in the colon. Subsequent to that, two Allis clamps were inserted into the lumen of the bowel. At this point in time, another 75-mm blue load ROLDAN stapler was inserted into both ends of the bowel lumen and the stapler was fired. At this point in time, the defect was closed with interrupted two silk sutures. Once the defect was completely closed off, the packing of the lap pads were removed and appeared to be 0 tension on anastomosis whatsoever. At this point in time, the patient's abdominal cavity was irrigated and fluid was suctioned out. Hemostasis was confirmed. At this point in time, the attention was turned to the site of the colostomy. Using electrocautery, the colostomy was excised circumferentially, and once it was completely transected, it was passed off to the [facility] as a specimen. At this point in time, the colostomy site was closed with 3 [id number] sutures of #1 Prolene. Once it was accomplished, the fascial layer in the midline incision was closed with several interrupted 0 Prolene sutures in a [id number] fashion. Once this was accomplished, sutures were tied down and attention was turned to the site of the colostomy. Three interrupted 0 Prolene sutures were placed in the fascial layer of the colostomy site. Once this was accomplished, the patient's wounds were irrigated and dried and steffany were applied to approximate the skin. The patient's abdomen was washed and dried and clean dressing with 4x4's and some tape were applied to the site of the incisions. The patient was successfully extubated by the anesthesia team, transferred to the stretcher and taken to the recovery room in a stable condition. At the end of the procedure, all instrument counts, needles, and sponges were correct. Jay Slaughter MD
[2018-03-19 08:03] LABS: MEAN CELL VOLUME 91.3 fl (80.0-94.0)
[2018-03-19 08:21] LABS: ALB/GLOB RATIO 1.2 (1.0-2.1); ALBUMIN 3.5 g/dL (3.5-5.0); ALT/SGPT 20 U/L (21-72); AST/SGOT 28 U/L (17-59); BLOOD UREA NITROGEN 18 mg/dl (9-20); CALCIUM 8.7 mg/dL (8.4-10.2); GFR NON-AFRICAN AMERICAN > 60
[2018-03-19] MEDS: Enoxaparin 40 mg Syringe SC SCH (08:48)
[2018-03-19] MEDS: Metoprolol Succinate 50 mg XL Tab PO SCH (08:50)
--- NOTE | 2018-03-19 09:36 | CP.PCM.PN ---
Subjective - Date & Time of Evaluation Date of Evaluation: 03/19/18 Time of Evaluation: 09:30 - Subjective Subjective: General Surgery Pt seen and examined this AM. He reports having some abdominal cramping and feeling gassy. (-) flatus, (-) BM. Denies N/V. Had clear liquids this AM and started on Lovenox. He has been afebrile. Has had good urine output 1000ml. Labs and vitals noted PE Gen: Pt laying in bed in NAD Skin: warm and dry, dressings over incisions Cardio: s1s2 RRR Lungs: CTA bilaterally Abd: Soft, (+) distended, (+) mild generalized tenderness, most tender near incisions : (+) cooper with clear yellow urine. Extr: (-) calf tenderness, swelling or erythema. A/P POD 1 Reversal of Dolly's and repair of mesh Continue clear liquids Cooper to be removed today. Encourage OOB Encourage IS Continue pains meds prn Continue IVF today Monitor bowel function Monitor labs Continue DVT prophlaxis Objective - Vital Signs/Intake and Output Vital Signs (last 24 hours): Temp Pulse Resp BP Pulse Ox 97.9 F 59 L 20 96/60 L 97 03/19/18 08:33 03/19/18 08:33 03/19/18 08:33 03/19/18 08:50 03/19/18 08:33 Intake and Output: 03/19/18 03/19/18 06:59 18:59 Output Total 1000 Balance -1000 - Medications Medications: Current Medications Aspirin (Ecotrin) 81 mg PO DAILY [facility] Last Admin: 03/19/18 08:48 Dose: 81 mg Enoxaparin Sodium (Lovenox) 40 mg SC DAILY [facility]; Protocol Last Admin: 03/19/18 08:48 Dose: 40 mg Gabapentin (Neurontin) 600 mg PO TID [facility] Last Admin: 03/19/18 08:49 Dose: 600 mg Hydromorphone HCl (Dilaudid) 0.5 mg IVP Q3 PRN PRN Reason: Pain, severe (8-10) Last Admin: 03/19/18 08:42 Dose: 0.5 mg Dextrose/Sodium Chloride (Dextrose 5%-0.45% Ns 500 Ml) 500 mls @ 125 mls/hr IV .Q4H [facility] Stop: 03/20/18 07:43 Last Admin: 03/19/18 08:46 Dose: 125 mls/hr Metoprolol Succinate (Toprol Xl) 50 mg PO DAILY [facility] Last Admin: 03/19/18 08:50 Dose: Not Given Ondansetron HCl (Zofran Inj) 4 mg IVP ONCE PRN PRN Reason: Nausea/Vomiting Last Admin: 03/18/18 21:15 Dose: 4 mg Oxycodone/Acetaminophen (Percocet 5/325 Mg Tab) 1 tab PO Q4 PRN PRN Reason: Pain, moderate (4-7) Stop: 03/22/18 07:40 Zolpidem Tartrate (Ambien) 5 mg PO HS PRN PRN Reason: Insomnia - Labs Labs: 03/19/18 07:53 03/19/18 07:53
[2018-03-19 09:57] LABS: LYMPHOCYTE 6 % (20-50); MONOCYTE 4 % (0-10); NEUTROPHIL 90 % (42-75); PLATELET ESTIMATE NORMAL (NORMAL); TOTAL CELLS COUNTED 100
[2018-03-19] MEDS: Simethicone 80 mg Chewtab PO SCH ×2 (17:24→21:01)
[2018-03-19] MEDS: Oxycodone/Acetaminophen 5/325 mg Tab PO PRN ×2 (18:46→23:45)
[2018-03-20] MEDS: Oxycodone/Acetaminophen 5/325 mg Tab PO PRN ×2 (03:51→12:42)
[2018-03-20 06:59] LABS: BASO % 0.2 % (0.0-2.0); EOS # 0.1 K/uL (0.0-0.7); EOS % 1.7 % (0.0-4.0); HEMOGLOBIN 12.4 g/dL (12.0-18.0); LYMPH # 0.8 K/uL (1.0-4.3); LYMPH % 11.1 % (20.0-40.0); MEAN CELL VOLUME 90.1 fl (80.0-94.0); MEAN CORPUSCULAR HEMOGLOBIN 31.4 pg (27.0-31.0); MEAN CORPUSCULAR HGB CONC 34.9 g/dL (33.0-37.0); MONO # 0.6 K/uL (0.0-0.8); MONO % 8.3 % (0.0-10.0); NEUT # 5.6 K/uL (1.8-7.0); NEUT % 78.7 % (50.0-75.0); RBC 3.94 Mil/uL (4.40-5.90); RED CELL DISTRIBUTION WIDTH 12.7 % (11.5-14.5); WHITE BLOOD COUNT 7.1 K/uL (4.8-10.8)
[2018-03-20 07:25] LABS: BLOOD UREA NITROGEN 10 mg/dl (9-20); CALCIUM 8.5 mg/dL (8.4-10.2); GFR NON-AFRICAN AMERICAN > 60
[2018-03-20] MEDS: Enoxaparin 40 mg Syringe SC SCH (08:47)
--- NOTE | 2018-03-20 08:47 | CP.PCM.PN ---
Subjective - Date & Time of Evaluation Date of Evaluation: 03/20/18 Time of Evaluation: 07:05 - Subjective Subjective: Patient seen and examined. No acute events over night. Patient tolerating liquid diet. Denies passing flatus or having BM. Denies nausea/vomiting. Slight erythema noted along periphery of stoma closure site, scant serosanguinous fluid expressed. Objective - Vital Signs/Intake and Output Vital Signs (last 24 hours): Temp Pulse Resp BP Pulse Ox 98.1 F 94 H 20 114/69 95 03/19/18 23:49 03/19/18 23:49 03/19/18 23:49 03/19/18 23:49 03/19/18 23:49 - Medications Medications: Current Medications Aspirin (Ecotrin) 81 mg PO DAILY [facility] Last Admin: 03/19/18 08:48 Dose: 81 mg Enoxaparin Sodium (Lovenox) 40 mg SC DAILY [facility]; Protocol Last Admin: 03/19/18 08:48 Dose: 40 mg Gabapentin (Neurontin) 600 mg PO TID [facility] Last Admin: 03/19/18 16:15 Dose: 600 mg Hydromorphone HCl (Dilaudid) 0.5 mg IVP Q3 PRN PRN Reason: Pain, severe (8-10) Last Admin: 03/19/18 18:01 Dose: 0.5 mg Metoprolol Succinate (Toprol Xl) 50 mg PO DAILY [facility] Last Admin: 03/19/18 08:50 Dose: Not Given Ondansetron HCl (Zofran Inj) 4 mg IVP ONCE PRN PRN Reason: Nausea/Vomiting Last Admin: 03/18/18 21:15 Dose: 4 mg Oxycodone/Acetaminophen (Percocet 5/325 Mg Tab) 1 tab PO Q4 PRN PRN Reason: Pain, moderate (4-7) Stop: 03/22/18 07:40 Last Admin: 03/20/18 03:51 Dose: 1 tab Simethicone (Mylicon Chew Tab) 80 mg PO [facility] Last Admin: 03/19/18 21:01 Dose: 80 mg Zolpidem Tartrate (Ambien) 5 mg PO [facility] Last Admin: 03/19/18 21:01 Dose: 5 mg - Labs Labs: 03/20/18 06:20 03/20/18 06:20 - Constitutional Appears: Non-toxic, No Acute Distress - Head Exam Head Exam: NORMOCEPHALIC - Eye Exam Eye Exam: EOMI, Normal appearance - ENT Exam ENT Exam: Mucous Membranes Moist - Respiratory Exam Respiratory Exam: NORMAL BREATHING PATTERN - Cardiovascular Exam Cardiovascular Exam: +S1, +S2 - GI/Abdominal Exam GI & Abdominal Exam: Soft, Tenderness. absent: Distended, Guarding, Rigid, Rebound Additional comments: incisional site tenderness Slight erythema along periphery of stoma site reversal in LLQ - Neurological Exam Neurological Exam: Alert, Awake, Oriented x3 - Psychiatric Exam Psychiatric exam: Normal Mood - Skin Skin Exam: Dry, Intact, Warm Assessment and Plan - Assessment and Plan (Free Text) Assessment: 62M s/p Dolly's reversal w/ mesh repair POD2 Plan: liquid diet Anti-emetics prn Analgesics prn DVT ppx Encourage IS use Encourage ambulation Monitor bowel function Further recs per Dr. Kasandra Gabriel PGY3
[2018-03-20] MEDS: Metoprolol Succinate 50 mg XL Tab PO SCH (08:55)
[2018-03-20] MEDS: Simethicone 80 mg Chewtab PO SCH ×4 (08:55→22:05)
--- NOTE | 2018-03-20 11:16 | CP.PCM.PN ---
Subjective - Date & Time of Evaluation Date of Evaluation: 03/20/18 Time of Evaluation: 11:13 - Subjective Subjective: General Surgery Pt seen and examined this AM. He reports having abdominal pain at the llq incision site and still continues to feel bloated. Last night he reports having a panic attack, the first one he ever had, and reports he feels better today. He was afebrile overnight. (-) flatus, (-) BM. Labs and vitals noted. (-) tachycardia. PE Gen: Pt laying in bed in NAD Skin: warm and dry, see abd Cardio:s1s2 RRR Lungs: CTA bilaterally Abd: Soft, (+) generalized tenderness with the most tenderness at the LLQ incision. Incisions x 2 stapled. The incision at the stoma site with mild erythema and serosanguinous drainage on gauze. Midline incision with dry blood only. Extr: (-) calf tenderness bilaterally A/P POD2 Reversal of Dolly's and repair of mesh Continue clear liquids Monitor incision drainage Encourage OOB Encourage IS Continue pains meds prn Continue IVF today Monitor bowel function Monitor labs Continue DVT prophlaxis Objective - Vital Signs/Intake and Output Vital Signs (last 24 hours): Temp Pulse Resp BP Pulse Ox 99.5 F 79 20 114/75 95 03/20/18 08:56 03/20/18 08:56 03/20/18 08:56 03/20/18 08:56 03/20/18 08:56 - Medications Medications: Current Medications Aspirin (Ecotrin) 81 mg PO DAILY [facility] Last Admin: 03/20/18 08:47 Dose: 81 mg Enoxaparin Sodium (Lovenox) 40 mg SC DAILY [facility]; Protocol Last Admin: 03/20/18 08:47 Dose: 40 mg Gabapentin (Neurontin) 600 mg PO TID [facility] Last Admin: 03/20/18 08:47 Dose: 600 mg Hydromorphone HCl (Dilaudid) 0.5 mg IVP Q3 PRN PRN Reason: Pain, severe (8-10) Last Admin: 03/20/18 08:46 Dose: 0.5 mg Metoprolol Succinate (Toprol Xl) 50 mg PO DAILY [facility] Last Admin: 03/20/18 08:55 Dose: 50 mg Ondansetron HCl (Zofran Inj) 4 mg IVP ONCE PRN PRN Reason: Nausea/Vomiting Last Admin: 03/18/18 21:15 Dose: 4 mg Oxycodone/Acetaminophen (Percocet 5/325 Mg Tab) 1 tab PO Q4 PRN PRN Reason: Pain, moderate (4-7) Stop: 03/22/18 07:40 Last Admin: 03/20/18 03:51 Dose: 1 tab Simethicone (Mylicon Chew Tab) [address] [facility] Last Admin: 03/20/18 08:55 Dose: 80 mg Zolpidem Tartrate (Ambien) 5 mg PO [facility] Last Admin: 03/19/18 21:01 Dose: 5 mg - Labs Labs: 03/20/18 06:20 03/20/18 06:20
[2018-03-20] MEDS ORDERED: Potassium Chl 20 mEq in D5-NS 1,000 ML IV SCH (12:15)
--- NOTE | 2018-03-20 21:13 | CP.PCM.PN ---
Subjective - Date & Time of Evaluation Date of Evaluation: 03/20/18 Time of Evaluation: 21:12 - Subjective Subjective: doing well no distress no fcnvd not passing gas/bm labs and surgiczl notes reviewed Objective - Vital Signs/Intake and Output Vital Signs (last 24 hours): Temp Pulse Resp BP Pulse Ox 98.3 F 74 18 120/73 94 L 03/20/18 16:43 03/20/18 16:43 03/20/18 16:43 03/20/18 16:43 03/20/18 16:43 - Medications Medications: Current Medications Aspirin (Ecotrin) 81 mg PO DAILY [facility] Last Admin: 03/20/18 08:47 Dose: 81 mg Enoxaparin Sodium (Lovenox) 40 mg SC DAILY [facility]; Protocol Last Admin: 03/20/18 08:47 Dose: 40 mg Gabapentin (Neurontin) 600 mg PO TID [facility] Last Admin: 03/20/18 17:01 Dose: 600 mg Hydromorphone HCl (Dilaudid) 0.5 mg IVP Q3 PRN PRN Reason: Pain, severe (8-10) Last Admin: 03/20/18 15:13 Dose: 0.5 mg Potassium Chloride/Dextrose/Sod Cl (Potassium Chl 20 Meq In D5-Ns) 1,000 mls @ 80 mls/hr IV .[id number] [facility] Stop: 03/21/18 12:15 Metoprolol Succinate (Toprol Xl) 50 mg PO DAILY [facility] Last Admin: 03/20/18 08:55 Dose: 50 mg Ondansetron HCl (Zofran Inj) 4 mg IVP ONCE PRN PRN Reason: Nausea/Vomiting Last Admin: 03/18/18 21:15 Dose: 4 mg Oxycodone/Acetaminophen (Percocet 5/325 Mg Tab) 1 tab PO Q4 PRN PRN Reason: Pain, moderate (4-7) Stop: 03/22/18 07:40 Last Admin: 03/20/18 12:42 Dose: 1 tab Simethicone (Mylicon Chew Tab) 80 mg PO [facility] Last Admin: 03/20/18 17:01 Dose: 80 mg Zolpidem Tartrate (Ambien) 5 mg PO [facility] Last Admin: 03/19/18 21:01 Dose: 5 mg - Labs Labs: 03/20/18 06:20 03/20/18 06:20
[2018-03-21] MEDS: Enoxaparin 40 mg Syringe SC SCH (08:46)
[2018-03-21] MEDS: Metoprolol Succinate 50 mg XL Tab PO SCH (08:46)
[2018-03-21] MEDS: Simethicone 80 mg Chewtab PO SCH ×4 (08:48→22:56)
--- NOTE | 2018-03-21 08:55 | PQF ---
PROVIDER RESPONSE TEXT: h/o divertic w/ perf, not active REVIEWER QUERY TEXT: Conflicting Documentation Clarification Current diagnosis of Diverticulitis of colon with perforation versus History of Diverticulitis of colon with perforation: (with a current dx. of Diverticulitis) -- Other, please specify H and P includes: Diverticulitis of colon with perforation Draft Op note includes; known to me from his prior admission to [facility] last year when he p resented with perforated diverticulitis and was taken to the operative room and underwent Dolly's procedure. PREOPERATIVE DIAGNOSIS: Diverticular disease. POSTOPERATIVE DIAGNOSIS: Diverticular disease. PROCEDURE: Reversal of Dolly's procedure, reversal of colostomy and extensive lysis of adhesion s. The patient's Clinical Indicators include: --- Query created by: Jenna Limon on 03/20/2018 1:28 PM Electronically signed by: Jacques Hanson APN 03/21/2018 8:51 AM
--- NOTE | 2018-03-21 09:01 | CP.PCM.PN ---
Subjective - Date & Time of Evaluation Date of Evaluation: 03/21/18 Time of Evaluation: 09:00 - Subjective Subjective: pt doing well.pain controlled. no f/c, n/v/d. still not passing flatus/bm. bw noted surgical consults reviewed Objective - Vital Signs/Intake and Output Vital Signs (last 24 hours): Temp Pulse Resp BP Pulse Ox 98.2 F 74 20 113/74 96 03/21/18 08:42 03/21/18 08:42 03/21/18 08:42 03/21/18 08:42 03/21/18 08:42 - Medications Medications: Current Medications Aspirin (Ecotrin) 81 mg PO DAILY [facility] Last Admin: 03/21/18 08:46 Dose: 81 mg Enoxaparin Sodium (Lovenox) 40 mg SC DAILY [facility]; Protocol Last Admin: 03/21/18 08:46 Dose: 40 mg Gabapentin (Neurontin) 600 mg PO TID [facility] Last Admin: 03/21/18 08:47 Dose: 600 mg Hydromorphone HCl (Dilaudid) 0.5 mg IVP Q3 PRN PRN Reason: Pain, severe (8-10) Last Admin: 03/21/18 08:44 Dose: 0.5 mg Potassium Chloride/Dextrose/Sod Cl (Potassium Chl 20 Meq In D5-Ns) 1,000 mls @ 80 mls/hr IV .[id number] [facility] Stop: 03/21/18 12:15 Metoprolol Succinate (Toprol Xl) 50 mg PO DAILY [facility] Last Admin: 03/21/18 08:46 Dose: 50 mg Ondansetron HCl (Zofran Inj) 4 mg IVP ONCE PRN PRN Reason: Nausea/Vomiting Last Admin: 03/18/18 21:15 Dose: 4 mg Oxycodone/Acetaminophen (Percocet 5/325 Mg Tab) 1 tab PO Q4 PRN PRN Reason: Pain, moderate (4-7) Stop: 03/22/18 07:40 Last Admin: 03/20/18 12:42 Dose: 1 tab Simethicone (Mylicon Chew Tab) 80 mg PO [facility] Last Admin: 03/21/18 08:48 Dose: 80 mg Zolpidem Tartrate (Ambien) 5 mg PO [facility] Last Admin: 03/20/18 23:12 Dose: 5 mg - Labs Labs: 03/20/18 06:20 03/20/18 06:20 - Constitutional Appears: Well, Non-toxic, No Acute Distress - Head Exam Head Exam: ATRAUMATIC, NORMAL INSPECTION, NORMOCEPHALIC - Eye Exam Eye Exam: EOMI, Normal appearance, PERRL Pupil Exam: NORMAL ACCOMODATION, PERRL - ENT Exam ENT Exam: Mucous Membranes Moist, Normal Exam - Neck Exam Neck Exam: Full ROM, Normal Inspection. absent: Lymphadenopathy - Respiratory Exam Respiratory Exam: Clear to Ausculation Bilateral, NORMAL BREATHING PATTERN - Cardiovascular Exam Cardiovascular Exam: REGULAR RHYTHM, RRR, +S1, +S2. absent: Murmur - GI/Abdominal Exam GI & Abdominal Exam: Soft, Tenderness, Normal Bowel Sounds Additional comments: surgical site c/d/i. stable intact no discharge difuse tenderness - Rectal Exam Rectal Exam: NORMAL INSPECTION - Extremities Exam Extremities Exam: Full ROM, Normal Capillary Refill, Normal Inspection. absent: Joint Swelling, Pedal Edema - Back Exam Back Exam: NORMAL INSPECTION - Neurological Exam Neurological Exam: Alert, Awake, CN II-XII Intact, Normal Gait, Oriented x3 - Psychiatric Exam Psychiatric exam: Normal Affect, Normal Mood - Skin Skin Exam: Dry, Intact, Normal Color, Warm Assessment and Plan (1) DVT prophylaxis Status: Acute (2) Diverticulitis of colon with perforation Status: Chronic - Assessment and Plan (Free Text) Assessment: (1) DVT prophylaxis Assessment and Plan: scd and aehose ambulation Status: Acute (2) Diverticulitis of colon with perforation Assessment and Plan: pain control s/p reversal of middleton dsg c/d/i monitor for bm. f/u labs Status: Acute
--- NOTE | 2018-03-21 09:02 | CP.PCM.PN ---
Subjective - Date & Time of Evaluation Date of Evaluation: 03/21/18 Time of Evaluation: 05:58 - Subjective Subjective: Patient seen and examined. No acute events over night. Denies passing flatus or having BM. Incisional sites are clean and dry, no active drainage noted. Objective - Vital Signs/Intake and Output Vital Signs (last 24 hours): Temp Pulse Resp BP Pulse Ox 98.2 F 74 20 113/74 96 03/21/18 08:42 03/21/18 08:42 03/21/18 08:42 03/21/18 08:42 03/21/18 08:42 - Medications Medications: Current Medications Aspirin (Ecotrin) 81 mg PO DAILY [facility] Last Admin: 03/21/18 08:46 Dose: 81 mg Enoxaparin Sodium (Lovenox) 40 mg SC DAILY [facility]; Protocol Last Admin: 03/21/18 08:46 Dose: 40 mg Gabapentin (Neurontin) 600 mg PO TID [facility] Last Admin: 03/21/18 08:47 Dose: 600 mg Hydromorphone HCl (Dilaudid) 0.5 mg IVP Q3 PRN PRN Reason: Pain, severe (8-10) Last Admin: 03/21/18 08:44 Dose: 0.5 mg Potassium Chloride/Dextrose/Sod Cl (Potassium Chl 20 Meq In D5-Ns) 1,000 mls @ 80 mls/hr IV .[id number] [facility] Stop: 03/21/18 12:15 Metoprolol Succinate (Toprol Xl) 50 mg PO DAILY [facility] Last Admin: 03/21/18 08:46 Dose: 50 mg Ondansetron HCl (Zofran Inj) 4 mg IVP ONCE PRN PRN Reason: Nausea/Vomiting Last Admin: 03/18/18 21:15 Dose: 4 mg Oxycodone/Acetaminophen (Percocet 5/325 Mg Tab) 1 tab PO Q4 PRN PRN Reason: Pain, moderate (4-7) Stop: 03/22/18 07:40 Last Admin: 03/20/18 12:42 Dose: 1 tab Simethicone (Mylicon Chew Tab) 80 mg PO [facility] Last Admin: 03/21/18 08:48 Dose: 80 mg Zolpidem Tartrate (Ambien) 5 mg PO [facility] Last Admin: 01/18/19 23:12 Dose: 5 mg - Labs Labs: 03/20/18 06:20 03/20/18 06:20 - Constitutional Appears: No Acute Distress - Head Exam Head Exam: NORMOCEPHALIC - Eye Exam Eye Exam: EOMI, Normal appearance - ENT Exam ENT Exam: Mucous Membranes Moist - Respiratory Exam Respiratory Exam: NORMAL BREATHING PATTERN - Cardiovascular Exam Cardiovascular Exam: +S1, +S2 - GI/Abdominal Exam GI & Abdominal Exam: Soft, Tenderness. absent: Distended, Guarding, Rigid (incisional site tenderness) - Neurological Exam Neurological Exam: Alert, Awake, Oriented x3 - Psychiatric Exam Psychiatric exam: Normal Mood - Skin Skin Exam: Dry, Intact, Warm Assessment and Plan - Assessment and Plan (Free Text) Assessment: 62M s/p Dolly's reversal w/ mesh repair Plan: Continue clear liquids IVF Encourage OOB Encourage IS Continue pains meds prn Monitor bowel function Monitor labs Continue DVT prophlaxis Further recs per Dr. Kasandra Gabriel PGY3
[2018-03-22] MEDS: Enoxaparin 40 mg Syringe SC SCH (08:18)
[2018-03-22] MEDS: Metoprolol Succinate 50 mg XL Tab PO SCH (08:20)
[2018-03-22] MEDS: Simethicone 80 mg Chewtab PO SCH ×4 (08:21→22:44)
--- NOTE | 2018-03-22 08:56 | CP.PCM.PN ---
Subjective - Date & Time of Evaluation Date of Evaluation: 03/22/18 Time of Evaluation: 07:10 - Subjective Subjective: General surgery progress note for Dr. Chris covering for Dr. Slaughter Pt see and examined at bedside this AM. No adverse events overnight. Patient complains of gas and belching and persistent LLQ currently controlled by pain regimen. Patient denies any nausea, vomiting, fevers or chills, has not passed flatus or BM. Objective - Vital Signs/Intake and Output Vital Signs (last 24 hours): Temp Pulse Resp BP Pulse Ox 98.5 F 73 20 116/74 95 03/22/18 08:46 03/22/18 08:46 03/22/18 08:46 03/22/18 08:46 03/22/18 08:46 - Medications Medications: Current Medications Aspirin (Ecotrin) 81 mg PO DAILY [facility] Last Admin: 03/22/18 08:20 Dose: 81 mg Docusate Sodium (Colace) 100 mg PO DAILY [facility] Enoxaparin Sodium (Lovenox) 40 mg SC DAILY [facility]; Protocol Last Admin: 03/22/18 08:18 Dose: 40 mg Gabapentin (Neurontin) 600 mg PO TID [facility] Last Admin: 03/22/18 08:18 Dose: 600 mg Hydromorphone HCl (Dilaudid) 0.5 mg IVP Q3 PRN PRN Reason: Pain, severe (8-10) Last Admin: 03/22/18 07:06 Dose: 0.5 mg Metoprolol Succinate (Toprol Xl) 50 mg PO DAILY [facility] Last Admin: 03/22/18 08:20 Dose: 50 mg Ondansetron HCl (Zofran Inj) 4 mg IVP ONCE PRN PRN Reason: Nausea/Vomiting Last Admin: 03/21/18 10:56 Dose: 4 mg Simethicone (Mylicon Chew Tab) 80 mg PO [facility] Last Admin: 03/22/18 08:21 Dose: 80 mg Zolpidem Tartrate (Ambien) 5 mg PO [facility] Last Admin: 03/22/18 00:03 Dose: 5 mg - Labs Labs: 03/20/18 06:20 03/20/18 06:20 - Constitutional Appears: Well, Non-toxic, No Acute Distress - Head Exam Head Exam: ATRAUMATIC, NORMOCEPHALIC - Eye Exam Eye Exam: Normal appearance. absent: Conjunctival injection, Scleral icterus - ENT Exam ENT Exam: Mucous Membranes Moist, Normal Oropharynx - Respiratory Exam Respiratory Exam: NORMAL BREATHING PATTERN. absent: Accessory Muscle Use, Respiratory Distress - Cardiovascular Exam Cardiovascular Exam: RRR - GI/Abdominal Exam GI & Abdominal Exam: Distended (moderate), Soft, Tenderness (moderately tenderness RUQ and LUQ). absent: Rebound Additional comments: incisions well approximated with steffany, minimal serosanguinous drainage, no surrounding erythema or fluctuance - Extremities Exam Extremities Exam: absent: Calf Tenderness, Pedal Edema, Tenderness - Neurological Exam Neurological Exam: Alert, Awake, Oriented x3 - Psychiatric Exam Psychiatric exam: Normal Affect, Normal Mood - Skin Skin Exam: Dry, Normal Color, Warm Assessment and Plan - Assessment and Plan (Free Text) Assessment: 62M POD#4 s/p colostomy reversal, reversal of kika's, and SRAVANTHI, still no significant bowel function Plan: Continue to monitor for bowel function F/U BMP, mag, phos Continue PRN pain and nausea medication--encourage PO pain medication use Continue CLD Continue ambulation and Incentive spirometer use Add colace Discussed with Dr. Chris, who agrees with above Litzy Watson, PGY2
[2018-03-22 10:30] LABS: BLOOD UREA NITROGEN 6 mg/dl (9-20); CALCIUM 8.6 mg/dL (8.4-10.2); GFR NON-AFRICAN AMERICAN > 60
[2018-03-22] MEDS: Potassium Ch 20mEq in D5-1/2NS 1,000 ML IV SCH ×2 (15:38→22:45)
--- NOTE | 2018-03-22 18:26 | CP.PCM.PN ---
Subjective - Date & Time of Evaluation Date of Evaluation: 03/22/18 Time of Evaluation: 18:26 - Subjective Subjective: doing well still wo flstus or bm no fcnvd diana po pain controlled Objective - Vital Signs/Intake and Output Vital Signs (last 24 hours): Temp Pulse Resp BP Pulse Ox 98.4 F 68 18 114/74 95 03/22/18 16:09 03/22/18 16:09 03/22/18 16:09 03/22/18 16:09 03/22/18 16:09 Intake and Output: 03/22/18 03/22/18 06:59 18:59 Intake Total 1500 Balance 1500 - Medications Medications: Current Medications Aspirin (Ecotrin) 81 mg PO DAILY [facility] Last Admin: 03/22/18 08:20 Dose: 81 mg Docusate Sodium (Colace) 100 mg PO DAILY [facility] Last Admin: 03/22/18 11:58 Dose: 100 mg Enoxaparin Sodium (Lovenox) 40 mg SC DAILY [facility]; Protocol Gabapentin (Neurontin) 600 mg PO TID [facility] Last Admin: 03/22/18 17:04 Dose: 600 mg Hydromorphone HCl (Dilaudid) 0.5 mg IVP Q3 PRN PRN Reason: Pain, severe (8-10) Last Admin: 03/22/18 15:40 Dose: 0.5 mg Potassium Chloride/Dextrose/Sod Cl (Potassium Chl 20 Meq In D5-1/2ns) 1,000 mls @ 125 mls/hr IV .Q8H [facility] Stop: 03/24/18 12:29 Last Admin: 03/22/18 15:38 Dose: 125 mls/hr Metoprolol Succinate (Toprol Xl) 50 mg PO DAILY [facility] Last Admin: 03/22/18 08:20 Dose: 50 mg Ondansetron HCl (Zofran Inj) 4 mg IVP ONCE PRN PRN Reason: Nausea/Vomiting Last Admin: 03/21/18 10:56 Dose: 4 mg Oxycodone/Acetaminophen (Percocet 5/325 Mg Tab) 1 tab PO Q4 PRN PRN Reason: Pain, moderate (4-7) Stop: 03/25/18 09:00 Simethicone (Mylicon Chew Tab) 80 mg PO [facility] Last Admin: 03/22/18 17:04 Dose: 80 mg Zolpidem Tartrate (Ambien) 5 mg PO [facility] Last Admin: 03/22/18 00:03 Dose: 5 mg - Labs Labs: 03/20/18 06:20 03/22/18 09:40
[2018-03-23] MEDS: Oxycodone/Acetaminophen 5/325 mg Tab PO PRN ×2 (04:09→09:04)
[2018-03-23 06:50] LABS: BASO % 0.2 % (0.0-2.0); EOS # 0.2 K/uL (0.0-0.7); EOS % 3.8 % (0.0-4.0); HEMOGLOBIN 12.2 g/dL (12.0-18.0); LYMPH # 0.4 K/uL (1.0-4.3); LYMPH % 7.3 % (20.0-40.0); MEAN CELL VOLUME 89.9 fl (80.0-94.0); MEAN CORPUSCULAR HEMOGLOBIN 31.2 pg (27.0-31.0); MEAN CORPUSCULAR HGB CONC 34.7 g/dL (33.0-37.0); MEAN PLATELET VOLUME 6.7 fl (7.2-11.7); MONO # 0.5 K/uL (0.0-0.8); MONO % 8.7 % (0.0-10.0); NEUT # 4.7 K/uL (1.8-7.0); NRBC % 0.1 % (0.0-0.0); PLATELET COUNT 239 K/uL (130-400); RBC 3.92 Mil/uL (4.40-5.90); RED CELL DISTRIBUTION WIDTH 12.9 % (11.5-14.5); WHITE BLOOD COUNT 5.8 K/uL (4.8-10.8)
[2018-03-23 06:57] LABS: BLOOD UREA NITROGEN 7 mg/dl (9-20); CALCIUM 8.9 mg/dL (8.4-10.2); GFR NON-AFRICAN AMERICAN > 60
[2018-03-23] MEDS: Potassium Ch 20mEq in D5-1/2NS 1,000 ML IV SCH ×3 (07:00→17:16)
--- NOTE | 2018-03-23 08:20 | CP.PCM.PN ---
Subjective - Date & Time of Evaluation Date of Evaluation: 03/23/18 Time of Evaluation: 08:19 - Subjective Subjective: pt doing well. passing flatus no bm. no f/,c n/v/d. still c/o pain at surgical site. c/d/i w/o discharge. bw noted Objective - Vital Signs/Intake and Output Vital Signs (last 24 hours): Temp Pulse Resp BP Pulse Ox 98.4 F 79 18 118/64 95 03/23/18 05:00 03/23/18 05:00 03/23/18 05:00 03/23/18 05:00 03/23/18 05:00 - Medications Medications: Current Medications Aspirin (Ecotrin) 81 mg PO DAILY [facility] Last Admin: 03/22/18 08:20 Dose: 81 mg Docusate Sodium (Colace) 100 mg PO DAILY [facility] Last Admin: 03/22/18 11:58 Dose: 100 mg Enoxaparin Sodium (Lovenox) 40 mg SC DAILY [facility]; Protocol Gabapentin (Neurontin) 600 mg PO TID [facility] Last Admin: 03/22/18 17:04 Dose: 600 mg Hydromorphone HCl (Dilaudid) 0.5 mg IVP Q3 PRN PRN Reason: Pain, severe (8-10) Last Admin: 03/22/18 19:27 Dose: 0.5 mg Potassium Chloride/Dextrose/Sod Cl (Potassium Chl 20 Meq In D5-1/2ns) 1,000 mls @ 125 mls/hr IV .Q8H [facility] Stop: 03/24/18 12:29 Last Admin: 03/23/18 07:00 Dose: 125 mls/hr Metoprolol Succinate (Toprol Xl) 50 mg PO DAILY [facility] Last Admin: 03/22/18 08:20 Dose: 50 mg Ondansetron HCl (Zofran Inj) 4 mg IVP ONCE PRN PRN Reason: Nausea/Vomiting Last Admin: 03/21/18 10:56 Dose: 4 mg Oxycodone/Acetaminophen (Percocet 5/325 Mg Tab) 1 tab PO Q4 PRN PRN Reason: Pain, moderate (4-7) Stop: 03/25/18 09:00 Last Admin: 03/23/18 04:09 Dose: 1 tab Simethicone (Mylicon Chew Tab) 80 mg PO [facility] Last Admin: 03/22/18 22:44 Dose: 80 mg Zolpidem Tartrate (Ambien) 5 mg PO [facility] Last Admin: 03/22/18 22:45 Dose: 5 mg - Labs Labs: 03/23/18 06:32 03/23/18 06:32 - Constitutional Appears: Well, Non-toxic, No Acute Distress - Head Exam Head Exam: ATRAUMATIC, NORMAL INSPECTION, NORMOCEPHALIC - Eye Exam Eye Exam: EOMI, Normal appearance, PERRL Pupil Exam: NORMAL ACCOMODATION, PERRL - ENT Exam ENT Exam: Mucous Membranes Moist, Normal Exam - Neck Exam Neck Exam: Full ROM, Normal Inspection. absent: Lymphadenopathy - Respiratory Exam Respiratory Exam: Clear to Ausculation Bilateral, NORMAL BREATHING PATTERN - Cardiovascular Exam Cardiovascular Exam: REGULAR RHYTHM, RRR, +S1, +S2. absent: Murmur - GI/Abdominal Exam GI & Abdominal Exam: Soft, Normal Bowel Sounds. absent: Tenderness Additional comments: surgical site c /d/i - Rectal Exam Rectal Exam: NORMAL INSPECTION - Extremities Exam Extremities Exam: Full ROM, Normal Capillary Refill, Normal Inspection. absent: Joint Swelling, Pedal Edema - Back Exam Back Exam: NORMAL INSPECTION - Neurological Exam Neurological Exam: Alert, Awake, CN II-XII Intact, Normal Gait, Oriented x3 - Psychiatric Exam Psychiatric exam: Normal Affect, Normal Mood - Skin Skin Exam: Dry, Intact, Normal Color, Warm Assessment and Plan (1) DVT prophylaxis Assessment & Plan: scd and ae hose lovenox Status: Acute (2) Diverticulitis of colon with perforation Assessment & Plan: pain control monitor for bowel function surgery adv diet as per surg and pt toleranace Status: Chronic
[2018-03-23] MEDS: Simethicone 80 mg Chewtab PO SCH ×4 (09:09→21:50)
[2018-03-23] MEDS: Metoprolol Succinate 50 mg XL Tab PO SCH (09:10)
[2018-03-23] MEDS: Enoxaparin 40 mg Syringe SC SCH (09:12)
--- NOTE | 2018-03-23 09:32 | CP.PCM.PN ---
<Farhad Douglas - Last Filed: 03/23/18 09:33> Subjective - Date & Time of Evaluation Date of Evaluation: 03/23/18 Time of Evaluation: 06:50 - Subjective Subjective: Patient seen and examined. No acute events over night. Reports some nausea. Incisional site pain. Denies vomiting. Passing flatus. Tolerating liquids. Objective - Vital Signs/Intake and Output Vital Signs (last 24 hours): Temp Pulse Resp BP Pulse Ox 98.2 F 79 20 118/64 98 03/23/18 09:00 03/23/18 09:10 03/23/18 09:00 03/23/18 09:10 03/23/18 09:00 - Medications Medications: Current Medications Aspirin (Ecotrin) 81 mg PO DAILY [facility] Last Admin: 03/23/18 09:09 Dose: 81 mg Docusate Sodium (Colace) 100 mg PO DAILY [facility] Last Admin: 03/23/18 09:09 Dose: 100 mg Enoxaparin Sodium (Lovenox) 40 mg SC DAILY [facility]; Protocol Last Admin: 03/23/18 09:12 Dose: 40 mg Gabapentin (Neurontin) 600 mg PO TID [facility] Last Admin: 03/23/18 09:14 Dose: 600 mg Hydromorphone HCl (Dilaudid) 0.5 mg IVP Q3 PRN PRN Reason: Pain, severe (8-10) Last Admin: 03/22/18 19:27 Dose: 0.5 mg Potassium Chloride/Dextrose/Sod Cl (Potassium Chl 20 Meq In D5-1/2ns) 1,000 mls @ 125 mls/hr IV .Q8H [facility] Stop: 03/24/18 12:29 Last Admin: 03/23/18 07:00 Dose: 125 mls/hr Metoprolol Succinate (Toprol Xl) 50 mg PO DAILY [facility] Last Admin: 03/23/18 09:10 Dose: 50 mg Ondansetron HCl (Zofran Inj) 4 mg IVP ONCE PRN PRN Reason: Nausea/Vomiting Last Admin: 03/23/18 09:01 Dose: 4 mg Oxycodone/Acetaminophen (Percocet 5/325 Mg Tab) 1 tab PO Q4 PRN PRN Reason: Pain, moderate (4-7) Stop: 03/25/18 09:00 Last Admin: 03/23/18 09:04 Dose: 1 tab Simethicone (Mylicon Chew Tab) 80 mg PO [facility] Last Admin: 03/23/18 09:09 Dose: 80 mg Zolpidem Tartrate (Ambien) 5 mg PO [facility] Last Admin: 03/22/18 22:45 Dose: 5 mg - Labs Labs: 03/23/18 06:32 03/23/18 06:32 - Constitutional Appears: No Acute Distress - Eye Exam Eye Exam: Normal appearance - ENT Exam ENT Exam: Mucous Membranes Moist - Respiratory Exam Respiratory Exam: NORMAL BREATHING PATTERN - Cardiovascular Exam Cardiovascular Exam: +S1, +S2 - GI/Abdominal Exam GI & Abdominal Exam: Soft, Tenderness. absent: Firm, Guarding, Rigid, Rebound Additional comments: incision site tenderness - Neurological Exam Neurological Exam: Alert, Awake, Oriented x3 - Skin Skin Exam: Dry, Intact, Warm Assessment and Plan - Assessment and Plan (Free Text) Assessment: 62M s/p Dolyl's reversal POD5 Plan: regular diet DVT ppx antiemetics prn Encourage ambulation Further recs per Dr. Kasandra Gabriel PGY 3 <Jay Slaughter - Last Filed: 03/23/18 10:15> Subjective - Date & Time of Evaluation Time of Evaluation: 10:00 - Subjective Subjective: Patient was seen and examined at the bedside. Agree with resident's note above. C/o nausea, passing flatus, no bowel movements yet. Objective - Vital Signs/Intake and Output Vital Signs (last 24 hours): Temp Pulse Resp BP Pulse Ox 98.2 F 79 20 118/64 98 03/23/18 09:00 03/23/18 09:10 03/23/18 09:00 03/23/18 09:10 03/23/18 09:00 - Medications Medications: Current Medications Aspirin (Ecotrin) 81 mg PO DAILY [facility] Last Admin: 03/23/18 09:09 Dose: 81 mg Docusate Sodium (Colace) 100 mg PO DAILY [facility] Last Admin: 03/23/18 09:09 Dose: 100 mg Enoxaparin Sodium (Lovenox) 40 mg SC DAILY [facility]; Protocol Last Admin: 03/23/18 09:12 Dose: 40 mg Gabapentin (Neurontin) 600 mg PO TID [facility] Last Admin: 03/23/18 09:14 Dose: 600 mg Hydromorphone HCl (Dilaudid) 0.5 mg IVP Q3 PRN PRN Reason: Pain, severe (8-10) Last Admin: 03/22/18 19:27 Dose: 0.5 mg Potassium Chloride/Dextrose/Sod Cl (Potassium Chl 20 Meq In D5-1/2ns) 1,000 mls @ 125 mls/hr IV .Q8H [facility] Stop: 03/24/18 12:29 Last Admin: 03/23/18 07:00 Dose: 125 mls/hr Metoprolol Succinate (Toprol Xl) 50 mg PO DAILY [facility] Last Admin: 03/23/18 09:10 Dose: 50 mg Ondansetron HCl (Zofran Inj) 4 mg IVP ONCE PRN PRN Reason: Nausea/Vomiting Last Admin: 03/23/18 09:01 Dose: 4 mg Oxycodone/Acetaminophen (Percocet 5/325 Mg Tab) 1 tab PO Q4 PRN PRN Reason: Pain, moderate (4-7) Stop: 03/25/18 09:00 Last Admin: 03/23/18 09:04 Dose: 1 tab Simethicone (Mylicon Chew Tab) 80 mg PO [facility] Last Admin: 03/23/18 09:09 Dose: 80 mg Tramadol HCl (Ultram) 50 mg PO Q4 PRN PRN Reason: Pain, moderate (4-7) Zolpidem Tartrate (Ambien) 5 mg PO [facility] Last Admin: 03/22/18 22:45 Dose: 5 mg - Labs Labs: 03/23/18 06:32 03/23/18 06:32 - GI/Abdominal Exam Additional comments: soft, sameer-incisional tenderness, mildly distended, BS+, no rebound, no guarding, incisions clean, no erythema, no drainage, steffany in place Assessment and Plan - Assessment and Plan (Free Text) Plan: - Will keep on clear liquid diet for now - Pain control - IV fluids - Insentive spirometry - DVT ppx - Out of bed and ambulate - Repeat labs in am
[2018-03-23 11:28] LABS: EOSINOPHIL 2 % (0-7); LYMPHOCYTE 5 % (20-50); MONOCYTE 9 % (0-10); NEUTROPHIL 83 % (42-75); PLATELET ESTIMATE NORMAL (NORMAL); REACTIVE LYMPHOCYTES 1 % (0-0); TOTAL CELLS COUNTED 100
[2018-03-23 19:28] LABS: BASO % 0.2 % (0.0-2.0); EOS # 0.1 K/uL (0.0-0.7); HEMOGLOBIN 12.5 g/dL (12.0-18.0); LYMPH # 0.5 K/uL (1.0-4.3); LYMPH % 9.4 % (20.0-40.0); MEAN CELL VOLUME 88.2 fl (80.0-94.0); MEAN CORPUSCULAR HEMOGLOBIN 31.1 pg (27.0-31.0); MEAN CORPUSCULAR HGB CONC 35.3 g/dL (33.0-37.0); MEAN PLATELET VOLUME 6.3 fl (7.2-11.7); MONO # 0.6 K/uL (0.0-0.8); MONO % 11.2 % (0.0-10.0); NEUT # 3.8 K/uL (1.8-7.0); NEUT % 77.2 % (50.0-75.0); NRBC % 0.1 % (0.0-0.0); RBC 4.01 Mil/uL (4.40-5.90); RED CELL DISTRIBUTION WIDTH 12.5 % (11.5-14.5); WHITE BLOOD COUNT 4.9 K/uL (4.8-10.8)
[2018-03-24] MEDS: Dextrose 5%/0.45% NS 500 ML IV SCH ×4 (01:26→12:22)
[2018-03-24 06:49] LABS: BASO % 0.4 % (0.0-2.0); EOS # 0.1 K/uL (0.0-0.7); EOS % 3.4 % (0.0-4.0); HEMOGLOBIN 12.1 g/dL (12.0-18.0); LYMPH # 0.4 K/uL (1.0-4.3); LYMPH % 9.8 % (20.0-40.0); MEAN CELL VOLUME 86.4 fl (80.0-94.0); MEAN CORPUSCULAR HEMOGLOBIN 31.6 pg (27.0-31.0); MEAN CORPUSCULAR HGB CONC 36.5 g/dL (33.0-37.0); MEAN PLATELET VOLUME 6.4 fl (7.2-11.7); MONO # 0.5 K/uL (0.0-0.8); MONO % 13.7 % (0.0-10.0); NEUT # 2.9 K/uL (1.8-7.0); NEUT % 72.7 % (50.0-75.0); NRBC % 0.2 % (0.0-0.0); RBC 3.84 Mil/uL (4.40-5.90); RED CELL DISTRIBUTION WIDTH 12.5 % (11.5-14.5)
[2018-03-24 07:14] LABS: BLOOD UREA NITROGEN 9 mg/dl (9-20); CALCIUM 8.7 mg/dL (8.4-10.2); GFR NON-AFRICAN AMERICAN > 60
[2018-03-24 07:29] LABS: URINE BILIRUBIN NEGATIVE (NEGATIVE); URINE BLOOD NEGATIVE (NEGATIVE); URINE CLARITY CLEAR (Clear); URINE COLOR YELLOW (YELLOW); URINE GLUCOSE (UA) NEG (NEGATIVE); URINE LEUKOCYTE ESTERASE NEG Leu/uL (Negative); URINE PROTEIN NEGATIVE (NEGATIVE)
--- NOTE | 2018-03-24 07:55 | CP.PCM.PN ---
Subjective - Date & Time of Evaluation Date of Evaluation: 03/24/18 Time of Evaluation: 07:53 - Subjective Subjective: SURGERY NOTE FOR DR. JAQUEZ 62M seen and examined at bedside. Patient resting comfortably, had one episode of fever yesterday. States abdominal pain is same, denies nausea or vomiting. Tolerating current liquid diet. Admits to flatus but denies bowel movement. Objective - Vital Signs/Intake and Output Vital Signs (last 24 hours): Temp Pulse Resp BP Pulse Ox 98.5 F 64 18 108/70 96 03/24/18 01:00 03/24/18 01:00 03/24/18 01:00 03/24/18 01:00 03/24/18 01:00 Intake and Output: 03/24/18 03/24/18 06:59 18:59 Intake Total 1000 Balance 1000 - Medications Medications: Current Medications Acetaminophen (Tylenol 325mg Tab) 650 mg PO Q6 PRN PRN Reason: Fever >100.4 F Last Admin: 03/23/18 17:24 Dose: 650 mg Aspirin (Ecotrin) 81 mg PO [facility]ILY [facility] Last Admin: 03/23/18 09:09 Dose: 81 mg Docusate Sodium (Colace) 100 mg PO DAILY [facility] Last Admin: 03/23/18 09:09 Dose: 100 mg Enoxaparin Sodium (Lovenox) 40 mg SC DAILY [facility]; Protocol Last Admin: 03/23/18 09:12 Dose: 40 mg Gabapentin (Neurontin) 600 mg PO TID [facility] Last Admin: 03/23/18 17:29 Dose: 600 mg Hydromorphone HCl (Dilaudid) 0.5 mg IVP Q3 PRN PRN Reason: Pain, severe (8-10) Last Admin: 03/24/18 03:38 Dose: 0.5 mg Dextrose/Sodium Chloride (Dextrose 5%/0.45% Ns 1000 Ml) 500 mls @ 125 mls/hr IV .Q4H [facility] Stop: 03/24/18 15:43 Last Admin: 03/24/18 05:00 Dose: Not Given Metoprolol Succinate (Toprol Xl) 50 mg PO DAILY [facility] Last Admin: 03/23/18 09:10 Dose: 50 mg Ondansetron HCl (Zofran Inj) 4 mg IVP ONCE PRN PRN Reason: Nausea/Vomiting Last Admin: 03/23/18 09:01 Dose: 4 mg Oxycodone/Acetaminophen (Percocet 5/325 Mg Tab) 1 tab PO Q4 PRN PRN Reason: Pain, moderate (4-7) Stop: 03/25/18 09:00 Last Admin: 03/23/18 09:04 Dose: 1 tab Simethicone (Mylicon Chew Tab) 80 mg PO [facility] Last Admin: 03/23/18 21:50 Dose: 80 mg Tramadol HCl (Ultram) 50 mg PO Q4 PRN PRN Reason: Pain, moderate (4-7) Last Admin: 03/23/18 12:44 Dose: 50 mg Zolpidem Tartrate (Ambien) 5 mg PO [facility] Last Admin: 03/23/18 22:16 Dose: 5 mg - Labs Labs: 03/24/18 06:00 03/24/18 06:00 - Constitutional Appears: Non-toxic, No Acute Distress - Respiratory Exam Respiratory Exam: Clear to Ausculation Bilateral, NORMAL BREATHING PATTERN - Cardiovascular Exam Cardiovascular Exam: REGULAR RHYTHM, +S1, +S2 - GI/Abdominal Exam GI & Abdominal Exam: Soft, Tenderness (around site of prior stoma). absent: Distended, Firm, Guarding, Rigid, Rebound - Extremities Exam Extremities Exam: absent: Pedal Edema, Tenderness - Neurological Exam Neurological Exam: Alert, Awake - Skin Skin Exam: Dry, Intact, Normal Color, Warm Assessment and Plan - Assessment and Plan (Free Text) Assessment: 62M s/p colostomy reversal Plan: - continue liquids - pain control - await bowel function - f/u blood cx, urine cx - CXR ordered this AM Further recs discuss with Dr. Aries Camar[place], PGY3
[2018-03-24] MEDS: Enoxaparin 40 mg Syringe SC SCH (08:38)
[2018-03-24] MEDS: Metoprolol Succinate 50 mg XL Tab PO SCH (08:38)
[2018-03-24] MEDS: Simethicone 80 mg Chewtab PO SCH ×4 (08:44→21:01)
--- NOTE | 2018-03-24 08:56 | CP.PCM.PN ---
Subjective - Date & Time of Evaluation Date of Evaluation: 03/24/18 Time of Evaluation: 08:55 - Subjective Subjective: pt doing well. no f/c, n/v/d. had fever and nausea yesterday. bw and c/s ordered. cxr this am completed. lactate normal. no wbc count elevation abd soft/tender over surgical sites Objective - Vital Signs/Intake and Output Vital Signs (last 24 hours): Temp Pulse Resp BP Pulse Ox 98.5 F 71 20 123/81 94 L 03/24/18 08:15 03/24/18 08:38 03/24/18 08:15 03/24/18 08:38 03/24/18 08:15 Intake and Output: 03/24/18 03/24/18 06:59 18:59 Intake Total 1000 Balance 1000 - Medications Medications: Current Medications Acetaminophen (Tylenol 325mg Tab) 650 mg PO Q6 PRN PRN Reason: Fever >100.4 F Last Admin: 03/23/18 17:24 Dose: 650 mg Aspirin (Ecotrin) 81 mg PO DAILY [facility] Last Admin: 03/24/18 08:38 Dose: 81 mg Docusate Sodium (Colace) 100 mg PO DAILY [facility] Last Admin: 03/24/18 08:38 Dose: 100 mg Enoxaparin Sodium (Lovenox) 40 mg SC DAILY [facility]; Protocol Last Admin: 03/24/18 08:38 Dose: 40 mg Gabapentin (Neurontin) 600 mg PO TID [facility] Last Admin: 03/24/18 08:39 Dose: 600 mg Dextrose/Sodium Chloride (Dextrose 5%/0.45% Ns 1000 Ml) 500 mls @ 125 mls/hr IV .Q4H [facility] Stop: 03/24/18 15:43 Last Admin: 03/24/18 05:00 Dose: Not Given Metoprolol Succinate (Toprol Xl) 50 mg PO DAILY [facility] Last Admin: 03/24/18 08:38 Dose: 50 mg Ondansetron HCl (Zofran Inj) 4 mg IVP ONCE PRN PRN Reason: Nausea/Vomiting Last Admin: 03/23/18 09:01 Dose: 4 mg Oxycodone/Acetaminophen (Percocet 5/325 Mg Tab) 1 tab PO Q4 PRN PRN Reason: Pain, moderate (4-7) Stop: 03/25/18 09:00 Last Admin: 03/23/18 09:04 Dose: 1 tab Simethicone (Mylicon Chew Tab) 80 mg PO [facility] Last Admin: 03/24/18 08:44 Dose: 80 mg Tramadol HCl (Ultram) 50 mg PO Q4 PRN PRN Reason: Pain, moderate (4-7) Last Admin: 03/23/18 12:44 Dose: 50 mg - Labs Labs: 03/24/18 06:00 03/24/18 06:00 - Constitutional Appears: Well, Non-toxic, No Acute Distress - Head Exam Head Exam: ATRAUMATIC, NORMAL INSPECTION, NORMOCEPHALIC - Eye Exam Eye Exam: EOMI, Normal appearance, PERRL Pupil Exam: NORMAL ACCOMODATION, PERRL - ENT Exam ENT Exam: Mucous Membranes Moist, Normal Exam - Neck Exam Neck Exam: Full ROM, Normal Inspection. absent: Lymphadenopathy - Respiratory Exam Respiratory Exam: Clear to Ausculation Bilateral, NORMAL BREATHING PATTERN - Cardiovascular Exam Cardiovascular Exam: REGULAR RHYTHM, RRR, +S1, +S2. absent: Murmur - GI/Abdominal Exam GI & Abdominal Exam: Soft, Normal Bowel Sounds. absent: Tenderness Additional comments: gical site tender no dc - Rectal Exam Rectal Exam: NORMAL INSPECTION - Extremities Exam Extremities Exam: Full ROM, Normal Capillary Refill, Normal Inspection. absent: Joint Swelling, Pedal Edema - Back Exam Back Exam: Full ROM, NORMAL INSPECTION - Neurological Exam Neurological Exam: Alert, Awake, CN II-XII Intact, Normal Gait, Oriented x3 - Psychiatric Exam Psychiatric exam: Normal Affect, Normal Mood - Skin Skin Exam: Dry, Intact, Normal Color, Warm Assessment and Plan (1) DVT prophylaxis Assessment & Plan: scd nad aeh ose lovenox Status: Acute (2) Diverticulitis of colon with perforation Assessment & Plan: pain control surgery f/u liquids fever yesterday-bc and urine c/s pending. bw and urine noted cxr completed pending report Status: Chronic
--- NOTE | 2018-03-24 09:48 | RAD ---
Date of service: 03/24/2018 HISTORY: R/o pna COMPARISON: 01/30/2018 FINDINGS: LUNGS: No active pulmonary disease. PLEURA: No significant pleural effusion identified, no pneumothorax apparent. CARDIOVASCULAR: No aortic atherosclerotic calcification present. Normal cardiac size. No pulmonary vascular congestion. OSSEOUS STRUCTURES: No significant abnormalities. VISUALIZED UPPER ABDOMEN: Normal. OTHER FINDINGS: None. IMPRESSION: No active disease.
[2018-03-25] MEDS: Simethicone 80 mg Chewtab PO SCH ×2 (08:01→12:29)
[2018-03-25] MEDS: Enoxaparin 40 mg Syringe SC SCH (08:01)
[2018-03-25 08:03] VITALS: BP 115/69; PULSE 67
[2018-03-25] MEDS: Metoprolol Succinate 50 mg XL Tab PO SCH (08:03)
--- NOTE | 2018-03-25 08:22 | CP.PCM.PN ---
Subjective - Date & Time of Evaluation Date of Evaluation: 03/25/18 Time of Evaluation: 08:19 - Subjective Subjective: pt doign well. some bleeding form surgical site otherwise d/c/i. ?? r/t lovenox\ no f/c, n/v/d. bw noted. no further fevers, c/s to this time negative Objective - Vital Signs/Intake and Output Vital Signs (last 24 hours): Temp Pulse Resp BP Pulse Ox 98.1 F 67 18 115/69 95 03/24/18 23:45 03/25/18 08:03 03/24/18 23:45 03/25/18 08:03 03/24/18 23:45 Intake and Output: 03/25/18 03/25/18 06:59 18:59 Intake Total 475 Balance 475 - Medications Medications: Current Medications Acetaminophen (Tylenol 325mg Tab) 650 mg PO Q6 PRN PRN Reason: Fever >100.4 F Last Admin: 03/23/18 17:24 Dose: 650 mg Aspirin (Ecotrin) 81 mg PO DAILY [facility] Last Admin: 03/25/18 08:01 Dose: 81 mg Docusate Sodium (Colace) 100 mg PO DAILY [facility] Last Admin: 03/25/18 08:01 Dose: 100 mg Enoxaparin Sodium (Lovenox) 40 mg SC DAILY [facility]; Protocol Last Admin: 03/25/18 08:01 Dose: 40 mg Gabapentin (Neurontin) 600 mg PO TID [facility] Last Admin: 03/25/18 08:02 Dose: 600 mg Hydromorphone HCl (Dilaudid) 0.5 mg IVP Q3 PRN PRN Reason: Pain, severe (8-10) Last Admin: 03/25/18 07:59 Dose: 0.5 mg Metoprolol Succinate (Toprol Xl) 50 mg PO DAILY [facility] Last Admin: 03/25/18 08:03 Dose: 50 mg Ondansetron HCl (Zofran Inj) 4 mg IVP ONCE PRN PRN Reason: Nausea/Vomiting Last Admin: 03/23/18 09:01 Dose: 4 mg Oxycodone/Acetaminophen (Percocet 5/325 Mg Tab) 1 tab PO Q4 PRN PRN Reason: Pain, moderate (4-7) Stop: 03/25/18 09:00 Last Admin: 03/23/18 09:04 Dose: 1 tab Simethicone (Mylicon Chew Tab) 80 mg PO [facility] Last Admin: 03/25/18 08:01 Dose: 80 mg Zolpidem Tartrate (Ambien) 5 mg PO [facility] Last Admin: 03/24/18 22:29 Dose: 5 mg - Labs Labs: 03/24/18 06:00 03/24/18 06:00 - Constitutional Appears: Well, Non-toxic, No Acute Distress - Head Exam Head Exam: ATRAUMATIC, NORMAL INSPECTION, NORMOCEPHALIC - Eye Exam Eye Exam: EOMI, Normal appearance, PERRL Pupil Exam: NORMAL ACCOMODATION, PERRL - ENT Exam ENT Exam: Mucous Membranes Moist, Normal Exam - Neck Exam Neck Exam: Full ROM, Normal Inspection. absent: Lymphadenopathy - Respiratory Exam Respiratory Exam: Clear to Ausculation Bilateral, NORMAL BREATHING PATTERN - Cardiovascular Exam Cardiovascular Exam: REGULAR RHYTHM, RRR, +S1, +S2. absent: Murmur - GI/Abdominal Exam GI & Abdominal Exam: Soft, Normal Bowel Sounds. absent: Tenderness Additional comments: bleeding from surgical site. wound intact. - Extremities Exam Extremities Exam: Full ROM, Normal Capillary Refill, Normal Inspection. absent: Joint Swelling, Pedal Edema - Back Exam Back Exam: NORMAL INSPECTION - Neurological Exam Neurological Exam: Alert, Awake, CN II-XII Intact, Normal Gait, Oriented x3 - Psychiatric Exam Psychiatric exam: Normal Affect, Normal Mood - Skin Skin Exam: Dry, Intact, Normal Color, Warm Assessment and Plan (1) DVT prophylaxis Status: Acute (2) Diverticulitis of colon with perforation Status: Chronic - Assessment and Plan (Free Text) Assessment: (1) DVT prophylaxis Assessment & Plan: scd nad aeh ose lovenox Status: Acute (2) Diverticulitis of colon with perforation Assessment & Plan: pain control surgery f/u liquids fever yesterday-bc and urine c/s pending. bw and urine noted cxr completed-negative Status: Chronic oozing from surgical site-likely r/t lovenox, pending surgical input
[2018-03-25 08:29] VITALS: RESP 20; TEMP 97.7; O2SAT 98
--- NOTE | 2018-03-25 09:02 | CP.PCM.PN ---
Subjective - Date & Time of Evaluation Date of Evaluation: 03/25/18 Time of Evaluation: 09:00 - Subjective Subjective: seen at bedside, no acute events. Tolerating low fiber diet, no nausea or vomiting. +flatus but no BM. Pt reports some serosanguenous drainage from wound site. Objective - Vital Signs/Intake and Output Vital Signs (last 24 hours): Temp Pulse Resp BP Pulse Ox 97.7 F 67 20 115/69 98 03/25/18 08:29 03/25/18 08:29 03/25/18 08:29 03/25/18 08:29 03/25/18 08:29 Intake and Output: 03/25/18 03/25/18 06:59 18:59 Intake Total 475 Balance 475 - Medications Medications: Current Medications Acetaminophen (Tylenol 325mg Tab) 650 mg PO Q6 PRN PRN Reason: Fever >100.4 F Last Admin: 03/23/18 17:24 Dose: 650 mg Aspirin (Ecotrin) 81 mg PO DAILY [facility] Last Admin: 03/25/18 08:01 Dose: 81 mg Docusate Sodium (Colace) 100 mg PO DAILY [facility] Last Admin: 03/25/18 08:01 Dose: 100 mg Enoxaparin Sodium (Lovenox) 40 mg SC DAILY [facility]; Protocol Last Admin: 03/25/18 08:01 Dose: 40 mg Gabapentin (Neurontin) 600 mg PO TID [facility] Last Admin: 03/25/18 08:02 Dose: 600 mg Hydromorphone HCl (Dilaudid) 0.5 mg IVP Q3 PRN PRN Reason: Pain, severe (8-10) Last Admin: 03/25/18 07:59 Dose: 0.5 mg Metoprolol Succinate (Toprol Xl) 50 mg PO DAILY [facility] Last Admin: 03/25/18 08:03 Dose: 50 mg Ondansetron HCl (Zofran Inj) 4 mg IVP ONCE PRN PRN Reason: Nausea/Vomiting Last Admin: 03/23/18 09:01 Dose: 4 mg Simethicone (Mylicon Chew Tab) 80 mg PO [facility] Last Admin: 03/25/18 08:01 Dose: 80 mg Zolpidem Tartrate (Ambien) 5 mg PO HS [facility] Last Admin: 03/24/18 22:29 Dose: 5 mg - Labs Labs: 03/24/18 06:00 03/24/18 06:00 - Constitutional Appears: Well, Non-toxic, No Acute Distress - Head Exam Head Exam: ATRAUMATIC, NORMOCEPHALIC - Eye Exam Eye Exam: Conjunctival injection, EOMI - Neck Exam Neck Exam: Full ROM, Normal Inspection - Respiratory Exam Additional comments: no acute respiratory distress - GI/Abdominal Exam Additional comments: soft, obese, tenderness to LLQ over previous ostomy site with minimal serosanguinous drainage. midline incision with steffany in place c/d/i. - Extremities Exam Extremities Exam: absent: Calf Tenderness, Pedal Edema Assessment and Plan - Assessment and Plan (Free Text) Assessment: s/p reversal of hartmanns -cont low fiber diet -pain control -cover LLQ incision with 4x4 if there is drainage -pt stable for dc
--- NOTE | 2018-03-25 09:52 | CP.PCM.DIS ---
Provider - Provider Date of Admission: 03/18/18 11:35 Attending physician: Jay Slaughter MD Primary care physician: Abilio Pena Consults: 03/18/18 10:25 Physician Consult Routine Comment: Consulting Provider: Jacques Hanson Consulting Physician: Jacques Hanson Reason for Consult: Medical management for htn Time Spent in preparation of Discharge (in minutes): 40 Hospital Course - Lab Results Lab Results: Micro Results 03/24/18 05:45 Urine Random Urine Culture - Final No Growth (<1,000 CFU/ML) 03/23/18 19:00 Blood Blood Culture - Preliminary NO GROWTH AFTER 24 HOURS Most Recent Lab Values WBC 4.0 K/uL (4.8-10.8) L 03/24/18 06:00 RBC 3.84 Mil/uL (4.40-5.90) L 03/24/18 06:00 Hgb 12.1 g/dL (12.0-18.0) 03/24/18 06:00 Hct 33.2 % (35.0-51.0) L 03/24/18 06:00 MCV 86.4 fl (80.0-94.0) 03/24/18 06:00 MCH 31.6 pg (27.0-31.0) H 03/24/18 06:00 MCHC 36.5 g/dL (33.0-37.0) 03/24/18 06:00 RDW 12.5 % (11.5-14.5) 03/24/18 06:00 Plt Count 218 K/uL (130-400) 03/24/18 06:00 MPV 6.4 fl (7.2-11.7) L 03/24/18 06:00 Neut % (Auto) 72.7 % (50.0-75.0) 03/24/18 06:00 Lymph % (Auto) 9.8 % (20.0-40.0) L 03/24/18 06:00 Assumption % (Auto) 13.7 % (0.0-10.0) H 03/24/18 06:00 Eos % (Auto) 3.4 % (0.0-4.0) 03/24/18 06:00 Baso % (Auto) 0.4 % (0.0-2.0) 03/24/18 06:00 Neut # (Auto) 2.9 K/uL (1.8-7.0) 03/24/18 06:00 Lymph # (Auto) 0.4 K/uL (1.0-4.3) L 03/24/18 06:00 Assumption # (Auto) 0.5 K/uL (0.0-0.8) 03/24/18 06:00 Eos # (Auto) 0.1 K/uL (0.0-0.7) 03/24/18 06:00 Baso # (Auto) 0.0 K/uL (0.0-0.2) 03/24/18 06:00 Neutrophils % (Manual) 83 % (42-75) H 03/23/18 06:32 Lymphocytes % (Manual) 5 % (20-50) L 03/23/18 06:32 Reactive Lymphs % 1 % (0-0) H 03/23/18 06:32 Monocytes % (Manual) 9 % (0-10) 03/23/18 06:32 Eosinophils % (Manual) 2 % (0-7) 03/23/18 06:32 Platelet Estimate Normal (NORMAL) 03/23/18 06:32 RBC Morphology Normal (NORMAL) 03/23/18 06:32 Sodium 133 mmol/l (132-148) 03/24/18 06:00 Potassium 3.6 MMOL/L (3.6-5.0) 03/24/18 06:00 Chloride 98 mmol/L (98-107) 03/24/18 06:00 Carbon Dioxide 27 mmol/L (22-30) 03/24/18 06:00 Anion Gap 12 (10-20) 03/24/18 06:00 BUN 9 mg/dl (9-20) 03/24/18 06:00 Creatinine 0.7 mg/dl (0.8-1.5) L 03/24/18 06:00 Est GFR ( Amer) > 60 03/24/18 06:00 Est GFR (Non-Af Amer) > 60 03/24/18 06:00 Random Glucose 120 mg/dL (75-110) H 03/24/18 06:00 Lactic Acid 0.7 MMOL/L (0.7-2.1) 03/23/18 18:50 Calcium 8.7 mg/dL (8.4-10.2) 03/24/18 06:00 Phosphorus 3.5 mg/dl (2.5-4.5) 03/23/18 06:32 Magnesium 2.1 MG/DL (1.6-2.3) 03/23/18 06:32 Total Bilirubin 1.0 mg/dl (0.2-1.3) 03/19/18 07:53 AST 28 U/L (17-59) 03/19/18 07:53 ALT 20 U/L (21-72) L 03/19/18 07:53 Alkaline Phosphatase 60 U/L (38-126) 03/19/18 07:53 Total Protein 6.5 G/DL (6.3-8.2) 03/19/18 07:53 Albumin 3.5 g/dL (3.5-5.0) 03/19/18 07:53 Globulin 3.0 gm/dL (2.2-3.9) 03/19/18 07:53 Albumin/Globulin Ratio 1.2 (1.0-2.1) 03/19/18 07:53 Urine Color Yellow (YELLOW) 03/24/18 05:45 Urine Clarity Clear (Clear) 03/24/18 05:45 Urine pH 6.0 (5.0-8.0) 03/24/18 05:45 Ur Specific Morton 1.009 (1.003-1.030) 03/24/18 05:45 Urine Protein Negative mg/dL (NEGATIVE) 03/24/18 05:45 Urine Glucose (UA) Neg mg/dL (NEGATIVE) 03/24/18 05:45 Urine Ketones Negative mg/dL (NEGATIVE) 03/24/18 05:45 Urine Blood Negative (NEGATIVE) 03/24/18 05:45 Urine Nitrate Negative (NEGATIVE) 03/24/18 05:45 Urine Bilirubin Negative (NEGATIVE) 03/24/18 05:45 Urine Urobilinogen 1.0 mg/dL (0.2-1.0) 03/24/18 05:45 Ur Leukocyte Esterase Neg Didier/uL (Negative) 03/24/18 05:45 Urine Microscopic WBC 1 /hpf (0-5) 03/24/18 05:45 Blood Type O POSITIVE 03/18/18 07:01 Antibody Screen Negative 03/18/18 07:01 BBK History Checked Patient has bt 03/18/18 07:01 - Hospital Course Hospital Course: 62M presented for reversal of kika's ostomy. Patient stays in hospital post op for monitoring of return of bowel function. Patient post op course was uneventful except one fever of 102 which resolved immediately. Cultures negative. Patient now tolerating soft diet and having bowel function. ready to go home. Discharge Exam - Head Exam Head Exam: ATRAUMATIC, NORMOCEPHALIC - Respiratory Exam Respiratory Exam: NORMAL BREATHING PATTERN - Cardiovascular Exam Cardiovascular Exam: REGULAR RHYTHM, +S1, +S2 - GI/Abdominal Exam Additional comments: soft, obese, tenderness to LLQ over previous ostomy site with minimal serosanguinous drainage. midline incision with steffany in place c/d/i. - Neurological Exam Neurological exam: Alert Discharge Plan - Follow Up Plan Condition: GOOD Disposition: HOME/ ROUTINE Instructions: Low Fiber Diet, Ostomy Reversal Additional Instructions: follow up with primary MD and surgeon 1 week Referrals: Abilio Pena MD [Primary Care Provider] - Jay Slaughter MD [Staff Provider] -
== END 2018-03-25 14:14 | disposition home or self-care (01) | DRG 337 ==
LOC: H.OPSURG 05:44 → H.MEDSURG1 11:35
PROVIDERS: ADMIT Surgery; ATTEND Surgery
PROC: 3E0T3BZ Introduction of Anesthetic Agent into Peripheral Nerves and Plexi, Percutaneous Approach (ICD-10-PCS; 2018-03-18)
PROC: 3E0T33Z Introduction of Anti-inflammatory into Peripheral Nerves and Plexi, Percutaneous Approach (ICD-10-PCS; 2018-03-18)
PROC: 0DSN0ZZ Reposition Sigmoid Colon, Open Approach (ICD-10-PCS; principal; 2018-03-18 07:45)
PROC: 0DNW0ZZ Release Peritoneum, Open Approach (ICD-10-PCS; 2018-03-18 07:45)
DX: Z43.3 Encounter for attention to colostomy (principal); Z43.4 Encounter for attention to other artificial openings of digestive tract; K66.0 Peritoneal adhesions (postprocedural) (postinfection); R50.82 Postprocedural fever; I10 Essential (primary) hypertension; Z87.19 Personal history of other diseases of the digestive system; Z87.891 Personal history of nicotine dependence